=== PATIENT | male | born 1970 | race Caucasian/White ===

== ENCOUNTER 2020-03-05 11:22 | Inpatient (IN) | payer MEDICARE, OTHER, SELFPAY ==
--- NOTE | 2020-03-05 11:25 | ED.PSYCH ---
HPI - Psych General Chief Complaint: Psychiatric Symptoms Stated Complaint: SECTION 12 SI W/PLAN,TROUBLE BREATHING ? COVID Time Seen by Provider: 03/05/20 11:25 Source: patient and EMS Mode of arrival: EMS Limitations: no limitations History of Present Illness HPI Narrative: 49 yo male on section 12 for SI - here with c/o whole body pain, constipation x 1 year, dyspnea - his mom is sick he thinks she has COVID MD complaint: suicidal ideation and feels depressed Onset (ago): week(s) Duration: constant History of same: Yes Relieving factors: none Exacerbating factors: none Context: significant life stressor Associated psychiatric symptoms: depression and suicidal ideation Associated symptoms: other (dyspnea, body aches, feels weak, constipated) Treatments prior to arrival: placed on mental health hold If self harm: admits thoughts of self harm Related Data Home Medications Medication Instructions Recorded Confirmed albuterol sulfate [Ventolin HFA] 2 puff INHALATION Q4H PRN 03/05/20 03/05/20 atorvastatin 80 mg PO BEDTIME 03/05/20 03/05/20 carvedilol 3.125 mg PO BID 03/05/20 03/05/20 clopidogrel 75 mg PO DAILY 03/05/20 03/05/20 insulin aspart U-100 [Novolog SUBCUT 03/05/20 U-100 Insulin aspart] insulin detemir U-100 [Levemir 25 unit SUBCUT BID 03/05/20 03/05/20 U-100 Insulin] metformin 1,000 mg PO BID 03/05/20 03/05/20 naltrexone microspheres [Vivitrol] 4 ml IM Q4W 03/05/20 03/05/20 sertraline 50 mg PO DAILY 03/05/20 03/05/20 valsartan 80 mg PO DAILY 03/05/20 03/05/20 Allergies Allergy/AdvReac Type Severity Reaction Status Date / Time levofloxacin [From Levaquin] AdvReac Rash Verified 03/05/20 11:45 morphine AdvReac Vomiting Verified 03/05/20 11:45 Penicillins AdvReac Rash Verified 03/05/20 11:45 Review of Systems Review of Systems: Constitutional : No Fever, pos Chills ENT/Mouth : No sore throat, No Rhinorrhea, No Swallowing Difficulty Eyes: No Eye Pain, No Swelling, No Redness Cardiovascular : No Chest Pain, positive SOB, No Orthopnea, positive Edema Respiratory : No Cough, No Sputum, No Wheezing, positive dyspnea Gastrointestinal : pos Nausea, No Vomiting, No Diarrhea, pos abdominal Pain, No Hematochezia, No Melena Genitourinary : No Dysuria, No Urinary Frequency, No Hematuria Musculoskeletal : No joint pain, No Myalgias Skin : No Skin Lesions, No rash Neuro : pos Weakness, No Numbness, No Dizziness, No Headache Psych : No Anxiety/Panic, pos Depression, pos SI Heme/Lymph: No Bruising, No Lymphadenopathy Endocrine : No Polyuria, No Polydipsia All other systems reviewed and are negative [facility] Past Medical History Medical History Depression Diabetes Social History Social History Alcohol intake: never Smoking Status: Never smoker Use of substances other than those prescribed or required for medical reasons: Yes Substance Use Type: Crack/Cocaine Advance Directives: No Advance Directives Information Provided: No Physical Exam Vital Signs: Vital Signs: Last Vital Signs Temp 98.3 F 03/05/20 11:39 Pulse 85 03/05/20 11:39 Resp 16 03/05/20 11:39 BP 113/63 03/05/20 11:39 Pulse Ox 96 03/05/20 11:39 Body Mass Index 32.0 Appearance: Alert. Oriented X3. No acute distress. Eyes: Pupils equal, round and reactive to light. ENT: Pharynx normal. Neck: Normal inspection. Neck supple. CVS: Normal heart rate and rhythm. Pulses normal. Respiratory: No respiratory distress. Breath sounds normal. Abdomen: Soft and nontender. Skin: Skin warm and dry. Normal skin color. Normal skin turgor. Extremities: No lower extremity edema. No calf ttp Neuro: Oriented X 3. No motor deficit. No sensory deficit. Course Course Course Narrative: signed out pending repeat troponin, ddimer under upper limits of normal , no hypoxia, no tachycardia, unknown cause for elevated troponin MDM - Psych MDM Narrative Medical decision making narrative: 49 yo male with multiple medical problems here with c/o not feeling x 2 weeks both mentally and physically here on section 12 for SI reports c/o whole body pain, feels short of breath, constipated x 1 year, at this time will obtain basic labs, EKG, CXR covid test, CT scan for mass - if medical workup negative anticipate referral to [facility] for psychiatric component Lab Data Result diagrams: 03/05/20 12:21 03/05/20 12:22 Labs: Lab Results 03/05/20 03/05/20 03/05/20 Range/Units 11:53 12:21 12:22 WBC 12.5 H (4.8-10.8) X10*3/uL RBC 4.52 L (4.60-5.80) X10*6/uL Hgb 13.2 L (14.0-18.0) g/dl Hct 39.0 L (42-52) % MCV 86.3 (80-98) fL MCH 29.2 (27.0-33.0) pg MCHC 33.8 (31.0-36.0) g/dl RDW 12.9 (11.0-16.0) % Plt Count 329 (160-400) X10*3/uL MPV 10.7 (9.4-12.4) fL Immature Gran % (Auto) 0.4 (0.0-0.4) % Neut % (Auto) 74.9 H (45-73) % Lymph % (Auto) 17.3 L (20-40) % [place] % (Auto) 6.3 (2-11) % Eos % (Auto) 0.9 (0-4) % Baso % (Auto) 0.2 (0-2) % Lymph # (Auto) 2.2 (1.2-4.9) X10*3/uL [place] # (Auto) 0.8 (0.1-1.2) X10*3/uL Eos # (Auto) 0.1 (0.0-0.4) X10*3/uL Baso # (Auto) 0.0 (0.0-0.2) X10*3/uL Abs Immat Gran (auto) 0.05 H (0.00-0.03) X10*3/uL Absolute Neuts (auto) 9.4 H (2.0-8.3) X10*3/uL Absolute Nucleated RBC 0.000 (0.0-0.012) X10*3/uL Nucleated RBC % (auto) 0.0 (0.0-0.2) /100WBC D-Dimer 274 NG/ML Hold Blue Top SEE NOTE Sodium (135-145) mmol/L Potassium (3.3-5.1) mmol/l Chloride (96-108) mmol/L Carbon Dioxide (22-29) mmol/L Anion Gap (12-20) BUN (9-16) mg/dL Creatinine (0.5-1.4) mg/dL Estim Creat Clear Calc Estimated GFR POC Glucose 389 H* (60-115) mg/dL Random Glucose (60-115) mg/dL Calcium (8.4-10.2) mg/dL Magnesium (1.6-2.6) mg/dL Total Bilirubin (0.0-1.0) mg/dL Direct Bilirubin (0.0-0.5) mg/dL AST (5-37) U/L ALT (0-40) U/L Alkaline Phosphatase (39-117) U/L Total Creatine Kinase (38-174) U/L Troponin I High Sens (<3.5-35.0) ng/L B-Natriuretic Peptide (<100) pg/mL Total Protein (6.5-8.0) g/dL Albumin (3.5-5.0) g/dL Lipase (8-78) U/L Coronavirus (PCR) (Negative) Influenza Type A (PCR) (Negative) Influenza Type B (PCR) (Negative) RSV RNA Qual (PCR) (Negative) 03/05/20 03/05/20 03/05/20 Range/Units 12:22 12:22 12:22 WBC (4.8-10.8) X10*3/uL RBC (4.60-5.80) X10*6/uL Hgb (14.0-18.0) g/dl Hct (42-52) % MCV (80-98) fL MCH (27.0-33.0) pg MCHC (31.0-36.0) g/dl RDW (11.0-16.0) % Plt Count (160-400) X10*3/uL MPV (9.4-12.4) fL Immature Gran % (Auto) (0.0-0.4) % Neut % (Auto) (45-73) % Lymph % (Auto) (20-40) % [place] % (Auto) (2-11) % Eos % (Auto) (0-4) % Baso % (Auto) (0-2) % Lymph # (Auto) (1.2-4.9) X10*3/uL [place] # (Auto) (0.1-1.2) X10*3/uL Eos # (Auto) (0.0-0.4) X10*3/uL Baso # (Auto) (0.0-0.2) X10*3/uL Abs Immat Gran (auto) (0.00-0.03) X10*3/uL Absolute Neuts (auto) (2.0-8.3) X10*3/uL Absolute Nucleated RBC (0.0-0.012) X10*3/uL Nucleated RBC % (auto) (0.0-0.2) /100WBC D-Dimer NG/ML Hold Blue Top Sodium 135 (135-145) mmol/L Potassium 4.8 (3.3-5.1) mmol/l Chloride 98 (96-108) mmol/L Carbon Dioxide 26 (22-29) mmol/L Anion Gap 16 (12-20) BUN 24 H (9-16) mg/dL Creatinine 1.05 (0.5-1.4) mg/dL Estim Creat Clear Calc 120.6 Estimated GFR > 60 POC Glucose (60-115) mg/dL Random Glucose 392 H* (60-115) mg/dL Calcium 9.3 (8.4-10.2) mg/dL Magnesium 1.9 (1.6-2.6) mg/dL Total Bilirubin 0.5 (0.0-1.0) mg/dL Direct Bilirubin 0.2 (0.0-0.5) mg/dL AST 12 (5-37) U/L ALT 17 (0-40) U/L Alkaline Phosphatase 132 H (39-117) U/L Total Creatine Kinase 83 (38-174) U/L Troponin I High Sens 207.9 H (<3.5-35.0) ng/L B-Natriuretic Peptide 481 H (<100) pg/mL Total Protein 6.8 (6.5-8.0) g/dL Albumin 3.7 (3.5-5.0) g/dL Lipase 36 (8-78) U/L Coronavirus (PCR) NEGATIVE (Negative) Influenza Type A (PCR) NEGATIVE (Negative) Influenza Type B (PCR) NEGATIVE (Negative) RSV RNA Qual (PCR) NEGATIVE (Negative) ECG Data Attestation: I personally reviewed and interpreted this ECG as follows: ECG interpretation date: 03/05/20 ECG interpretation time: 12:11 Interpretation: Rate: 86 Rhythm: NSR [place]: normal Normal P waves. Normal YOBANY. Normal QRS complex. ST T wave : no RADHA, nonspecific 1 and aVL qTC: normal prior studies: no acute ischemia The study has been interpreted contemporaneously by me. . Discharge Plan Discharge Clinical Impression: Acute depression, Myalgia Prescriptions: No Action metformin 500 mg tablet 1,000 mg PO BID RF: 0 atorvastatin 80 mg tablet 80 mg PO BEDTIME RF: 0 valsartan 80 mg tablet 80 mg PO DAILY RF: 0 clopidogrel 75 mg tablet 75 mg PO DAILY RF: 0 carvedilol 3.125 mg tablet 3.125 mg PO BID RF: 0 insulin aspart U-100 [Novolog U-100 Insulin aspart] 100 unit/mL solution subcut RF: 0 albuterol sulfate [Ventolin HFA] 90 mcg/actuation HFA aerosol inhaler 2 puff inhalation Q4H PRN (Reason: Shortness Of Breath) RF: 0 sertraline 50 mg tablet 50 mg PO DAILY RF: 0 Levemir U-100 Insulin 100 unit/mL solution 25 unit subcut BID RF: 0 Vivitrol 380 mg suspension,extended rel recon 4 ml IM Q4W RF: 0
[2020-03-05 11:28] VITALS: BP 113/63; PULSE 85; RESP 16; TEMP 36.8; O2SAT 96; BMI 32.0
[2020-03-05 11:39] VITALS: BP 113/63; PULSE 85; RESP 16; TEMP 36.8; O2SAT 96
--- NOTE | 2020-03-05 11:47 | CT_ITS ---
EXAMINATION: CT CHEST, ABDOMEN AND PELVIS WITHOUT IV CONTRAST CLINICAL INFORMATION: DYSPNEA. ABDOMINAL PAIN. COMPARISON: None TECHNIQUE: Axial images through the chest, abdomen and pelvis without oral or IV contrast. Sagittal and coronal reconstructions on the technologist workstation were performed. FINDINGS: Chest: Exam is limited due to artifact from respiratory motion. There is atelectasis or small infiltrate seen in the left lower lobe and there is a 3 mm right upper lobe nodule axial image 140 series 8. There are 2 small 3 and 2 mm peripheral or subpleural right upper lobe nodules adjacent to the minor fissure axial image 228 series 8. This probably represent small lymph nodes. The lungs are otherwise clear. The visualized thyroid gland is unremarkable. There is coronary artery calcification. The mediastinum is otherwise unremarkable. There is no pleural effusion or pneumothorax. No chest wall mass or enlarged axillary lymph nodes are seen. There are degenerative changes of the spine. Bony structures are unremarkable. Abdomen and pelvis: The liver is normal in size, shape and attenuation. There is high density seen dependently in the gallbladder suggestive of small gallstones. Gallbladder is otherwise normal. There is no biliary duct dilatation. The spleen is unremarkable. Pancreas is unremarkable. The adrenal glands and kidneys are unremarkable. The bladder is unremarkable. Prostate gland does not appear enlarged. Small and large bowel is unremarkable. There is a small umbilical hernia containing fat. There is evidence of mild atherosclerotic disease. No ascites or adenopathy is seen. There are degenerative changes of the lumbar spine and scoliosis. There is a Schmorl's node versus mild compression fracture of the right superior endplate of the L3 vertebral body. There are degenerative changes at the hip joints. CT/CT abdomen pelvis wo con IMPRESSION: Chest: Limited exam due to artifact from respiratory motion. Question atelectasis or small infiltrate in the left lower lobe. Small right upper lobe pulmonary nodules probably representing subpleural intrapulmonary lymph nodes. Coronary artery calcification. Abdomen and pelvis: Probable small gallstones.
[2020-03-05 12:05] LABS: Glucose, Whole Blood 389 mg/dL (60-115)
[2020-03-05 12:54] LABS: MANUAL DIFF FLAG NO
[2020-03-05 13:02] LABS: Basophils Percent Auto 0.2 % (0-2); Eosinophils Absolute Auto 0.1 X10*3/uL (0.0-0.4); Eosinophils Percent Auto 0.9 % (0-4); Hemoglobin 13.2 g/dl (14.0-18.0); Imm Gran Abs Auto 0.05 X10*3/uL (0.00-0.03); Imm Gran Pct Auto 0.4 % (0.0-0.4); Lymphocytes Absolute Auto 2.2 X10*3/uL (1.2-4.9); Lymphocytes Percent Auto 17.3 % (20-40); Mean Corpuscular HGB Conc 33.8 g/dl (31.0-36.0); Mean Corpuscular Hemoglobin 29.2 pg (27.0-33.0); Mean Corpuscular Volume 86.3 fL (80-98); Mean Platelet Volume 10.7 fL (9.4-12.4); Monocytes Absolute Auto 0.8 X10*3/uL (0.1-1.2); Monocytes Percent Auto 6.3 % (2-11); Neutrophils Absolute Auto 9.4 X10*3/uL (2.0-8.3); Neutrophils Percent Auto 74.9 % (45-73); Platelet Count 329 X10*3/uL (160-400); Red Blood Count 4.52 X10*6/uL (4.60-5.80); Red Cell Distribution Width 12.9 % (11.0-16.0); White Blood Count 12.5 X10*3/uL (4.8-10.8)
[2020-03-05 13:37] LABS: Influenza A PCR NEGATIVE (Negative); Influenza B PCR NEGATIVE (Negative); Resp Syncy Virus RNA Qual PCR NEGATIVE (Negative); SARS COV2 PCR INHOUSE NEGATIVE (Negative)
[2020-03-05 13:42] LABS: Alanine Aminotransferase 17 U/L (0-40); Albumin Level 3.7 g/dL (3.5-5.0); Alkaline Phosphatase 132 U/L (39-117); Anion Gap 16 (12-20); Aspartate Amino Transferase 12 U/L (5-37); Bilirubin Direct 0.2 mg/dL (0.0-0.5); Bilirubin Total 0.5 mg/dL (0.0-1.0); Blood Urea Nitrogen 24 mg/dL (9-16); Calcium 9.3 mg/dL (8.4-10.2); Carbon Dioxide 26 mmol/L (22-29); Chloride 98 mmol/L (96-108); Creatinine Clr Calc Pharmacy 120.6; Estimated Glomerular Filt Rate > 60; Glucose Random 392 mg/dL (60-115); Lipase 36 U/L (8-78); Magnesium 1.9 mg/dL (1.6-2.6); Potassium 4.8 mmol/l (3.3-5.1); Sodium 135 mmol/L (135-145); Total Protein 6.8 g/dL (6.5-8.0)
[2020-03-05 13:44] LABS: B Type Natriuretic Peptide 481 pg/mL (<100); Troponin-I High Sensitivity 207.9 ng/L (<3.5-35.0)
[2020-03-05 13:57] LABS: D Dimer 274 NG/ML
[2020-03-05] MEDS: Aspirin 81 MG TAB.CHEW 162 MG PO (13:57)
[2020-03-05] MEDS: Insulin Regular, Human 100 UNIT/ML 3 ML VIAL IVPUSH (13:57)
--- NOTE | 2020-03-05 16:26 | ECG_ITS ---
Test Reason : REPEAT Blood Pressure : / mmHG Vent. Rate : 079 BPM Atrial Rate : 079 BPM P-R Int : 158 ms QRS Dur : 116 ms QT Int : 388 ms P-R-T Axes : 037 -20 099 degrees QTc Int : 444 ms Normal sinus rhythm Low voltage QRS Inferior infarct , age undetermined Abnormal ECG When compared with ECG of 05-MAR-2020 11:40, No significant change was found Referred By: Baljeet Jolly Electronically Signed By:KENNEDY RESENDEZ
--- NOTE | 2020-03-05 16:27 | ECG_ITS ---
Test Reason : CHEST PAIN Blood Pressure : / mmHG Vent. Rate : 086 BPM Atrial Rate : 086 BPM P-R Int : 156 ms QRS Dur : 114 ms QT Int : 368 ms P-R-T Axes : 044 -17 094 degrees QTc Int : 440 ms Normal sinus rhythm Low voltage QRS Nonspecific ST and T wave abnormality Abnormal ECG No previous ECGs available Referred By: Baljeet Jolly Electronically Signed By:KENNEDY RESENDEZ
--- NOTE | 2020-03-05 16:29 | PC.NURSE ---
Patient states to MD and this nurse that he no longer feels si. sitter was removed.
--- NOTE | 2020-03-05 16:45 | CA_ITS ---
Transthoracic Echocardiogram Patient (Last, First, Middle): Kyle Shepard, Gender: Male Date of : 1970 Age: 49 Procedure Date: 03/05/2020 Procedure Type: Transthoracic Echocardiogram Location: ER Height: 195.58 cm Weight: 122.47 kg BSA: 2.54 m2 Heart Rate: bpm BP: 124 / 76 mmHg Bicycle Service Technician: Referring MD: Baljeet Jolly MD Symptoms: elevated trop I for LV fn Study Quality: Technically Difficult due to obesity ECG Rhythm: Sinus Conclusions: - The left ventricular systolic function is moderate to severely decreased. The visually estimated ejection fraction is between 30-35%. - There is mild mitral valve regurgitation. Findings Procedure Information Contrast agent, definity, is being given per protocol without apparent complications. Left Ventricle Normal left ventricular cavity size. There is mildly increased left ventricular wall thickness. The left ventricular systolic function is moderate to severely decreased. The visually estimated ejection fraction is between 30-35%. The calculated ejection fraction is 32% by biplane method. Diastolic function is normal for age. Globally hypokinetic. Right Ventricle Mildly increased right ventricular cavity size. There is normal right ventricular systolic function. Atria The left atrium is mildly dilated. The right atrium is normal in size. Aortic Valve There is a normal trileaflet aortic valve. There is no aortic valve stenosis. There is trace (trivial) aortic valve regurgitation. Mitral Valve The mitral valve appears normal. There is mild mitral valve regurgitation. There is no mitral valve stenosis. Pulmonic Valve The pulmonic valve was not well visualized. Tricuspid Valve Normal tricuspid valve structure. There is trace tricuspid valve regurgitation. The pulmonary artery systolic pressure is normal. Great Vessels The aortic annulus, sinuses of valsalva, and asc aorta are normal in size. Venous The inferior vena cava was not well visualized. Pericardium/Pleural There is no evidence of pericardial effusion. Prior Study Comparison No prior study available for comparison. Measurements 2D Linear Measurements IVSd: 1.23 0.6-0.9/0.6-1.0 cm LVIDd: 5.54 3.9-5.3/4.2-5.9 cm LVIDd Index: 2.18 2.4-3.2/2.2-3.1 cm/m2 LVIDs: 4.41 2.0-3.6 cm LVPWd: 1.22 0.7-1.1 cm Ao Root: 3.20 2.1-3.5 cm LA Diam: 4.80 2.7-3.8/3.0-4.0 cm LAIDs Index: 1.89 1.5-2.3 cm/m2 LV Mass: 353.65 67-162/88-224 g LV Mass Index: 139.23 43-95/49-115 g/m2 LVOT Diam: 2.50 3.0+(-)1.3 cm 2D Systolic Function EF 4C: 32.00 >55% EF 2C: 27.20 >55% EF BiP: 31.70 >55% Mitral Valve MV Pk E: 0.81 MV PK A: 0.85 MV Decel Time: 176.00 E/A: 1.00 E'Lateral: 11.90 E'Medial: 6.87 E/E' Med: 11.80 E/E' Lat: 6.80 PHT: 52.00 MVA PHT: 4.23 Decel [place]: 4.60 Aortic Valve AoV Pk Peter: 1.30 AoV Mn Peter: 0.87 AoV VTI: 0.27 AoV Pk Grad: 7.00 Aov Mn Grad: 3.00 MARI Cont.VTI: 2.89 LVOT LVOT Pk Peter: 0.82 LVOT Mn Peter: 0.50 LVOT VTI: 0.16 LVOT Pk Grad: 3.00 LVOT Mn Grad: 1.00 LVOT Diam: 2.50 LVOT Area: 4.91 Diastolic Function MV Pk E: 0.81 MV Pk A: 0.85 E/A: 1.00 E'Medial: 6.87 E/E' Med: 11.80 E' Laterial: 11.90 E/E' Lat: 6.80 Tricuspid Valve TR Pk Peter: 2.08 TR Pk Grad: 17.00 RA Press: 3.00 RVSP: 20.00 Great Vessels Aorta Ao Root-2D: 3.20 2.0-3.7 cm Pulmonary Valve PV Pk Peter: 0.92 Peak PV Grad: 3.00 Updated in Other Vendor System with Status of Final Timothy Zapata MD electronically signed on 03/06/2020 12:05:40 PM with status of Final
[2020-03-05 16:46] LABS: Troponin-I High Sensitivity 212.8 ng/L (<3.5-35.0)
[2020-03-05] MEDS: Insulin Lispro 100 UNIT/ML 3 ML VIAL 10 UNIT SUBCUT (17:34)
[2020-03-05] MEDS: ondansetron HCL 4 MG/2 ML VIAL IVPUSH (17:35)
[2020-03-05] MEDS: Nitroglycerin 2 % Oint 1 GM Packet 0.5 INCH TRANSDERMA (17:35)
[2020-03-05] MEDS: 0.9 % Sodium Chloride 1,000 ML 999 ML IVCONT (17:35)
[2020-03-05 18:17] LABS: Glucose Urine UA >=1000 MG/DL (NEG); Leukocyte Esterase Urine NEG (NEG); Nitrite Urine NEG (NEG); PH 5.5 (5.0-8.0); Specific Gravity - Urine 1.015 (1.005-1.025); Urine Blood TRACE (NEG); Urine Ketones NEG (NEG); Urine Protein 2+ MG/DL (NEG-TRACE)
[2020-03-05 18:24] LABS: Appearance Urine CLEAR; Color Urine YELLOW
[2020-03-05 18:26] VITALS: BP 119/72; PULSE 92; RESP 18; O2SAT 96
[2020-03-05 18:38] LABS: Amphetamine Screen Urine Not Detected (Not Detect); Barbiturates, Urine Not Detected (Not Detect); Benzodiazepines Screen Urine Not Detected (Not Detect); Cannabinoid Screen Urine Not Detected (Not Detect); Cocaine Screen Urine POSITIVE (Not Detect); Opiate Screen Urine Not Detected (Not Detect); Phencyclidine Screen Urine Not Detected (Not Detect)
--- NOTE | 2020-03-05 18:38 | PM.EVENT ---
Event Note Date of Service: 03/06/20 Event Note: This patient is seen and examined with APC. Patient came with some question of chest tightness-positional, reproducible, question of pleuritic component also He also has some cough Denies any fever or chills He also says that as he feel constipated and also have reflux like symptoms. Active in cocaine user Has history of cardiomyopathy. Lab imaging, EKG reviewed.: Has mild leukocytosis, hyperglycemia/uncontrolled diabetes, troponin in range of 200 but deltoid less than 50 % Currently denies any chest pain or shortness of breath COVID negative CT chest-question of small pneumonia versus atelectasis Physical exam : Cvs: rrr, [id number] , no murmur res: fair air entry , has few rhonchii abd: no rebound or guarding ,nt, bs present. ext pulses present , no cyanosis neuro: axo3 , nonfocal. assessment and plan coordinated in APCs note, Agree with the plan in addition: 1. Probable pneumonia: We will treat with antibiotics Add procalcitonin level Since the symptom is maybe a week ago so we will add the are yes panel also just to see if viral uri. 2. Chest pain: Seems atypical Troponin positive but question may related to cocaine use History of cardiomyopathy Aspirin, nitro, in the ED cardio eval Will continue home medications for high blood pressure carvedilol , valsartan Continue aspirin and Plavix history history of cardiomyopathy as above. 3. Diabetes/hyperglycemia: Received 10 unit of subcutaneous lispro Please monitor fingersticks with coverage and continue home insulin regimen which Detemir Probably noncompliance to meds. 4. SI: Sitter Patient will need BH and clearance before discharge. He was counseled in detail to avoid cocaine-added drug screen avoid. Constipation sanchez we will add laxatives.
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
[2020-03-05 18:56] LABS: Bacteria Urine TRACE /LPF; Squamous Epithelial Cell Urine 1+ /LPF; UACC CULT YES
[2020-03-05 19:19] LABS: Procalcitonin 0.04 ng/mL
[2020-03-05 19:38] VITALS: BP 114/69; PULSE 81; RESP 17; TEMP 36.8; O2SAT 99
--- NOTE | 2020-03-05 19:44 | PC.NURSE ---
PT DIFF LAB DRAW CAUSING DELAY , PCT AT BEDSIDE NOW
[2020-03-05 19:49] LABS: Glucose, Whole Blood 354 mg/dL (60-115)
[2020-03-05 19:51] LABS: Prothrombin Time 12.4 SEC (10.8-13.0)
[2020-03-05 19:54] LABS: Partial Thromboplastin Time 32.2 SEC (24.1-38.0)
[2020-03-05] MEDS: cefTRIAXone sodium 1 GM in 0.9 % Sodium Chloride 50 ML IV (19:54)
[2020-03-05 20:03] LABS: Lactic Acid 1.5 mmol/L (0.5-2.0)
[2020-03-05] MEDS: Azithromycin 500 MG in 0.9 % Sodium Chloride 250 ML 125 MG IV (20:46)
--- NOTE | 2020-03-05 21:40 | MHC.CARE ---
CARE Team speaks with Jared at [facility] crisis services. [facility] assessed pt in the community with disposition for section 12 bedsearch. CARE Team communicates to [facility] that pt is being medically admitted. Med floor providers should reach out to [facility] crisis for re-eval once pt is medically cleared, should this be indicated at that time.
[2020-03-05 21:53] VITALS: BP 103/66; PULSE 96; RESP 16; TEMP 36.5; O2SAT 95
[2020-03-05 22:21] LABS: Glucose, Whole Blood 363 mg/dL (60-115)
[2020-03-05] MEDS: LORazepam 2 MG/ML VIAL 1 MG IVPUSH (22:28)
[2020-03-05 22:29] VITALS: BP 111/69; PULSE 81
[2020-03-05] MEDS: carvediloL 3.125 MG TABLET PO (22:29)
[2020-03-05] MEDS: Atorvastatin Calcium 80 MG TABLET PO (22:29)
[2020-03-05] MEDS: Insulin Lispro 100 UNIT/ML 3 ML VIAL SUBCUT (22:33)
[2020-03-05] MEDS: Insulin Glargine,Hum.rec.anlog 100 UNIT/ML 10 ML VIAL 35 UNIT SUBCUT (22:33)
[2020-03-05] MEDS: Enoxaparin Sodium 40 MG/0.4 ML SYRINGE SUBCUT (22:36)
[2020-03-06] VITALS (7 sets, daily range): BP systolic 98–135; BP diastolic 48–73; PULSE 75–86; RESP 15–19; TEMP 36.3–36.8; O2SAT 93–96; BMI 32.0
[2020-03-06 01:15] LABS: Glucose, Whole Blood 285 mg/dL (60-115)
[2020-03-06] MEDS: hydrOXYzine HCL 25 MG TABLET PO (01:34)
[2020-03-06] MEDS: 0.9 % Sodium Chloride Flush 3 ML SYRINGE IVFLUSH ×3 (01:34→15:32)
--- NOTE | 2020-03-06 02:14 | MHC.PIE ---
p: patient with report of chest tightness, better than on admission. ? repeat troponins? ? repeat EKG? i: assess patient, discuss with MD e: patient reports his chest tightness is now 5/10, worse on deep inspiration, worse with cough better on palpation, nonradiating. Patient described as feeling like heartburn, maybe? and better since that cream, endorsing that the nitropaste had helped. Reports hiccoughs. Troponins were drawn 2x earlier, last set at approximately 16:00, and not scheduled for repeat. Last EKG was done at 1647 03/05. Discussed with MD and no need to recheck troponins or recheck EKG at this time per MD.
[2020-03-06] MEDS: LORazepam 2 MG/ML VIAL 1 MG IVPUSH ×3 (05:02→21:38)
--- NOTE | 2020-03-06 05:13 | PC.NURSE ---
pt has meds in pt specific bin of Pod B
--- NOTE | 2020-03-06 05:31 | PC.NURSE ---
pt requested medication for anxiety. @ 330. ordered hydroxyzine. Pt took med and an hour late, said it didn't do shit for me . Requested a strong medication. Md ordered one time dose of Ativan 1 mg. Pt was able to fall asleep after med was given
[2020-03-06 06:15] LABS: MANUAL DIFF FLAG NO
[2020-03-06 06:28] LABS: Basophils Percent Auto 0.4 % (0-2); Eosinophils Absolute Auto 0.2 X10*3/uL (0.0-0.4); Eosinophils Percent Auto 2.2 % (0-4); Hematocrit 34.2 % (42-52); Hemoglobin 11.3 g/dl (14.0-18.0); Imm Gran Abs Auto 0.02 X10*3/uL (0.00-0.03); Imm Gran Pct Auto 0.2 % (0.0-0.4); Lymphocytes Percent Auto 32.3 % (20-40); Mean Corpuscular Hemoglobin 28.9 pg (27.0-33.0); Mean Corpuscular Volume 87.5 fL (80-98); Mean Platelet Volume 10.9 fL (9.4-12.4); Monocytes Absolute Auto 0.7 X10*3/uL (0.1-1.2); Monocytes Percent Auto 7.4 % (2-11); Neutrophils Absolute Auto 5.3 X10*3/uL (2.0-8.3); Neutrophils Percent Auto 57.5 % (45-73); Platelet Count 285 X10*3/uL (160-400); Red Blood Count 3.91 X10*6/uL (4.60-5.80); White Blood Count 9.1 X10*3/uL (4.8-10.8)
[2020-03-06 07:10] LABS: Anion Gap 14 (12-20); Blood Urea Nitrogen 27 mg/dL (9-16); Calcium 8.3 mg/dL (8.4-10.2); Carbon Dioxide 22 mmol/L (22-29); Chloride 102 mmol/L (96-108); Creatinine Clr Calc Pharmacy 124.1; Estimated Glomerular Filt Rate > 60; Glucose Random 269 mg/dL (60-115); Potassium 4.3 mmol/l (3.3-5.1); Sodium 134 mmol/L (135-145)
[2020-03-06 07:22] LABS: Glucose, Whole Blood 281 mg/dL (60-115)
[2020-03-06] MEDS: carvediloL 3.125 MG TABLET PO ×2 (08:39→20:53)
[2020-03-06] MEDS: Valsartan 80 MG TABLET PO (08:39)
[2020-03-06] MEDS: Sertraline HCL 50 MG TABLET PO (08:39)
[2020-03-06] MEDS: Clopidogrel Bisulfate 75 MG TABLET PO (08:39)
[2020-03-06] MEDS: Insulin Lispro 100 UNIT/ML 3 ML VIAL SUBCUT ×4 (08:41→20:55)
[2020-03-06] MEDS: polyethylene glycoL 3350 17 GM POWD.PACK PO (08:57)
[2020-03-06 09:16] LABS: Glucose, Whole Blood 349 mg/dL (60-115)
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
[2020-03-06 11:16] LABS: Adenovirus PCR Not Detected (Not Detect.); Bordetella parapertussis PCR Not Detected (Not Detect.); Bordetella pertussis PCR Not Detected (Not Detect.); Chlamydia pneumoniae PCR Not Detected (Not Detect.); Coronavirus 229E PCR Not Detected (Not Detect.); Coronavirus HKU1 PCR Not Detected (Not Detect.); Coronavirus NL63 PCR Not Detected (Not Detect.); Coronavirus OC43 PCR Not Detected (Not Detect.); Human metapneumovirus PCR Not Detected (Not Detect.); Influenza A PCR Not Detected (Not Detect.); Influenza B PCR Not Detected (Not Detect.); Mycoplasma pneumoniae PCR Not Detected (Not Detect.); Parainfluenza 1 PCR Not Detected (Not Detect.); Parainfluenza 2 PCR Not Detected (Not Detect.); Parainfluenza 3 PCR Not Detected (Not Detect.); Parainfluenza 4 PCR Not Detected (Not Detect.); RSV PCR Not Detected (Not Detect.); SARS-CoV-2 PCR Not Detected (Not Detect.)
[2020-03-06 11:16] LABS: Glucose, Whole Blood 293 mg/dL (60-115)
--- NOTE | 2020-03-06 11:35 | PC.NURSE ---
Patient extrememly agitated that he cannot receive IV ativan for anxiety. He is demanding to go home if you all wont give me IV meds. I dont want pills by mouth. They take to long to work. Dr silverman aware and pt is not allowed to sign out AMA d/t to SI status at present. Atarax ordered PO but pt is refusing. MD will be up to see patient when able this afternoon to discuss. Sitter continues to be with patient.
[2020-03-06] MEDS: guaiFEN/Codeine SF 200/20/10ML 10 ML LIQUID 5 ML PO ×2 (11:58→15:30)
[2020-03-06 12:16] LABS: Rhino/Enterovirus PCR Detected (Not Detect.)
--- NOTE | 2020-03-06 14:31 | HO.PM.IMPN ---
Subjective Subjective Date of Service: 03/06/20 Physical Exam Vital Signs: Vital Signs: Last Vital Signs Temp 97.8 F 03/06/20 11:20 Pulse 75 03/06/20 11:20 Resp 17 03/06/20 11:20 BP 106/48 L 03/06/20 11:20 Pulse Ox 94 03/06/20 11:20 Body Mass Index 32.0 Objective Data Current Medications Generic Name Dose Route Start Last Admin Trade Name Freq PRN Reason Stop Dose Admin Acetaminophen 650 mg 03/05/20 19:55 Acetaminophen 325 Mg Tablet PO Q6H PRN Pain, Mild (Pain Scale 1-3) Albuterol Sulfate 2 puff 03/05/20 19:55 Albuterol Sulfate 90 Mcg 8 Gm Inhaler INHALE Q4H PRN Shortness Of Breath Atorvastatin Calcium 80 mg 03/05/20 21:00 03/05/20 22:29 Atorvastatin Calcium 80 Mg Tablet PO 80 mg BEDTIME VISHNU Administration Carvedilol 3.125 mg 03/05/20 21:00 03/06/20 08:39 Carvedilol 3.125 Mg Tablet PO 3.125 mg BID VISHNU Administration Protocol Clopidogrel Bisulfate 75 mg 03/06/20 09:00 03/06/20 08:39 Clopidogrel Bisulfate 75 Mg Tablet PO 75 mg DAILY VISHNU Administration Docusate Sodium 100 mg 03/05/20 19:55 Docusate Sodium 100 Mg Capsule PO DAILY PRN Constipation Enoxaparin Sodium 40 mg 03/05/20 22:00 03/05/20 22:36 Enoxaparin Sodium 40 Mg/0.4 Ml Syringe SUBCUT 40 mg Q24H VISHNU Administration Guaifenesin/Codeine Phosphate 5 ml 03/06/20 10:00 03/06/20 11:58 Guaifen/Codeine Sf 200/20/10ml 10 Ml Liquid PO 5 ml Q4H VISHNU Administration Hydroxyzine HCl 25 mg 03/06/20 00:43 03/06/20 01:34 Hydroxyzine Hcl 25 Mg Tablet PO 25 mg Q6H PRN Administration anxiety/restlessness Ceftriaxone Sodium 1 gm/ 50 mls @ 100 mls/hr 03/05/20 18:45 03/05/20 20:35 Sodium Chloride IV Infused Q24H VISHNU Infusion Azithromycin 500 mg/ Sodium 250 mls @ 125 mls/hr 03/05/20 18:45 03/06/20 01:28 Chloride IV Infused Q24H VISHNU Infusion Insulin Glargine 35 unit 03/05/20 21:00 03/05/20 22:33 Insulin Glargine,Hum.Rec.Anlog 100 Unit/Ml 10 Ml Vial SUBCUT 35 unit BEDTIME VISHNU Administration Insulin Human Lispro 0 unit 03/05/20 21:00 03/06/20 12:47 Insulin Lispro 100 Unit/Ml 3 Ml Vial SUBCUT 6 unit QIDACHS VISHNU Administration Protocol Lorazepam 0.5 mg 03/06/20 11:45 Lorazepam 0.5 Mg Tablet PO Q8H PRN Anxiety Ondansetron HCl 4 mg 03/05/20 19:55 Ondansetron Hcl 4 Mg/2 Ml Vial IVPUSH Q8H PRN Nausea and Vomiting Pharmacy Consult 1 each 03/05/20 13:46 Consult Rx Perform Med Rec MISCELLANE ONCE PRN Consult order Polyethylene Glycol 17 gm 03/06/20 09:00 03/06/20 08:57 Polyethylene Glycol 3350 17 Gm Powd.Pack PO 17 gm DAILY VISHNU Administration Sertraline HCl 50 mg 03/06/20 09:00 03/06/20 08:39 Sertraline Hcl 50 Mg Tablet PO 50 mg DAILY VISHNU Administration Sodium Chloride 3 ml 03/06/20 00:00 03/06/20 08:43 0.9 % Sodium Chloride Flush 3 Ml Syringe IVFLUSH 3 ml QSHIFT VISHNU Administration Valsartan 80 mg 03/06/20 09:00 03/06/20 08:39 Valsartan 80 Mg Tablet PO 80 mg DAILY VISHNU Administration Protocol Labs CBC & Chem 7: 03/06/20 05:29 03/06/20 05:29 Microbiology Microbiology Results: Microbiology 03/05/20 18:00 Urine clean catch - Clean Catch Midstream Urine Culture - Preliminary No growth to date.
--- NOTE | 2020-03-06 14:32 | HO.PM.IMPN ---
Subjective Subjective Date of Service: 03/06/20 Interval History: dm hyperglycemia , chest pain Review of Systems chest pain seems to be improving has cough seems anxious Physical Exam Vital Signs: Vital Signs: Last Vital Signs Temp 97.8 F 03/06/20 11:20 Pulse 75 03/06/20 11:20 Resp 17 03/06/20 11:20 BP 106/48 L 03/06/20 11:20 Pulse Ox 94 03/06/20 11:20 Body Mass Index 32.0 Physical exam: Constitutional: Seems anxious, HEENT: Eyes anicteric, no discharge. Neck supple Cvs: rrr, [id number] , no murmur res: clear to auscultation ,no rhonchii or wheezing abd: no rebound or guarding ,nt, bs present. ext pulses present , no cyanosis neuro: axo3 , nonfocal. Objective Data Current Medications Generic Name Dose Route Start Last Admin Trade Name Freq PRN Reason Stop Dose Admin Acetaminophen 650 mg 03/05/20 19:55 Acetaminophen 325 Mg Tablet PO Q6H PRN Pain, Mild (Pain Scale 1-3) Albuterol Sulfate 2 puff 03/05/20 19:55 Albuterol Sulfate 90 Mcg 8 Gm Inhaler INHALE Q4H PRN Shortness Of Breath Atorvastatin Calcium 80 mg 03/05/20 21:00 03/05/20 22:29 Atorvastatin Calcium 80 Mg Tablet PO 80 mg BEDTIME VISHNU Administration Carvedilol 3.125 mg 03/05/20 21:00 03/06/20 08:39 Carvedilol 3.125 Mg Tablet PO 3.125 mg BID VISHNU Administration Protocol Clopidogrel Bisulfate 75 mg 03/06/20 09:00 03/06/20 08:39 Clopidogrel Bisulfate 75 Mg Tablet PO 75 mg DAILY VISHNU Administration Docusate Sodium 100 mg 03/05/20 19:55 Docusate Sodium 100 Mg Capsule PO DAILY PRN Constipation Enoxaparin Sodium 40 mg 03/05/20 22:00 03/05/20 22:36 Enoxaparin Sodium 40 Mg/0.4 Ml Syringe SUBCUT 40 mg Q24H VISHNU Administration Guaifenesin/Codeine Phosphate 5 ml 03/06/20 10:00 03/06/20 11:58 Guaifen/Codeine Sf 200/20/10ml 10 Ml Liquid PO 5 ml Q4H VISHNU Administration Hydroxyzine HCl 25 mg 03/06/20 00:43 03/06/20 01:34 Hydroxyzine Hcl 25 Mg Tablet PO 25 mg Q6H PRN Administration anxiety/restlessness Ceftriaxone Sodium 1 gm/ 50 mls @ 100 mls/hr 03/05/20 18:45 03/05/20 20:35 Sodium Chloride IV Infused Q24H VISHNU Infusion Azithromycin 500 mg/ Sodium 250 mls @ 125 mls/hr 03/05/20 18:45 03/06/20 01:28 Chloride IV Infused Q24H VISHNU Infusion Insulin Glargine 35 unit 03/05/20 21:00 03/05/20 22:33 Insulin Glargine,Hum.Rec.Anlog 100 Unit/Ml 10 Ml Vial SUBCUT 35 unit BEDTIME VISHNU Administration Insulin Human Lispro 0 unit 03/05/20 21:00 03/06/20 12:47 Insulin Lispro 100 Unit/Ml 3 Ml Vial SUBCUT 6 unit QIDACHS VISHNU Administration Protocol Lorazepam 0.5 mg 03/06/20 11:45 Lorazepam 0.5 Mg Tablet PO Q8H PRN Anxiety Ondansetron HCl 4 mg 03/05/20 19:55 Ondansetron Hcl 4 Mg/2 Ml Vial IVPUSH Q8H PRN Nausea and Vomiting Pharmacy Consult 1 each 03/05/20 13:46 Consult Rx Perform Med Rec MISCELLANE ONCE PRN Consult order Polyethylene Glycol 17 gm 03/06/20 09:00 03/06/20 08:57 Polyethylene Glycol 3350 17 Gm Powd.Pack PO 17 gm DAILY VISHNU Administration Sertraline HCl 50 mg 03/06/20 09:00 03/06/20 08:39 Sertraline Hcl 50 Mg Tablet PO 50 mg DAILY VISHNU Administration Sodium Chloride 3 ml 03/06/20 00:00 03/06/20 08:43 0.9 % Sodium Chloride Flush 3 Ml Syringe IVFLUSH 3 ml QSHIFT ON LICENSE OF [facility] Administration Valsartan 80 mg 03/06/20 09:00 03/06/20 08:39 Valsartan 80 Mg Tablet PO 80 mg DAILY IVSHNU Administration Protocol Labs CBC & Chem 7: 03/06/20 05:29 03/06/20 05:29 Microbiology Microbiology Results: Microbiology 03/05/20 18:00 Urine clean catch - Clean Catch Midstream Urine Culture - Preliminary No growth to date. Assessment and Plan (1) Elevated troponin: Status: Acute (2) Pneumonia: Status: Acute Assessment and Plan: 1. Probable pneumonia: We will treat with antibiotics blood cultures pending entero/rhino virus-uri positive continue antibiotics 2. Chest pain: Seems atypical Troponin positive but question may related to cocaine use History of cardiomyopathy Aspirin, nitro, in the ED cardio eval Will continue home medications for high blood pressure carvedilol , valsartan, aspirin and Plavix . 3. Diabetes/hyperglycemia: still uncontrolled fs 260-280 adjust lantus 40 units , adjusted sliding scale coverage. 4. SI/ mood : continue sertraline Sitter still anxious-add po ativan prn Patient will need BH and clearance before discharge. 5. cocaine abuse : utox positive psych eval
--- NOTE | 2020-03-06 15:33 | MHC.CM.PN ---
IMM 03/06/20 Male 49 DX SI elevated troponin. Pt lives with his mother. She is throwing me out per Pt report. He is independent with equipment. L BRICE, He has a prothesis @ home. He also has a WC. DP home vs [facility]. [facility] [place] will arrange for transportation. CM will follow.
[2020-03-06 16:27] LABS: Glucose, Whole Blood 350 mg/dL (60-115)
[2020-03-06] MEDS: cefTRIAXone sodium 1 GM in 0.9 % Sodium Chloride 50 ML IV (17:38)
[2020-03-06] MEDS: Azithromycin 500 MG in 0.9 % Sodium Chloride 250 ML 125 MG IV (18:34)
[2020-03-06 20:31] LABS: Glucose, Whole Blood 333 mg/dL (60-115)
[2020-03-06] MEDS: Atorvastatin Calcium 80 MG TABLET PO (20:53)
[2020-03-06] MEDS: Insulin Glargine,Hum.rec.anlog 100 UNIT/ML 10 ML VIAL 40 UNIT SUBCUT (20:54)
[2020-03-06] MEDS: Enoxaparin Sodium 40 MG/0.4 ML SYRINGE SUBCUT (20:55)
[2020-03-06] MEDS: Acetaminophen 325 MG TABLET 650 MG PO (21:38)
[2020-03-07 04:00] VITALS: PULSE 68
[2020-03-07] MEDS: LORazepam 0.5 MG TABLET PO ×2 (04:10→13:04)
[2020-03-07] MEDS: hydrOXYzine HCL 25 MG TABLET PO (04:11)
[2020-03-07 07:09] VITALS: BP 116/67; PULSE 75; RESP 19; TEMP 36.4; O2SAT 97
[2020-03-07 07:12] LABS: Glucose, Whole Blood 264 mg/dL (60-115)
[2020-03-07 07:17] LABS: Anion Gap 14 (12-20); Blood Urea Nitrogen 29 mg/dL (9-16); Calcium 8.1 mg/dL (8.4-10.2); Carbon Dioxide 23 mmol/L (22-29); Chloride 103 mmol/L (96-108); Creatinine Clr Calc Pharmacy 124.1; Estimated Glomerular Filt Rate > 60; Glucose Random 273 mg/dL (60-115); Potassium 4.5 mmol/l (3.3-5.1); Sodium 135 mmol/L (135-145)
[2020-03-07] MEDS: guaiFEN/Codeine SF 200/20/10ML 10 ML LIQUID 5 ML PO ×2 (08:22→13:04)
[2020-03-07] MEDS: Insulin Lispro 100 UNIT/ML 3 ML VIAL SUBCUT ×3 (08:22→16:46)
[2020-03-07] MEDS: Clopidogrel Bisulfate 75 MG TABLET PO (08:23)
[2020-03-07] MEDS: Sertraline HCL 50 MG TABLET PO (08:23)
[2020-03-07] MEDS: Valsartan 80 MG TABLET PO (08:23)
[2020-03-07] MEDS: carvediloL 3.125 MG TABLET PO (08:23)
[2020-03-07] MEDS: 0.9 % Sodium Chloride Flush 3 ML SYRINGE IVFLUSH (08:24)
--- NOTE | 2020-03-07 10:26 | MHC.RECOVRN ---
Addendum entered by Trudi Blandon 03/07/20 11:16: Pt stated I would stab myself in the heart because it doesn't work anyway. Original Note: Revovery Support Note: On 03/05/20 pt presented to [facility] [place] with SI and was found to have pneumonia and elevated cardiac enzymes. Pt admitted to [facility] [place]. T/w met with pt in 459-1 to discuss substance use, which patient was agreeable to. Pt initially began discussing cocaine use, $60 daily IN and smoked. Pt also reported using pain pills. Pt states I don't need no more fucking medication and reports hx of Suboxone, Vivitrol, shrinks, AA/NA involvement. Pt declines substance use treatment. Pt states My mom did drugs when I was a kid. She was very selfish. Pt reports that cocaine use began in late 20s and opiate use began 10-12 years ago, after my accident. Pt eluded to accident involving steel toe boots. 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 Pt quickly became angry and agitated while discussing past surgeries regarding accident and animosity towards provider who completed the surgeries, Dr. Segovia. Pt continued to state I'd love to bash his head in with a fucking baseball bat. When t/w asked about current support system, pt stated I'm homeless. My family don't want nothing to do with me. I don't have a family. They only care about themselves, they don't understand me. My sister is always on her high horse, I can't fucking stand her. I want to wring her neck. At this point patient is extremely agitated and demonstrating to t/w how he would wring her neck. Pt continues to state I'm hoping I in the hospital here. If not I'm going to fucking commit suicide. If I see my mom I'm going to get a pot and capps and bash her head in. I'm being honest with you because I can't stand her. Pt continued I want to explode. I don't even want to talk anymore. T/w sat with patient for a few more moments while patient began to calm down and cry. T/w provided patient with t/w card if patient would like to discuss recovery further. T/w discussed patient's statements and presentation with RN, Aleta. Dr. Lares was also made aware and N will be seeing patient for evaluation.
[2020-03-07 10:57] VITALS: BP 105/69; PULSE 73; RESP 20; TEMP 36.4; O2SAT 94
[2020-03-07 11:02] LABS: Glucose, Whole Blood 260 mg/dL (60-115)
--- NOTE | 2020-03-07 11:05 | MHC.CM.PN ---
Per ROUNDS discussion, Patient experiencing both SI and HI and needs to be seen by [facility] and possible Section 12.Patient is documented to have s/s of Agitation, r/t his denied request for IV Ativan for his Anxiety. Patient has a Sitter and a history of Cocaine Use. CM will follow for dc planning.
--- NOTE | 2020-03-07 12:32 | PM.EVENT ---
Event Note Date of Service: 03/07/20 Event Note: Addiction Consult Patient seen by Recovery Support RN, please see her note for further documentation. At this time patient will require crisis eval
--- NOTE | 2020-03-07 12:37 | P.PNCA_ITS ---
Subjective Subjective Date of Service: 03/07/20 Interval history: He complains of pain everywhere. Review of Systems Cardiovascular: Reports as per HPI, Reports chest pain, Denies syncope, Denies rapid heart rate, Denies pedal edema, Denies edema, Denies claudication, Denies Loss of Consciousness, Denies palpitations, Denies dyspnea and Denies dyspnea on exertion Respiratory: Denies dyspnea and Denies dyspnea on exertion Denies syncope Endocrine: Denies palpitations Physical Exam Vital Signs: Last Vital Signs Temp 97.5 F 03/07/20 10:57 Pulse 73 03/07/20 10:57 Resp 20 03/07/20 10:57 BP 105/69 03/07/20 10:57 Pulse Ox 94 03/07/20 10:57 Body Mass Index 32.0 Const General: cooperative, comfortable and no acute distress Orientation/consciousness: patient oriented x3 HENMT Other: Unremarkable Neck Neck: Yes normal visual inspection Chest Chest palpation & inspection: normal inspection of the chest Resp Auscultation: clear to auscultation bilaterally, no crackles and no wheezes Cardio Jugular venous distension: no JVD Palpation: normal PMI Heart sounds: S1 normal heart sound present, S2 normal heart sound present, no gallops, no murmurs and no rubs GI Palpation (GI): Soft to palpation Back/Spine/Pelvis Other: unremarkable Skin General skin exam: no rashes or lesions noted Neuro General: patient oriented x3 Extrem Other: Left BKA. Psych Mental Status: mental status grossly normal Results Labs and Meds Result diagrams: 03/06/20 05:29 03/07/20 05:40 Lab results: Laboratory Results - last 24 hr 03/06/20 03/06/20 03/07/20 16:24 20:28 05:40 Sodium 135 Potassium 4.5 Chloride 103 Carbon Dioxide 23 Anion Gap 14 BUN 29 H Creatinine 1.02 Estim Creat Clear Calc 124.1 Estimated GFR > 60 POC Glucose 350 H* 333 H Random Glucose 273 H Calcium 8.1 L 03/07/20 03/07/20 07:07 10:55 Sodium Potassium Chloride Carbon Dioxide Anion Gap BUN Creatinine Estim Creat Clear Calc Estimated GFR POC Glucose 264 H 260 H Random Glucose Calcium Progress Note: A&P Assessment and plan (1) Elevated troponin: Status: Acute (2) Atherosclerotic cardiovascular disease: Status: Acute (3) Cardiomyopathy: Problem details: LVEF 30-35% 2019 Status: Inactive (4) Cocaine abuse: Status: Inactive Assessment and Plan: Cardiac studies reviewed. Cardiac catheterization was noted from 2019. 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 Nonobstructive disease elsewhere. Left main was normal. Echocar diogram from 2019 from [facility] shows LVEF 30-35%. Moderate global hypokinesis. 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 His current troponin elevation at 207 and 212. Repeat echocardiogram with LVEF 30-35% and similar to prior. Could be related to stephenie sharda use. This could also be chronic myocardial injury. Does not appear to be acute coronary syndrome. Would optimize his medical therapy and refrain from cocaine use. No further work up at this time. Fall Risk Details Current Medications: Current Medications Generic Name Dose Route Start Last Admin Trade Name Freq PRN Reason Stop Dose Admin Acetaminophen 650 mg 03/05/20 19:55 03/06/20 21:38 Acetaminophen 325 Mg Tablet PO 650 mg Q6H PRN Administration Pain, Mild (Pain Scale 1-3) Albuterol Sulfate 2 puff 03/05/20 19:55 Albuterol Sulfate 90 Mcg 8 Gm Inhaler INHALE Q4H PRN Shortness Of Breath Atorvastatin Calcium 80 mg 03/05/20 21:00 03/06/20 20:53 Atorvastatin Calcium 80 Mg Tablet PO 80 mg BEDTIME VISHNU Administration Carvedilol 3.125 mg 03/05/20 21:00 03/07/20 08:23 Carvedilol 3.125 Mg Tablet PO 3.125 mg BID VISHNU Administration Protocol Clopidogrel Bisulfate 75 mg 03/06/20 09:00 03/07/20 08:23 Clopidogrel Bisulfate 75 Mg Tablet PO 75 mg DAILY VISHNU Administration Docusate Sodium 100 mg 03/05/20 19:55 Docusate Sodium 100 Mg Capsule PO DAILY PRN Constipation Enoxaparin Sodium 40 mg 03/05/20 22:00 03/06/20 20:55 Enoxaparin Sodium 40 Mg/0.4 Ml Syringe SUBCUT 40 mg Q24H VISHNU Administration Guaifenesin/Codeine Phosphate 5 ml 03/06/20 10:00 03/07/20 08:22 Guaifen/Codeine Sf 200/20/10ml 10 Ml Liquid PO 5 ml Q4H VISHNU Administration Hydroxyzine HCl 25 mg 03/06/20 00:43 03/07/20 04:11 Hydroxyzine Hcl 25 Mg Tablet PO 25 mg Q6H PRN Administration anxiety/restlessness Ceftriaxone Sodium 1 gm/ 50 mls @ 100 mls/hr 03/05/20 18:45 03/06/20 18:16 Sodium Chloride IV Infused Q24H VISHNU Infusion Azithromycin 500 mg/ Sodium 250 mls @ 125 mls/hr 03/05/20 18:45 03/06/20 20:37 Chloride IV Infused Q24H VISHNU Infusion Insulin Glargine 40 unit 03/06/20 21:00 03/06/20 20:54 Insulin Glargine,Hum.Rec.Anlog 100 Unit/Ml 10 Ml Vial SUBCUT 40 unit BEDTIME VISHNU Administration Insulin Human Lispro 0 unit 03/05/20 21:00 03/07/20 11:43 Insulin Lispro 100 Unit/Ml 3 Ml Vial SUBCUT 6 unit QIDACHS VISHNU Administration Protocol Lorazepam 0.5 mg 03/06/20 11:45 03/07/20 04:10 Lorazepam 0.5 Mg Tablet PO 0.5 mg Q8H PRN Administration Anxiety Ondansetron HCl 4 mg 03/05/20 19:55 Ondansetron Hcl 4 Mg/2 Ml Vial IVPUSH Q8H PRN Nausea and Vomiting Pharmacy Consult 1 each 03/05/20 13:46 Consult Rx Perform Med Rec MISCELLANE ONCE PRN Consult order Polyethylene Glycol 17 gm 03/06/20 09:00 03/07/20 08:23 Polyethylene Glycol 3350 17 Gm Powd.Pack PO Not Given DAILY VISHNU Sertraline HCl 50 mg 03/06/20 09:00 03/07/20 08:23 Sertraline Hcl 50 Mg Tablet PO 50 mg DAILY VISHNU Administration Sodium Chloride 3 ml 03/06/20 00:00 03/07/20 08:24 0.9 % Sodium Chloride Flush 3 Ml Syringe IVFLUSH 3 ml QSHIFT VISHNU Administration Valsartan 80 mg 03/06/20 09:00 03/07/20 08:23 Valsartan 80 Mg Tablet PO 80 mg DAILY VISHNU Administration Protocol Time Spent With Patient Time: Total time spent is greater than 50% in coordination of care (as documented) at patient's floor/unit and/or counseling patient: Time with patient: less than 15 minutes
--- NOTE | 2020-03-07 12:52 | MHC.CARE ---
Pt to be admitted to [facility]. CARE Team mental status update assessment to follow.
--- NOTE | 2020-03-07 13:27 | P.PNIM_ITS ---
Subjective Subjective Date of Service: 03/07/20 Review of Systems No chest pain, no sob, homicidal idetion Physical Exam Vital Signs: Vital Signs: Last Vital Signs Temp 97.5 F 03/07/20 10:57 Pulse 73 03/07/20 10:57 Resp 20 03/07/20 10:57 BP 105/69 03/07/20 10:57 Pulse Ox 94 03/07/20 10:57 Body Mass Index 32.0 Const: General: No cooperative Orientation/consciousness: patient oriented x3 Resp: Effort & Inspection: normal respiratory effort Auscultation: clear to auscultation bilaterally Cardio: Rhythm: regular rhythm Heart sounds: S1 normal heart sound present and S2 normal heart sound present GI: Inspection: Yes normal to inspection Skin: General skin exam: no rashes or lesions noted Neuro: General: patient oriented x3 Psych: Insight: Poor insight present (Psych) Judgement: Poor judgement present (Psych) and Other judgement findings present (Psych) Objective Data Current Medications Generic Name Dose Route Start Last Admin Trade Name Freq PRN Reason Stop Dose Admin Acetaminophen 650 mg 03/05/20 19:55 03/06/20 21:38 Acetaminophen 325 Mg Tablet PO 650 mg Q6H PRN Administration Pain, Mild (Pain Scale 1-3) Albuterol Sulfate 2 puff 03/05/20 19:55 Albuterol Sulfate 90 Mcg 8 Gm Inhaler INHALE Q4H PRN Shortness Of Breath Atorvastatin Calcium 80 mg 03/05/20 21:00 03/06/20 20:53 Atorvastatin Calcium 80 Mg Tablet PO 80 mg BEDTIME VISHNU Administration Carvedilol 3.125 mg 03/05/20 21:00 03/07/20 08:23 Carvedilol 3.125 Mg Tablet PO 3.125 mg BID VISHNU Administration Protocol Clopidogrel Bisulfate 75 mg 03/06/20 09:00 03/07/20 08:23 Clopidogrel Bisulfate 75 Mg Tablet PO 75 mg DAILY VISHNU Administration Docusate Sodium 100 mg 03/05/20 19:55 Docusate Sodium 100 Mg Capsule PO DAILY PRN Constipation Enoxaparin Sodium 40 mg 03/05/20 22:00 03/06/20 20:55 Enoxaparin Sodium 40 Mg/0.4 Ml Syringe SUBCUT 40 mg Q24H VISHNU Administration Guaifenesin/Codeine Phosphate 5 ml 03/06/20 10:00 03/07/20 13:04 Guaifen/Codeine Sf 200/20/10ml 10 Ml Liquid PO 5 ml Q4H VISHNU Administration Hydroxyzine HCl 25 mg 03/06/20 00:43 03/07/20 04:11 Hydroxyzine Hcl 25 Mg Tablet PO 25 mg Q6H PRN Administration anxiety/restlessness Ceftriaxone Sodium 1 gm/ 50 mls @ 100 mls/hr 03/05/20 18:45 03/06/20 18:16 Sodium Chloride IV Infused Q24H VISHNU Infusion Azithromycin 500 mg/ Sodium 250 mls @ 125 mls/hr 03/05/20 18:45 03/06/20 20:37 Chloride IV Infused Q24H VISHNU Infusion Insulin Glargine 40 unit 03/06/20 21:00 03/06/20 20:54 Insulin Glargine,Hum.Rec.Anlog 100 Unit/Ml 10 Ml Vial SUBCUT 40 unit BEDTIME VISHNU Administration Insulin Human Lispro 0 unit 03/05/20 21:00 03/07/20 11:43 Insulin Lispro 100 Unit/Ml 3 Ml Vial SUBCUT 6 unit QIDACHS VISHNU Administration Protocol Lorazepam 0.5 mg 03/06/20 11:45 03/07/20 13:04 Lorazepam 0.5 Mg Tablet PO 0.5 mg Q8H PRN Administration Anxiety Ondansetron HCl 4 mg 03/05/20 19:55 Ondansetron Hcl 4 Mg/2 Ml Vial IVPUSH Q8H PRN Nausea and Vomiting Pharmacy Consult 1 each 03/05/20 13:46 Consult Rx Perform Med Rec MISCELLANE ONCE PRN Consult order Polyethylene Glycol 17 gm 03/06/20 09:00 03/07/20 08:23 Polyethylene Glycol 3350 17 Gm Powd.Pack PO Not Given DAILY VISHNU Sertraline HCl 50 mg 03/06/20 09:00 03/07/20 08:23 Sertraline Hcl 50 Mg Tablet PO 50 mg DAILY VISHNU Administration Sodium Chloride 3 ml 03/06/20 00:00 03/07/20 08:24 0.9 % Sodium Chloride Flush 3 Ml Syringe IVFLUSH 3 ml QSHIFT VISHNU Administration Valsartan 80 mg 03/06/20 09:00 03/07/20 08:23 Valsartan 80 Mg Tablet PO 80 mg DAILY VISHNU Administration Protocol Labs CBC & Chem 7: 03/06/20 05:29 03/07/20 05:40 Microbiology Microbiology Results: Microbiology 03/05/20 18:00 Urine clean catch - Clean Catch Midstream Urine Culture - Final 03/05/20 19:37 Blood - Venous Blood Culture - Preliminary No growth after 24 hours. 03/05/20 19:37 Blood - Venous Blood Culture - Preliminary No growth after 24 hours. Assessment and Plan (1) Elevated troponin: Status: Acute (2) Pneumonia: Status: Acute Assessment and Plan: 1. Probable pneumonia. Started on antibiotics but turned out that he has viral pneumonia with Enterovius on respiratory panel. Covid negative. He has no fever. Initial WBC was nicolas at 12 but now normal at 9. No further antibiotics needed. 2. Chest pain with mild increase in tropnon I. Cardiology saw him with the following assessment: Cardiac studies reviewed. Cardiac catheterization was noted from 2019. 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 Nonobstructive disease elsewhere. Left main was normal. Echocardiogram from 2019 from [facility] shows LVEF 30-35%. Moderate global h ypokinesis. 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 His current troponin elevation at 207 and 212. Repeat echocardiogram with LVEF 30-35% and similar to prior. Could be related to cocaine use. This could also be chronic myocardial injury. Does not appear to be acute coronary syndrome. Would optimize his medical therapy and refrain from cocaine use. No further work up at this time. 3. Diabetes/hyperglycemia: Lantus 40 at bedtime and Sliding Scle 4. SI/ mood:continue sertraline. Inpatient Psych for further tretment 5. cocaine abuse : Advise to stop using.
--- NOTE | 2020-03-07 14:22 | MHC.CM.PN ---
Patient will be dc to [facility].
--- NOTE | 2020-03-07 14:27 | PM.DS ---
DS: Providers Provider Date of Service: 03/07/20 Date of admission: 03/05/20 18:39 Primary care physician: Yony Butts MD Consults: 03/05/20 18:39 Consult for Sitter Routine Reason for consultation: SI Has provider been notified: No Consult to Cardiology Routine Consulting Provider: Timothy Zapata Reason for consultation: h/o CAD/EF 35%; elevated trop Has provider been notified: No 03/06/20 11:52 Consult to Psychiatry Routine Consulting Provider: Margaux Garcia Reason for consultation: cocaine abuse Has provider been notified: No 03/07/20 10:32 Consult to Crisis Stat Reason for consultation: Suicidal and homicidal DS: Diagnosis Discharge Diagnosis (1) Elevated troponin: Status: Acute (2) Pneumonia: Status: Acute (3) Atherosclerotic cardiovascular disease: Status: Acute (4) Acute depression: Status: Acute (5) CAD (coronary artery disease): Status: Inactive DS: Medications Discharge Medications Home Medications: Home Medications Medication Instructions Recorded Confirmed Levemir U-100 Insulin 25 unit SUBCUT BID 03/05/20 03/05/20 Vivitrol 4 ml IM Q4W 03/05/20 03/05/20 albuterol sulfate [Ventolin HFA] 2 puff INHALATION Q4H PRN 03/05/20 03/05/20 atorvastatin 80 mg PO BEDTIME 03/05/20 03/05/20 carvedilol 3.125 mg PO BID 03/05/20 03/05/20 clopidogrel 75 mg PO DAILY 03/05/20 03/05/20 insulin aspart U-100 [Novolog SUBCUT 03/05/20 U-100 Insulin aspart] metformin 1,000 mg PO BID 03/05/20 03/05/20 sertraline 50 mg PO DAILY 03/05/20 03/05/20 valsartan 80 mg PO DAILY 03/05/20 03/05/20 DS: Summary Hospital Course Hospital Course: 1. Probable pneumonia. Started on antibiotics but turned out that he has viral pneumonia with Enterovius on respiratory panel. Covid negative. He has no fever. Initial WBC was nicolas at 12 but now normal at 9. No further antibiotics needed. 2. Chest pain with mild increase in tropnon I. Cardiology saw him with the following assessment: Cardiac studies reviewed. Cardiac catheterization was noted from 2019. 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 Nonobstructive disease elsewhere. Left main was normal. Echocardiogram from 2019 from [facility] shows LVEF 30-35%. Moderate global hypokinesis. 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 His current troponin elevation at 207 and 212. Repeat echocardiogram with LVEF 30-35% and similar to prior. Could be related to cocaine use. This could also be chronic myocardial injury. Does not appear to be acute coronary syndrome. Would optimize his medical therapy and refrain from cocaine use. No further work up at this time. 3. Diabetes/hyperglycemia: Lantus 40 at bedtime and Sliding Scle 4. SI/ mood:continue sertraline. Inpatient Psych for further tretment 5. cocaine abuse : Advise to stop using. Time Spent with Patient Time attestation: Total time spent providing and/or coordinating discharge services: Discharge coordination time: Greater than 30 minutes Physical Exam Vital Signs: Vital Signs: Last Vital Signs Temp 97.5 F 03/07/20 10:57 Pulse 73 03/07/20 10:57 Resp 20 03/07/20 10:57 BP 105/69 03/07/20 10:57 Pulse Ox 94 03/07/20 10:57 Body Mass Index 32.0 Const: General: No cooperative Orientation/consciousness: patient oriented x3 Resp: Effort & Inspection: normal respiratory effort Auscultation: clear to auscultation bilaterally Cardio: Rhythm: regular rhythm Heart sounds: S1 normal heart sound present and S2 normal heart sound present GI: Inspection: Yes normal to inspection Skin: General skin exam: no rashes or lesions noted Neuro: General: patient oriented x3 Psych: Insight: Poor insight present (Psych) Judgement: Poor judgement present (Psych) and Other judgement findings present (Psych) DS: Data Data Completed and Pending Labs on day of discharge: Laboratory Tests 03/05/20 03/05/20 03/05/20 11:53 12:21 12:22 WBC 12.5 H RBC 4.52 L Hgb 13.2 L Hct 39.0 L MCV 86.3 MCH 29.2 MCHC 33.8 RDW 12.9 Plt Count 329 MPV 10.7 Immature Gran % (Auto) 0.4 Neut % (Auto) 74.9 H Lymph % (Auto) 17.3 L [place] % (Auto) 6.3 Eos % (Auto) 0.9 Baso % (Auto) 0.2 Lymph # (Auto) 2.2 [place] # (Auto) 0.8 Eos # (Auto) 0.1 Baso # (Auto) 0.0 Abs Immat Gran (auto) 0.05 H Absolute Neuts (auto) 9.4 H Absolute Nucleated RBC 0.000 Nucleated RBC % (auto) 0.0 PT Cancelled INR Cancelled APTT Cancelled D-Dimer 274 Hold Blue Top SEE NOTE Sodium Potassium Chloride Carbon Dioxide Anion Gap BUN Creatinine Estim Creat Clear Calc Estimated GFR POC Glucose 389 H* Random Glucose Lactic Acid Calcium Magnesium Total Bilirubin Direct Bilirubin AST ALT Alkaline Phosphatase Total Creatine Kinase Troponin I High Sens B-Natriuretic Peptide Total Protein Albumin Lipase Procalcitonin Urine Color Urine Appearance Urine pH Ur Specific [place] Urine Protein Urine Glucose (UA) Urine Ketones Urine Blood Urine Nitrite Ur Leukocyte Esterase Urine RBC Urine WBC Ur Squamous Epith Cells Urine Bacteria Urine Yeast Urine Opiates Screen Ur Barbiturates Screen Ur Phencyclidine Scrn Ur Amphetamines Screen U Benzodiazepines Scrn Urine Cocaine Screen U Marijuana (THC) Screen Respiratory Panel [place] Adenovirus (Rapid PCR) B.pert (TEM-PCR) B.parapertussis DNA PCR C. pneumoniae DNA (PCR) Coronavirus (PCR) Coronavirus OC43 (PCR) Coronavirus HKU1 (PCR) Coronavirus 229E (PCR) Coronavirus NL63 (PCR) Human Metapneumovir PCR Influenza A (RT-PCR) Influenza Type A (PCR) Influenza B (RT-PCR) Influenza Type B (PCR) M. pneumoniae (PCR) Parainfluenza 1 (PCR) Parainfluenza 2 (PCR) Parainfluenza 3 (PCR) Parainfluenza 4 (PCR) RSV (PCR) RSV RNA Qual (PCR) Entero/Rhino (PCR) SARS-CoV-2 RNA (RT-PCR) 03/05/20 03/05/20 03/05/20 12:22 12:22 12:22 WBC RBC Hgb Hct MCV MCH MCHC RDW Plt Count MPV Immature Gran % (Auto) Neut % (Auto) Lymph % (Auto) [place] % (Auto) Eos % (Auto) Baso % (Auto) Lymph # (Auto) [place] # (Auto) Eos # (Auto) Baso # (Auto) Abs Immat Gran (auto) Absolute Neuts (auto) Absolute Nucleated RBC Nucleated RBC % (auto) PT INR APTT D-Dimer Hold Blue Top Sodium 135 Potassium 4.8 Chloride 98 Carbon Dioxide 26 Anion Gap 16 BUN 24 H Creatinine 1.05 Estim Creat Clear Calc 120.6 Estimated GFR > 60 POC Glucose Random Glucose 392 H* Lactic Acid Calcium 9.3 Magnesium 1.9 Total Bilirubin 0.5 Direct Bilirubin 0.2 AST 12 ALT 17 Alkaline Phosphatase 132 H Total Creatine Kinase 83 Troponin I High Sens 207.9 H B-Natriuretic Peptide 481 H Total Protein 6.8 Albumin 3.7 Lipase 36 Procalcitonin Urine Color Urine Appearance Urine pH Ur Specific [place] Urine Protein Urine Glucose (UA) Urine Ketones Urine Blood Urine Nitrite Ur Leukocyte Esterase Urine RBC Urine WBC Ur Squamous Epith Cells Urine Bacteria Urine Yeast Urine Opiates Screen Ur Barbiturates Screen Ur Phencyclidine Scrn Ur Amphetamines Screen U Benzodiazepines Scrn Urine Cocaine Screen U Marijuana (THC) Screen Respiratory Panel [place] Adenovirus (Rapid PCR) B.pert (TEM-PCR) B.parapertussis DNA PCR C. pneumoniae DNA (PCR) Coronavirus (PCR) NEGATIVE Coronavirus OC43 (PCR) Coronavirus HKU1 (PCR) Coronavirus 229E (PCR) Coronavirus NL63 (PCR) Human Metapneumovir PCR Influenza A (RT-PCR) Influenza Type A (PCR) NEGATIVE Influenza B (RT-PCR) Influenza Type B (PCR) NEGATIVE M. pneumoniae (PCR) Parainfluenza 1 (PCR) Parainfluenza 2 (PCR) Parainfluenza 3 (PCR) Parainfluenza 4 (PCR) RSV (PCR) RSV RNA Qual (PCR) NEGATIVE Entero/Rhino (PCR) SARS-CoV-2 RNA (RT-PCR) 03/05/20 03/05/20 03/05/20 12:22 15:56 17:13 WBC RBC Hgb Hct MCV MCH MCHC RDW Plt Count MPV Immature Gran % (Auto) Neut % (Auto) Lymph % (Auto) [place] % (Auto) Eos % (Auto) Baso % (Auto) Lymph # (Auto) [place] # (Auto) Eos # (Auto) Baso # (Auto) Abs Immat Gran (auto) Absolute Neuts (auto) Absolute Nucleated RBC Nucleated RBC % (auto) PT INR APTT D-Dimer Hold Blue Top Sodium Potassium Chloride Carbon Dioxide Anion Gap BUN Creatinine Estim Creat Clear Calc Estimated GFR POC Glucose 349 H Random Glucose Lactic Acid Calcium Magnesium Total Bilirubin Direct Bilirubin AST ALT Alkaline Phosphatase Total Creatine Kinase Troponin I High Sens 212.8 H B-Natriuretic Peptide Total Protein Albumin Lipase Procalcitonin 0.04 Urine Color Urine Appearance Urine pH Ur Specific [place] Urine Protein Urine Glucose (UA) Urine Ketones Urine Blood Urine Nitrite Ur Leukocyte Esterase Urine RBC Urine WBC Ur Squamous Epith Cells Urine Bacteria Urine Yeast Urine Opiates Screen Ur Barbiturates Screen Ur Phencyclidine Scrn Ur Amphetamines Screen U Benzodiazepines Scrn Urine Cocaine Screen U Marijuana (THC) Screen Respiratory Panel [place] Adenovirus (Rapid PCR) B.pert (TEM-PCR) B.parapertussis DNA PCR C. pneumoniae DNA (PCR) Coronavirus (PCR) Coronavirus OC43 (PCR) Coronavirus HKU1 (PCR) Coronavirus 229E (PCR) Coronavirus NL63 (PCR) Human Metapneumovir PCR Influenza A (RT-PCR) Influenza Type A (PCR) Influenza B (RT-PCR) Influenza Type B (PCR) M. pneumoniae (PCR) Parainfluenza 1 (PCR) Parainfluenza 2 (PCR) Parainfluenza 3 (PCR) Parainfluenza 4 (PCR) RSV (PCR) RSV RNA Qual (PCR) Entero/Rhino (PCR) SARS-CoV-2 RNA (RT-PCR) 03/05/20 03/05/20 03/05/20 18:07 18:07 19:36 WBC RBC Hgb Hct MCV MCH MCHC RDW Plt Count MPV Immature Gran % (Auto) Neut % (Auto) Lymph % (Auto) [place] % (Auto) Eos % (Auto) Baso % (Auto) Lymph # (Auto) [place] # (Auto) Eos # (Auto) Baso # (Auto) Abs Immat Gran (auto) Absolute Neuts (auto) Absolute Nucleated RBC Nucleated RBC % (auto) PT INR APTT D-Dimer Hold Blue Top Sodium Potassium Chloride Carbon Dioxide Anion Gap BUN Creatinine Estim Creat Clear Calc Estimated GFR POC Glucose Random Glucose Lactic Acid 1.5 Calcium Magnesium Total Bilirubin Direct Bilirubin AST ALT Alkaline Phosphatase Total Creatine Kinase Troponin I High Sens B-Natriuretic Peptide Total Protein Albumin Lipase Procalcitonin Urine Color YELLOW Urine Appearance CLEAR Urine pH 5.5 Ur Specific [place] 1.015 Urine Protein 2+ H Urine Glucose (UA) >=1000 H Urine Ketones NEG Urine Blood TRACE Urine Nitrite NEG Ur Leukocyte Esterase NEG Urine RBC 1-4 Urine WBC 5-9 H Ur Squamous Epith Cells 1+ Urine Bacteria TRACE Urine Yeast 2+ Urine Opiates Screen Not Detected Ur Barbiturates Screen Not Detected Ur Phencyclidine Scrn Not Detected Ur Amphetamines Screen Not Detected U Benzodiazepines Scrn Not Detected Urine Cocaine Screen POSITIVE H U Marijuana (THC) Screen Not Detected Respiratory Panel [place] Adenovirus (Rapid PCR) B.pert (TEM-PCR) B.parapertussis DNA PCR C. pneumoniae DNA (PCR) Coronavirus (PCR) Coronavirus OC43 (PCR) Coronavirus HKU1 (PCR) Coronavirus 229E (PCR) Coronavirus NL63 (PCR) Human Metapneumovir PCR Influenza A (RT-PCR) Influenza Type A (PCR) Influenza B (RT-PCR) Influenza Type B (PCR) M. pneumoniae (PCR) Parainfluenza 1 (PCR) Parainfluenza 2 (PCR) Parainfluenza 3 (PCR) Parainfluenza 4 (PCR) RSV (PCR) RSV RNA Qual (PCR) Entero/Rhino (PCR) SARS-CoV-2 RNA (RT-PCR) 03/05/20 03/05/20 03/05/20 19:37 19:44 21:49 WBC RBC Hgb Hct MCV MCH MCHC RDW Plt Count MPV Immature Gran % (Auto) Neut % (Auto) Lymph % (Auto) [place] % (Auto) Eos % (Auto) Baso % (Auto) Lymph # (Auto) [place] # (Auto) Eos # (Auto) Baso # (Auto) Abs Immat Gran (auto) Absolute Neuts (auto) Absolute Nucleated RBC Nucleated RBC % (auto) PT 12.4 INR 1.0 APTT 32.2 D-Dimer Hold Blue Top Sodium Potassium Chloride Carbon Dioxide Anion Gap BUN Creatinine Estim Creat Clear Calc Estimated GFR POC Glucose 354 H* 363 H* Random Glucose Lactic Acid Calcium Magnesium Total Bilirubin Direct Bilirubin AST ALT Alkaline Phosphatase Total Creatine Kinase Troponin I High Sens B-Natriuretic Peptide Total Protein Albumin Lipase Procalcitonin Urine Color Urine Appearance Urine pH Ur Specific [place] Urine Protein Urine Glucose (UA) Urine Ketones Urine Blood Urine Nitrite Ur Leukocyte Esterase Urine RBC Urine WBC Ur Squamous Epith Cells Urine Bacteria Urine Yeast Urine Opiates Screen Ur Barbiturates Screen Ur Phencyclidine Scrn Ur Amphetamines Screen U Benzodiazepines Scrn Urine Cocaine Screen U Marijuana (THC) Screen Respiratory Panel [place] Adenovirus (Rapid PCR) B.pert (TEM-PCR) B.parapertussis DNA PCR C. pneumoniae DNA (PCR) Coronavirus (PCR) Coronavirus OC43 (PCR) Coronavirus HKU1 (PCR) Coronavirus 229E (PCR) Coronavirus NL63 (PCR) Human Metapneumovir PCR Influenza A (RT-PCR) Influenza Type A (PCR) Influenza B (RT-PCR) Influenza Type B (PCR) M. pneumoniae (PCR) Parainfluenza 1 (PCR) Parainfluenza 2 (PCR) Parainfluenza 3 (PCR) Parainfluenza 4 (PCR) RSV (PCR) RSV RNA Qual (PCR) Entero/Rhino (PCR) SARS-CoV-2 RNA (RT-PCR) 03/06/20 03/06/20 03/06/20 01:12 05:29 05:29 WBC 9.1 RBC 3.91 L Hgb 11.3 L Hct 34.2 L MCV 87.5 MCH 28.9 MCHC 33.0 RDW 13.0 Plt Count 285 MPV 10.9 Immature Gran % (Auto) 0.2 Neut % (Auto) 57.5 Lymph % (Auto) 32.3 [place] % (Auto) 7.4 Eos % (Auto) 2.2 Baso % (Auto) 0.4 Lymph # (Auto) 3.0 [place] # (Auto) 0.7 Eos # (Auto) 0.2 Baso # (Auto) 0.0 Abs Immat Gran (auto) 0.02 Absolute Neuts (auto) 5.3 Absolute Nucleated RBC 0.000 Nucleated RBC % (auto) 0.0 PT INR APTT D-Dimer Hold Blue Top Sodium 134 L Potassium 4.3 Chloride 102 Carbon Dioxide 22 Anion Gap 14 BUN 27 H Creatinine 1.02 Estim Creat Clear Calc 124.1 Estimated GFR > 60 POC Glucose 285 H Random Glucose 269 H Lactic Acid Calcium 8.3 L D Magnesium Total Bilirubin Direct Bilirubin AST ALT Alkaline Phosphatase Total Creatine Kinase Troponin I High Sens B-Natriuretic Peptide Total Protein Albumin Lipase Procalcitonin Urine Color Urine Appearance Urine pH Ur Specific [place] Urine Protein Urine Glucose (UA) Urine Ketones Urine Blood Urine Nitrite Ur Leukocyte Esterase Urine RBC Urine WBC Ur Squamous Epith Cells Urine Bacteria Urine Yeast Urine Opiates Screen Ur Barbiturates Screen Ur Phencyclidine Scrn Ur Amphetamines Screen U Benzodiazepines Scrn Urine Cocaine Screen U Marijuana (THC) Screen Respiratory Panel [place] Adenovirus (Rapid PCR) B.pert (TEM-PCR) B.parapertussis DNA PCR C. pneumoniae DNA (PCR) Coronavirus (PCR) Coronavirus OC43 (PCR) Coronavirus HKU1 (PCR) Coronavirus 229E (PCR) Coronavirus NL63 (PCR) Human Metapneumovir PCR Influenza A (RT-PCR) Influenza Type A (PCR) Influenza B (RT-PCR) Influenza Type B (PCR) M. pneumoniae (PCR) Parainfluenza 1 (PCR) Parainfluenza 2 (PCR) Parainfluenza 3 (PCR) Parainfluenza 4 (PCR) RSV (PCR) RSV RNA Qual (PCR) Entero/Rhino (PCR) SARS-CoV-2 RNA (RT-PCR) 03/06/20 03/06/20 03/06/20 07:18 11:04 11:12 WBC RBC Hgb Hct MCV MCH MCHC RDW Plt Count MPV Immature Gran % (Auto) Neut % (Auto) Lymph % (Auto) [place] % (Auto) Eos % (Auto) Baso % (Auto) Lymph # (Auto) [place] # (Auto) Eos # (Auto) Baso # (Auto) Abs Immat Gran (auto) Absolute Neuts (auto) Absolute Nucleated RBC Nucleated RBC % (auto) PT INR APTT D-Dimer Hold Blue Top Sodium Potassium Chloride Carbon Dioxide Anion Gap BUN Creatinine Estim Creat Clear Calc Estimated GFR POC Glucose 281 H 293 H Random Glucose Lactic Acid Calcium Magnesium Total Bilirubin Direct Bilirubin AST ALT Alkaline Phosphatase Total Creatine Kinase Troponin I High Sens B-Natriuretic Peptide Total Protein Albumin Lipase Procalcitonin Urine Color Urine Appearance Urine pH Ur Specific [place] Urine Protein Urine Glucose (UA) Urine Ketones Urine Blood Urine Nitrite Ur Leukocyte Esterase Urine RBC Urine WBC Ur Squamous Epith Cells Urine Bacteria Urine Yeast Urine Opiates Screen Ur Barbiturates Screen Ur Phencyclidine Scrn Ur Amphetamines Screen U Benzodiazepines Scrn Urine Cocaine Screen U Marijuana (THC) Screen Respiratory Panel [place] See Note Adenovirus (Rapid PCR) Not Detected B.pert (TEM-PCR) Not Detected B.parapertussis DNA PCR Not Detected C. pneumoniae DNA (PCR) Not Detected Coronavirus (PCR) Coronavirus OC43 (PCR) Not Detected Coronavirus HKU1 (PCR) Not Detected Coronavirus 229E (PCR) Not Detected Coronavirus NL63 (PCR) Not Detected Human Metapneumovir PCR Not Detected Influenza A (RT-PCR) Not Detected Influenza Type A (PCR) Influenza B (RT-PCR) Not Detected Influenza Type B (PCR) M. pneumoniae (PCR) Not Detected Parainfluenza 1 (PCR) Not Detected Parainfluenza 2 (PCR) Not Detected Parainfluenza 3 (PCR) Not Detected Parainfluenza 4 (PCR) Not Detected RSV (PCR) Not Detected RSV RNA Qual (PCR) Entero/Rhino (PCR) Detected A SARS-CoV-2 RNA (RT-PCR) Not Detected 03/06/20 03/06/20 03/07/20 16:24 20:28 05:40 WBC RBC Hgb Hct MCV MCH MCHC RDW Plt Count MPV Immature Gran % (Auto) Neut % (Auto) Lymph % (Auto) [place] % (Auto) Eos % (Auto) Baso % (Auto) Lymph # (Auto) [place] # (Auto) Eos # (Auto) Baso # (Auto) Abs Immat Gran (auto) Absolute Neuts (auto) Absolute Nucleated RBC Nucleated RBC % (auto) PT INR APTT D-Dimer Hold Blue Top Sodium 135 Potassium 4.5 Chloride 103 Carbon Dioxide 23 Anion Gap 14 BUN 29 H Creatinine 1.02 Estim Creat Clear Calc 124.1 Estimated GFR > 60 POC Glucose 350 H* 333 H Random Glucose 273 H Lactic Acid Calcium 8.1 L Magnesium Total Bilirubin Direct Bilirubin AST ALT Alkaline Phosphatase Total Creatine Kinase Troponin I High Sens B-Natriuretic Peptide Total Protein Albumin Lipase Procalcitonin Urine Color Urine Appearance Urine pH Ur Specific [place] Urine Protein Urine Glucose (UA) Urine Ketones Urine Blood Urine Nitrite Ur Leukocyte Esterase Urine RBC Urine WBC Ur Squamous Epith Cells Urine Bacteria Urine Yeast Urine Opiates Screen Ur Barbiturates Screen Ur Phencyclidine Scrn Ur Amphetamines Screen U Benzodiazepines Scrn Urine Cocaine Screen U Marijuana (THC) Screen Respiratory Panel [place] Adenovirus (Rapid PCR) B.pert (TEM-PCR) B.parapertussis DNA PCR C. pneumoniae DNA (PCR) Coronavirus (PCR) Coronavirus OC43 (PCR) Coronavirus HKU1 (PCR) Coronavirus 229E (PCR) Coronavirus NL63 (PCR) Human Metapneumovir PCR Influenza A (RT-PCR) Influenza Type A (PCR) Influenza B (RT-PCR) Influenza Type B (PCR) M. pneumoniae (PCR) Parainfluenza 1 (PCR) Parainfluenza 2 (PCR) Parainfluenza 3 (PCR) Parainfluenza 4 (PCR) RSV (PCR) RSV RNA Qual (PCR) Entero/Rhino (PCR) SARS-CoV-2 RNA (RT-PCR) 03/07/20 03/07/20 07:07 10:55 WBC RBC Hgb Hct MCV MCH MCHC RDW Plt Count MPV Immature Gran % (Auto) Neut % (Auto) Lymph % (Auto) [place] % (Auto) Eos % (Auto) Baso % (Auto) Lymph # (Auto) [place] # (Auto) Eos # (Auto) Baso # (Auto) Abs Immat Gran (auto) Absolute Neuts (auto) Absolute Nucleated RBC Nucleated RBC % (auto) PT INR APTT D-Dimer Hold Blue Top Sodium Potassium Chloride Carbon Dioxide Anion Gap BUN Creatinine Estim Creat Clear Calc Estimated GFR POC Glucose 264 H 260 H Random Glucose Lactic Acid Calcium Magnesium Total Bilirubin Direct Bilirubin AST ALT Alkaline Phosphatase Total Creatine Kinase Troponin I High Sens B-Natriuretic Peptide Total Protein Albumin Lipase Procalcitonin Urine Color Urine Appearance Urine pH Ur Specific [place] Urine Protein Urine Glucose (UA) Urine Ketones Urine Blood Urine Nitrite Ur Leukocyte Esterase Urine RBC Urine WBC Ur Squamous Epith Cells Urine Bacteria Urine Yeast Urine Opiates Screen Ur Barbiturates Screen Ur Phencyclidine Scrn Ur Amphetamines Screen U Benzodiazepines Scrn Urine Cocaine Screen U Marijuana (THC) Screen Respiratory Panel [place] Adenovirus (Rapid PCR) B.pert (TEM-PCR) B.parapertussis DNA PCR C. pneumoniae DNA (PCR) Coronavirus (PCR) Coronavirus OC43 (PCR) Coronavirus HKU1 (PCR) Coronavirus 229E (PCR) Coronavirus NL63 (PCR) Human Metapneumovir PCR Influenza A (RT-PCR) Influenza Type A (PCR) Influenza B (RT-PCR) Influenza Type B (PCR) M. pneumoniae (PCR) Parainfluenza 1 (PCR) Parainfluenza 2 (PCR) Parainfluenza 3 (PCR) Parainfluenza 4 (PCR) RSV (PCR) RSV RNA Qual (PCR) Entero/Rhino (PCR) SARS-CoV-2 RNA (RT-PCR) Preliminary micro results at discharge 03/05/20 19:37 Blood Culture - Preliminary Blood - Venous No growth after 24 hours. 03/05/20 19:37 Blood Culture - Preliminary Blood - Venous No growth after 24 hours. Discharge Plan Discharge Anticipated Discharge Date/Time: 03/07/20 14:03 Patient Disposition: Xfer Psychiatric Hosp Referrals: [facility] [Other] Name,MD Yony [Primary Care Provider] - Discharge Medications: Continued metformin 500 mg tablet 1,000 mg PO BID RF: 0 atorvastatin 80 mg tablet 80 mg PO BEDTIME RF: 0 valsartan 80 mg tablet 80 mg PO DAILY RF: 0 clopidogrel 75 mg tablet 75 mg PO DAILY RF: 0 carvedilol 3.125 mg tablet 3.125 mg PO BID RF: 0 insulin aspart U-100 [Novolog U-100 Insulin aspart] 100 unit/mL solution subcut RF: 0 albuterol sulfate [Ventolin HFA] 90 mcg/actuation HFA aerosol inhaler 2 puff inhalation Q4H PRN (Reason: Shortness Of Breath) RF: 0 sertraline 50 mg tablet 50 mg PO DAILY RF: 0 Levemir U-100 Insulin 100 unit/mL solution 25 unit subcut BID RF: 0 Vivitrol 380 mg suspension,extended rel recon 4 ml IM Q4W RF: 0 Discharge Orders: Discharge Order (Routine); Ordered 03/07/20 Ordered By: Adrián Lares Diet: advance to usual diet and diabetic diet Activity on Discharge: As tolerated Stand Alone Forms: Patient Portal Discharge page Care Plan Goals: Treatment for depression Health Concerns: Depression with with thought to harm others Plan of Treatment: To inpatient Psychiatric treatment facility
[2020-03-07 15:26] VITALS: BP 117/59; PULSE 86; RESP 18; TEMP 36.6; O2SAT 95
[2020-03-07 17:24] LABS: Glucose, Whole Blood 353 mg/dL (60-115)
== END 2020-03-07 16:59 | DRG 194 ==
LOC: HO.ED 17:31 → HO.EDOVER 19:04 → HO.IMC 23:55
PROVIDERS: Emergency Medicine; Physician Assistant Medical; Admitting Provider Internal Medicine; Emergency Provider Internal Medicine; PCP Internal Medicine Geriatric Medicine; Visit Provider Internal Medicine
DX: J12.89 Other viral pneumonia (principal); R45.851 Suicidal ideations; I25.10 Atherosclerotic heart disease of native coronary artery without angina pectoris; F32.9 Major depressive disorder, single episode, unspecified; Z86.73 Personal history of transient ischemic attack (TIA), and cerebral infarction without residual deficits; Z89.512 Acquired absence of left leg below knee; E11.40 Type 2 diabetes mellitus with diabetic neuropathy, unspecified; E11.65 Type 2 diabetes mellitus with hyperglycemia; B97.10 Unspecified enterovirus as the cause of diseases classified elsewhere; B97.30 Unspecified retrovirus as the cause of diseases classified elsewhere; R79.89 Other specified abnormal findings of blood chemistry; F17.210 Nicotine dependence, cigarettes, uncomplicated; Z71.6 Tobacco abuse counseling; F14.10 Cocaine abuse, uncomplicated; Z91.14 Patient's other noncompliance with medication regimen; Z20.822 Contact with and (suspected) exposure to COVID-19; Z88.0 Allergy status to penicillin; Z88.5 Allergy status to narcotic agent; Z79.4 Long term (current) use of insulin; Z79.02 Long term (current) use of antithrombotics/antiplatelets; Z79.899 Other long term (current) drug therapy
CPT/HCPCS: 0241U; 36415; 71250; 74176; 80048; 80076; 80307; 81001; 82550; 82947; 83605; 83690; 83735; 83880; 84145; 84484; 85025; 85379; 85610; 85730; 87040; 87086; 87633; 93005; 93306; 96361; 96374; 96375; 99285; J0456; J0696; J1650; J2060; J2405; Q9957

== ENCOUNTER 2020-03-07 17:02 | Inpatient (IN) | payer MEDICARE, OTHER, SELFPAY ==
[2020-03-07 18:00] VITALS: BP 130/68; PULSE 86; TEMP 37
[2020-03-07 19:55] VITALS: BMI 34.5
[2020-03-07 20:13] LABS: Glucose, Whole Blood 330 mg/dL (60-115)
[2020-03-07] MEDS: Atorvastatin Calcium 80 MG TABLET PO ×2 (20:24→20:30)
[2020-03-07] MEDS: Insulin Glargine,Hum.rec.anlog 100 UNIT/ML 10 ML VIAL 40 UNIT SUBCUT (20:25)
[2020-03-07] MEDS: Insulin Lispro 100 UNIT/ML 3 ML VIAL SUBCUT (20:25)
[2020-03-07 21:07] VITALS: BP 130/68; PULSE 86
[2020-03-07] MEDS: carvediloL 3.125 MG TABLET PO (21:07)
[2020-03-07] MEDS: LORazepam 0.5 MG TABLET PO (22:30)
--- NOTE | 2020-03-07 23:15 | PC.ADMIT ---
Kyle is a 49 year old male who presents to from [facility] ED at approx 1630 on a cv status. Pt is covid -. Utox + for cocaine. Pt was assessed by Aida Blanton in his home and found to meet inpatient level of care. Pt was irritable an agitated during admit. Pt denied SI/AH/VH and denied having any pain during admit. Pt has an assisting device to help him with his gait. Pt has a prosthesis that he needs to move about more independently. 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 Pt is on a diabetic diet and has ongoing family conflict with family. Pt is diagnosed with depressive disorder.Pt has three small wounds on his legs that he reported from blood thinner medications . Pt will have a wound child and family counselor follow up with him to assess his wound. Pt had a VNA previously, but not currently. Pt mentioned that he does not have a therapist. Dr Desmond Davies called for orders and notified of admission. Pt is on 15 mins check. Pt had clear thoughts. Stable mood. Start treatment plan and monitor for safety.
[2020-03-08] MEDS: hydrOXYzine HCL 25 MG TABLET PO (03:00)
[2020-03-08] MEDS: Acetaminophen 325 MG TABLET 650 MG PO (03:21)
[2020-03-08 05:59] LABS: Glucose, Whole Blood 240 mg/dL (60-115)
[2020-03-08 06:00] VITALS: BP 98/73; PULSE 68; RESP 18; TEMP 36; O2SAT 96
[2020-03-08] MEDS: carvediloL 3.125 MG TABLET PO ×2 (08:43→21:10)
[2020-03-08] MEDS: Sertraline HCL 50 MG TABLET PO (08:43)
[2020-03-08] MEDS: metFORMIN HCl 1,000 MG TABLET 1000 MG PO (08:43)
[2020-03-08] MEDS: Clopidogrel Bisulfate 75 MG TABLET PO (08:43)
[2020-03-08] MEDS: Valsartan 80 MG TABLET PO (08:43)
[2020-03-08] MEDS: polyethylene glycoL 3350 17 GM POWD.PACK PO (08:43)
[2020-03-08] MEDS: Insulin Lispro 100 UNIT/ML 3 ML VIAL SUBCUT ×4 (08:44→21:09)
[2020-03-08 11:52] LABS: Glucose, Whole Blood 338 mg/dL (60-115)
[2020-03-08] MEDS: LORazepam 0.5 MG TABLET PO (13:17)
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
[2020-03-08 17:05] LABS: Glucose, Whole Blood 281 mg/dL (60-115)
[2020-03-08 18:00] VITALS: BP 130/83; PULSE 83; TEMP 36.9
[2020-03-08 21:03] LABS: Glucose, Whole Blood 370 mg/dL (60-115)
[2020-03-08] MEDS: Insulin Glargine,Hum.rec.anlog 100 UNIT/ML 10 ML VIAL 40 UNIT SUBCUT (21:09)
[2020-03-08 21:10] VITALS: BP 130/83; PULSE 83
[2020-03-08] MEDS: guaiFENesin LA 600 MG TAB.ER.12H PO (21:10)
[2020-03-08] MEDS: Mirtazapine 7.5 MG TABLET PO (21:10)
[2020-03-09 06:38] LABS: Glucose, Whole Blood 239 mg/dL (60-115)
[2020-03-09] MEDS: guaiFENesin 100 MG/5 ML LIQUID PO (06:38)
[2020-03-09 06:40] VITALS: BP 138/83; PULSE 79; RESP 18; TEMP 36.3; O2SAT 99
[2020-03-09] MEDS: metFORMIN HCl 1,000 MG TABLET 1000 MG PO ×2 (08:46→20:49)
[2020-03-09] MEDS: Insulin Lispro 100 UNIT/ML 3 ML VIAL SUBCUT ×4 (08:46→20:48)
[2020-03-09] MEDS: Clopidogrel Bisulfate 75 MG TABLET PO (08:46)
[2020-03-09] MEDS: guaiFENesin LA 600 MG TAB.ER.12H PO ×2 (08:46→20:48)
[2020-03-09] MEDS: Valsartan 80 MG TABLET PO (08:46)
[2020-03-09] MEDS: Sertraline HCL 25 MG TABLET 75 MG PO (08:46)
[2020-03-09] MEDS: carvediloL 3.125 MG TABLET PO ×2 (08:46→20:48)
[2020-03-09 11:57] LABS: Glucose, Whole Blood 171 mg/dL (60-115)
[2020-03-09] MEDS: hydrOXYzine HCL 25 MG TABLET PO (13:03)
[2020-03-09] MEDS: LORazepam 0.5 MG TABLET PO (13:03)
--- NOTE | 2020-03-09 13:48 | P.PNPSI_ITS ---
Subjective Subjective Date of Service: 03/09/20 Reason For Visit: depression Subjective Notes: Conditional Voluntary Interim History: Pt irritable this morning. He reports he spoke with his mother yesterday, he is not welcome back to her house. Pt states he did not take medications this morning because I don't care anymore, I can now. However, he requested assistance to shave and take a bath. He denied any plan or intent to hurt himself. however, he rejects support from staff at times. Medication Compliance: Intermittent Side effects from medications: No Attending Groups: Intermittent Mental Status Exam Mental Status Exam Narrative: Appearance: appears much older than stated age, in wheelchair, poor hygiene, in NAD Behavior: cooperative Psychomotor: no agitation or retardation noted Speech: clear, normal rate/rhythm/volume, spontaneous Mood: depressed Affect: congruent, blunted, irritable at times AH/VH: none Delusions: none Insight/judgment: poor x 2. Memory/cog: alert, oriented x 3. grossly intact to conversational testing. Diagnostics Vital Signs (24Hr): Vital Signs - 24 hr 03/08/20 18:00 03/08/20 21:10 03/09/20 06:40 Temperature 98.4 F 97.4 F Pulse Rate 83 83 79 Respiratory Rate 18 Blood Pressure 130/83 130/83 138/83 Pulse Oximetry 99 Body Mass Index 34.5 Labs Labs: Laboratory Results - last 48 hr 03/07/20 03/08/20 03/08/20 20:08 05:45 11:48 POC Glucose 330 H 240 H 338 H 03/08/20 03/08/20 03/09/20 17:00 20:59 06:26 POC Glucose 281 H 370 H* 239 H 03/09/20 11:53 POC Glucose 171 H Medications Medications Current Medications Generic Name Dose Route Start Last Admin Trade Name Freq PRN Reason Stop Dose Admin Acetaminophen 650 mg 03/07/20 19:22 03/08/20 03:21 Acetaminophen 325 Mg Tablet PO 650 mg Q6H PRN Administration Headache/Pain Mild Scale (1-3) Al Hydroxide/Mg Hydroxide 30 ml 03/07/20 19:22 Magnesium Hydrox/Alum Hydrox 30 Ml Oral.Susp PO Q6H PRN Heartburn/Nausea Albuterol Sulfate 2 puff 03/07/20 19:22 Albuterol Sulfate 90 Mcg 8 Gm Inhaler INHALE Q4H PRN Shortness Of Breath Atorvastatin Calcium 80 mg 03/07/20 21:00 03/07/20 20:30 Atorvastatin Calcium 80 Mg Tablet PO 80 mg BEDTIME [facility] Administration Benzocaine 1 lozenge 03/08/20 19:12 Throat Lozenge, Medicated Lozenge MUCOUS MEM Q2H PRN Sore Throat Carvedilol 3.125 mg 03/07/20 21:00 03/09/20 08:46 Carvedilol 3.125 Mg Tablet PO 3.125 mg BID [facility] Administration Protocol Clopidogrel Bisulfate 75 mg 03/08/20 09:00 03/09/20 08:46 Clopidogrel Bisulfate 75 Mg Tablet PO 75 mg DAILY [facility] Administration Docusate Sodium 100 mg 03/07/20 19:22 Docusate Sodium 100 Mg Capsule PO DAILY PRN Constipation Guaifenesin 5 ml 03/08/20 19:12 03/09/20 06:38 Guaifenesin 100 Mg/5 Ml Liquid PO 5 ml Q4H PRN Administration Cough Guaifenesin 600 mg 03/08/20 21:00 03/09/20 08:46 Guaifenesin La 600 Mg Tab.Er.12h PO 600 mg BID [facility] Administration Hydroxyzine HCl 25 mg 03/08/20 15:21 03/09/20 13:03 Hydroxyzine Hcl 25 Mg Tablet PO 25 mg Q6H PRN Administration anxiety/sleep Insulin Glargine 40 unit 03/07/20 21:00 03/08/20 21:09 Insulin Glargine,Hum.Rec.Anlog 100 Unit/Ml 10 Ml Vial SUBCUT 40 unit BEDTIME [facility] Administration Insulin Human Lispro 0 unit 03/07/20 21:00 03/09/20 12:57 Insulin Lispro 100 Unit/Ml 3 Ml Vial SUBCUT 2 unit QIDACHS [facility] Administration Protocol Lorazepam 0.5 mg 03/07/20 19:22 03/09/20 13:03 Lorazepam 0.5 Mg Tablet PO 0.5 mg Q8H PRN Administration Anxiety Magnesium Hydroxide 30 ml 03/07/20 19:22 Milk Of Magnesia 30 Ml Oral.Susp PO DAILY PRN Constipation Metformin HCl 1,000 mg 03/07/20 21:00 03/09/20 08:46 Metformin Hcl 1,000 Mg Tablet PO 1,000 mg BID [facility] Administration Mirtazapine 7.5 mg 03/08/20 21:00 03/08/20 21:10 Mirtazapine 7.5 Mg Tablet PO 7.5 mg BEDTIME [facility] Administration Pharmacy Consult 1 each 03/07/20 19:22 Consult Rx Perform Med Rec MISCELLANE ONCE PRN Consult order Polyethylene Glycol 17 gm 03/08/20 09:00 03/09/20 08:59 Polyethylene Glycol 3350 17 Gm Powd.Pack PO Not Given DAILY [facility] Sertraline HCl 75 mg 03/09/20 09:00 03/09/20 08:46 Sertraline Hcl 25 Mg Tablet PO 75 mg DAILY [facility] Administration Valsartan 80 mg 03/08/20 09:00 03/09/20 08:46 Valsartan 80 Mg Tablet PO 80 mg DAILY [facility] Administration Protocol Allergies Allergies Allergy/AdvReac Type Severity Reaction Status Date / Time levofloxacin [From Levaquin] AdvReac Rash Verified 03/05/20 11:45 morphine AdvReac Vomiting Verified 03/05/20 11:45 Penicillins AdvReac Rash Verified 03/05/20 11:45 Assessment & Plan Assessment & Plan (1) MDD (major depressive disorder), recurrent episode, severe: Status: Acute Code(s): F33.2 - Major depressive disorder, recurrent severe without psychotic features Assessment and Plan: 1. continue sertraline to 75 mg po daily 2. remeron 7,5mg po qhs for sleep. (2) Cocaine abuse: Status: Acute Code(s): F14.10 - Cocaine abuse, uncomplicated Assessment and Plan: 1. consider referral for substance use treatment program. Greater than 50% of the session was spent on counseling and/or coordination of c are
[2020-03-09 17:34] LABS: Glucose, Whole Blood 262 mg/dL (60-115)
[2020-03-09 18:00] VITALS: BP 107/58; PULSE 73; TEMP 36.8
[2020-03-09 20:39] LABS: Glucose, Whole Blood 400 mg/dL (60-115)
[2020-03-09 20:48] VITALS: BP 107/58; PULSE 73
[2020-03-09] MEDS: Insulin Glargine,Hum.rec.anlog 100 UNIT/ML 10 ML VIAL 40 UNIT SUBCUT (20:48)
[2020-03-09] MEDS: Atorvastatin Calcium 80 MG TABLET PO (20:49)
[2020-03-09] MEDS: Mirtazapine 7.5 MG TABLET PO (20:49)
[2020-03-09] MEDS: Insulin Lispro 100 UNIT/ML 3 ML VIAL 10 UNIT SUBCUT (21:14)
[2020-03-10 06:10] VITALS: BP 130/76; PULSE 76; RESP 18; TEMP 36.3; O2SAT 97
[2020-03-10 06:18] LABS: Glucose, Whole Blood 232 mg/dL (60-115)
[2020-03-10] MEDS: Throat Lozenge, Medicated LOZENGE 1 LOZENGE MUCOUS MEM ×3 (06:46→21:27)
[2020-03-10] MEDS: LORazepam 0.5 MG TABLET PO ×2 (06:46→21:27)
[2020-03-10] MEDS: Insulin Lispro 100 UNIT/ML 3 ML VIAL SUBCUT ×4 (08:54→21:13)
[2020-03-10 08:55] VITALS: BP 130/76; PULSE 76
[2020-03-10] MEDS: Valsartan 80 MG TABLET PO (08:55)
[2020-03-10] MEDS: metFORMIN HCl 1,000 MG TABLET 1000 MG PO ×2 (08:56→21:14)
[2020-03-10] MEDS: Clopidogrel Bisulfate 75 MG TABLET PO (08:56)
[2020-03-10 08:57] VITALS: BP 130/76; PULSE 681
[2020-03-10] MEDS: carvediloL 3.125 MG TABLET PO ×2 (08:57→21:14)
[2020-03-10] MEDS: Sertraline HCL 25 MG TABLET 75 MG PO (08:57)
[2020-03-10] MEDS: guaiFENesin LA 600 MG TAB.ER.12H PO ×2 (08:57→21:13)
[2020-03-10 11:44] LABS: Glucose, Whole Blood 222 mg/dL (60-115)
--- NOTE | 2020-03-10 13:58 | P.PNPSI_ITS ---
Subjective Subjective Date of Service: 03/10/20 Reason For Visit: depression Interim History: Pt describes mood as lousy. Pt states he feels stiff all over his body. He also reports he is upset about not having a place to go. He denies SI/HI. He is ambivalent about referrals for substance use tx programs but states he would consider them. He continues to present as irritable at times. Mental Status Exam Mental Status Exam Narrative: Appearance: appears much older than stated age, in wheelchair, poor hygiene, in NAD Behavior: cooperative Psychomotor: no agitation or retardation noted Speech: clear, normal rate/rhythm/volume, spontaneous Mood: depressed Affect: congruent, blunted, irritable at times AH/VH: none Delusions: none Insight/judgment: poor x 2. Memory/cog: alert, oriented x 3. grossly intact to conversational testing. Diagnostics Vital Signs (24Hr): Vital Signs - 24 hr 03/09/20 18:00 03/09/20 20:48 03/10/20 06:10 Temperature 98.3 F 97.4 F Pulse Rate 73 73 76 Respiratory Rate 18 Blood Pressure 107/58 L 107/58 L 130/76 Pulse Oximetry 97 03/10/20 08:55 03/10/20 08:57 Temperature Pulse Rate 76 681 H Respiratory Rate Blood Pressure 130/76 130/76 Pulse Oximetry Body Mass Index 34.5 Labs Labs: Laboratory Results - last 48 hr 03/08/20 03/08/20 03/09/20 17:00 20:59 06:26 POC Glucose 281 H 370 H* 239 H 03/09/20 03/09/20 03/09/20 11:53 17:01 20:34 POC Glucose 171 H 262 H 400 H* 03/10/20 03/10/20 06:09 11:39 POC Glucose 232 H 222 H Medications Medications Current Medications Generic Name Dose Route Start Last Admin Trade Name Freq PRN Reason Stop Dose Admin Acetaminophen 650 mg 03/07/20 19:22 03/08/20 03:21 Acetaminophen 325 Mg Tablet PO 650 mg Q6H PRN Administration Headache/Pain Mild Scale (1-3) Al Hydroxide/Mg Hydroxide 30 ml 03/07/20 19:22 Magnesium Hydrox/Alum Hydrox 30 Ml Oral.Susp PO Q6H PRN Heartburn/Nausea Albuterol Sulfate 2 puff 03/07/20 19:22 Albuterol Sulfate 90 Mcg 8 Gm Inhaler INHALE Q4H PRN Shortness Of Breath Atorvastatin Calcium 80 mg 03/07/20 21:00 03/09/20 20:49 Atorvastatin Calcium 80 Mg Tablet PO 80 mg BEDTIME [facility] Administration Benzocaine 1 lozenge 03/08/20 19:12 03/10/20 06:46 Throat Lozenge, Medicated Lozenge MUCOUS MEM 1 lozenge Q2H PRN Administration Sore Throat Carvedilol 3.125 mg 03/07/20 21:00 03/10/20 08:57 Carvedilol 3.125 Mg Tablet PO 3.125 mg BID [facility] Administration Protocol Clopidogrel Bisulfate 75 mg 03/08/20 09:00 03/10/20 08:56 Clopidogrel Bisulfate 75 Mg Tablet PO 75 mg DAILY [facility] Administration Docusate Sodium 100 mg 03/07/20 19:22 Docusate Sodium 100 Mg Capsule PO DAILY PRN Constipation Guaifenesin 5 ml 03/08/20 19:12 03/09/20 06:38 Guaifenesin 100 Mg/5 Ml Liquid PO 5 ml Q4H PRN Administration Cough Guaifenesin 600 mg 03/08/20 21:00 03/10/20 08:57 Guaifenesin La 600 Mg Tab.Er.12h PO 600 mg BID [facility] Administration Hydroxyzine HCl 25 mg 03/08/20 15:21 03/09/20 13:03 Hydroxyzine Hcl 25 Mg Tablet PO 25 mg Q6H PRN Administration anxiety/sleep Insulin Glargine 40 unit 03/07/20 21:00 03/09/20 20:48 Insulin Glargine,Hum.Rec.Anlog 100 Unit/Ml 10 Ml Vial SUBCUT 40 unit BEDTIME [facility] Administration Insulin Human Lispro 0 unit 03/07/20 21:00 03/10/20 12:33 Insulin Lispro 100 Unit/Ml 3 Ml Vial SUBCUT 4 unit QIDACHS [facility] Administration Protocol Lorazepam 0.5 mg 03/07/20 19:22 03/10/20 06:46 Lorazepam 0.5 Mg Tablet PO 0.5 mg Q8H PRN Administration Anxiety Magnesium Hydroxide 30 ml 03/07/20 19:22 Milk Of Magnesia 30 Ml Oral.Susp PO DAILY PRN Constipation Metformin HCl 1,000 mg 03/07/20 21:00 03/10/20 08:56 Metformin Hcl 1,000 Mg Tablet PO 1,000 mg BID [facility] Administration Mirtazapine 7.5 mg 03/08/20 21:00 03/09/20 20:49 Mirtazapine 7.5 Mg Tablet PO 7.5 mg BEDTIME [facility] Administration Pharmacy Consult 1 each 03/07/20 19:22 Consult Rx Perform Med Rec MISCELLANE ONCE PRN Consult order Polyethylene Glycol 17 gm 03/08/20 09:00 03/10/20 08:58 Polyethylene Glycol 3350 17 Gm Powd.Pack PO Not Given DAILY [facility] Sertraline HCl 75 mg 03/09/20 09:00 03/10/20 08:57 Sertraline Hcl 25 Mg Tablet PO 75 mg DAILY [facility] Administration Valsartan 80 mg 03/08/20 09:00 03/10/20 08:55 Valsartan 80 Mg Tablet PO 80 mg DAILY [facility] Administration Protocol Allergies Allergies Allergy/AdvReac Type Severity Reaction Status Date / Time levofloxacin [From Levaquin] AdvReac Rash Verified 03/05/20 11:45 morphine AdvReac Vomiting Verified 03/05/20 11:45 Penicillins AdvReac Rash Verified 03/05/20 11:45 Assessment & Plan Assessment & Plan (1) MDD (major depressive disorder), recurrent episode, severe: Status: Acute Code(s): F33.2 - Major depressive disorder, recurrent severe without psychotic features Assessment and Plan: 1. continue sertraline to 75 mg po daily 2. remeron 7,5mg po qhs for sleep. (2) Cocaine abuse: Status: Acute Code(s): F14.10 - Cocaine abuse, uncomplicated Assessment and Plan: 1. consider referral for substance use treatment program. Greater than 50% of the session was spent on counseling and/or coordination of care
[2020-03-10] MEDS: Magnesium Hydrox/Alum Hydrox 30 ML ORAL.SUSP PO (14:12)
[2020-03-10 17:01] LABS: Glucose, Whole Blood 338 mg/dL (60-115)
[2020-03-10 18:00] VITALS: BP 98/51; PULSE 74; TEMP 36.6
[2020-03-10] MEDS: Insulin Glargine,Hum.rec.anlog 100 UNIT/ML 10 ML VIAL 40 UNIT SUBCUT (21:13)
[2020-03-10 21:14] VITALS: BP 125/63; PULSE 83
[2020-03-10] MEDS: Atorvastatin Calcium 80 MG TABLET PO (21:14)
[2020-03-10] MEDS: Mirtazapine 7.5 MG TABLET PO (21:18)
[2020-03-10 22:20] LABS: Glucose, Whole Blood 294 mg/dL (60-115)
[2020-03-11] MEDS: Magnesium Hydrox/Alum Hydrox 30 ML ORAL.SUSP PO (00:50)
[2020-03-11] MEDS: hydrOXYzine HCL 25 MG TABLET PO (00:50)
[2020-03-11 06:19] LABS: Glucose, Whole Blood 302 mg/dL (60-115)
[2020-03-11 06:30] VITALS: BP 118/66; PULSE 68; RESP 16; TEMP 36.6; O2SAT 98
[2020-03-11 08:30] VITALS: BP 118/66; PULSE 68
[2020-03-11] MEDS: carvediloL 3.125 MG TABLET PO ×2 (08:30→21:14)
[2020-03-11] MEDS: Clopidogrel Bisulfate 75 MG TABLET PO (08:31)
[2020-03-11] MEDS: Sertraline HCL 25 MG TABLET 75 MG PO (08:31)
[2020-03-11] MEDS: metFORMIN HCl 1,000 MG TABLET 1000 MG PO ×2 (08:31→21:13)
[2020-03-11 08:32] VITALS: BP 118/66; PULSE 68
[2020-03-11] MEDS: guaiFENesin LA 600 MG TAB.ER.12H PO ×2 (08:32→21:14)
[2020-03-11] MEDS: Valsartan 80 MG TABLET PO (08:32)
[2020-03-11] MEDS: polyethylene glycoL 3350 17 GM POWD.PACK PO (08:34)
[2020-03-11] MEDS: Insulin Lispro 100 UNIT/ML 3 ML VIAL SUBCUT ×4 (08:51→21:11)
[2020-03-11] MEDS: guaiFENesin 100 MG/5 ML LIQUID PO (09:13)
[2020-03-11] MEDS: LORazepam 0.5 MG TABLET PO ×2 (09:13→17:01)
[2020-03-11 12:21] LABS: Glucose, Whole Blood 179 mg/dL (60-115)
--- NOTE | 2020-03-11 16:32 | P.PNPSI_ITS ---
Subjective Subjective Date of Service: 03/12/20 Reason For Visit: depression Interim History: Pt continues to describe his mood as lousy. Pt complains about not getting enough food. He was switched to regular diet. He continues to present as irritable at times. He reports intermittent suicidal ideation but denies any plan or intent. He reports better sleep last night. He is minimally interactive with peers. He did agree to be referred [facility]. Medication Compliance: Yes Side effects from medications: No Mental Status Exam Mental Status Exam Narrative: Appearance: appears much older than stated age, in wheelchair, poor hygiene, in NAD Behavior: cooperative Psychomotor: no agitation or retardation noted Speech: clear, normal rate/rhythm/volume, spontaneous Mood: depressed Affect: congruent, blunted, irritable at times AH/VH: none Delusions: none Insight/judgment: poor x 2. Memory/cog: alert, oriented x 3. grossly intact to conversational testing. Diagnostics Vital Signs (24Hr): Vital Signs - 24 hr 03/10/20 18:00 03/10/20 21:14 03/11/20 06:30 Temperature 98 F 97.9 F Pulse Rate 74 83 68 Respiratory Rate 16 Blood Pressure 98/51 L 125/63 118/66 Pulse Oximetry 98 03/11/20 08:30 03/11/20 08:32 Temperature Pulse Rate 68 68 Respiratory Rate Blood Pressure 118/66 118/66 Pulse Oximetry Body Mass Index 34.5 Labs Labs: Laboratory Results - last 48 hr 03/09/20 03/09/20 03/10/20 17:01 20:34 06:09 POC Glucose 262 H 400 H* 232 H 03/10/20 03/10/20 03/10/20 11:39 16:56 21:01 POC Glucose 222 H 338 H 294 H 03/11/20 03/11/20 06:15 12:15 POC Glucose 302 H 179 H Medications Medications Current Medications Generic Name Dose Route Start Last Admin Trade Name Freq PRN Reason Stop Dose Admin Acetaminophen 650 mg 03/07/20 19:22 03/08/20 03:21 Acetaminophen 325 Mg Tablet PO 650 mg Q6H PRN Administration Headache/Pain Mild Scale (1-3) Al Hydroxide/Mg Hydroxide 30 ml 03/07/20 19:22 03/11/20 00:50 Magnesium Hydrox/Alum Hydrox 30 Ml Oral.Susp PO 30 ml Q6H PRN Administration Heartburn/Nausea Albuterol Sulfate 2 puff 03/07/20 19:22 Albuterol Sulfate 90 Mcg 8 Gm Inhaler INHALE Q4H PRN Shortness Of Breath Atorvastatin Calcium 80 mg 03/07/20 21:00 03/10/20 21:14 Atorvastatin Calcium 80 Mg Tablet PO 80 mg BEDTIME [facility] Administration Benzocaine 1 lozenge 03/08/20 19:12 03/10/20 21:27 Throat Lozenge, Medicated Lozenge MUCOUS MEM 1 lozenge Q2H PRN Administration Sore Throat Carvedilol 3.125 mg 03/07/20 21:00 03/11/20 08:30 Carvedilol 3.125 Mg Tablet PO 3.125 mg BID [facility] Administration Protocol Clopidogrel Bisulfate 75 mg 03/08/20 09:00 03/11/20 08:31 Clopidogrel Bisulfate 75 Mg Tablet PO 75 mg DAILY [facility] Administration Docusate Sodium 100 mg 03/07/20 19:22 Docusate Sodium 100 Mg Capsule PO DAILY PRN Constipation Guaifenesin 5 ml 03/08/20 19:12 03/11/20 09:13 Guaifenesin 100 Mg/5 Ml Liquid PO 5 ml Q4H PRN Administration Cough Guaifenesin 600 mg 03/08/20 21:00 03/11/20 08:32 Guaifenesin La 600 Mg Tab.Er.12h PO 600 mg BID [facility] Administration Hydroxyzine HCl 25 mg 03/08/20 15:21 03/11/20 00:50 Hydroxyzine Hcl 25 Mg Tablet PO 25 mg Q6H PRN Administration anxiety/sleep Insulin Glargine 40 unit 03/07/20 21:00 03/10/20 21:13 Insulin Glargine,Hum.Rec.Anlog 100 Unit/Ml 10 Ml Vial SUBCUT 40 unit BEDTIME [facility] Administration Insulin Human Lispro 0 unit 03/07/20 21:00 03/11/20 12:49 Insulin Lispro 100 Unit/Ml 3 Ml Vial SUBCUT 2 unit QIDACHS [facility] Administration Protocol Lorazepam 0.5 mg 03/07/20 19:22 03/11/20 09:13 Lorazepam 0.5 Mg Tablet PO 0.5 mg Q8H PRN Administration Anxiety Magnesium Hydroxide 30 ml 03/07/20 19:22 Milk Of Magnesia 30 Ml Oral.Susp PO DAILY PRN Constipation Metformin HCl 1,000 mg 03/07/20 21:00 03/11/20 08:31 Metformin Hcl 1,000 Mg Tablet PO 1,000 mg BID [facility] Administration Mirtazapine 7.5 mg 03/08/20 21:00 03/10/20 21:18 Mirtazapine 7.5 Mg Tablet PO 7.5 mg BEDTIME [facility] Administration Pharmacy Consult 1 each 03/07/20 19:22 Consult Rx Perform Med Rec MISCELLANE ONCE PRN Consult order Polyethylene Glycol 17 gm 03/08/20 09:00 03/11/20 08:34 Polyethylene Glycol 3350 17 Gm Powd.Pack PO 17 gm DAILY [facility] Administration Sertraline HCl 75 mg 03/09/20 09:00 03/11/20 08:31 Sertraline Hcl 25 Mg Tablet PO 75 mg DAILY [facility] Administration Valsartan 80 mg 03/08/20 09:00 03/11/20 08:32 Valsartan 80 Mg Tablet PO 80 mg DAILY [facility] Administration Protocol Allergies Allergies Allergy/AdvReac Type Severity Reaction Status Date / Time levofloxacin [From Levaquin] AdvReac Rash Verified 03/05/20 11:45 morphine AdvReac Vomiting Verified 03/05/20 11:45 Penicillins AdvReac Rash Verified 03/05/20 11:45 Assessment & Plan Assessment & Plan (1) MDD (major depressive disorder), recurrent episode, severe: Status: Acute Code(s): F33.2 - Major depressive disorder, recurrent severe without psychotic features Assessment and Plan: 1. continue sertraline to 75 mg po daily 2. remeron 7,5mg po qhs for sleep. (2) Cocaine abuse: Status: Acute Code(s): F14.10 - Cocaine abuse, uncomplicated Assessment and Plan: 1. consider referral for substance use treatment program. Greater than 50% of the session was spent on counseling and/or coordination of care
[2020-03-11 16:54] LABS: Glucose, Whole Blood 239 mg/dL (60-115)
[2020-03-11 18:00] VITALS: BP 134/62; PULSE 86; TEMP 36.8
[2020-03-11] MEDS: Insulin Glargine,Hum.rec.anlog 100 UNIT/ML 10 ML VIAL 40 UNIT SUBCUT (21:10)
[2020-03-11] MEDS: Atorvastatin Calcium 80 MG TABLET PO (21:13)
[2020-03-11] MEDS: Mirtazapine 7.5 MG TABLET PO (21:13)
[2020-03-11] MEDS: LORazepam 1 MG TABLET PO (21:13)
[2020-03-11 21:14] VITALS: BP 134/62; PULSE 86
[2020-03-11 21:30] LABS: Glucose, Whole Blood 348 mg/dL (60-115)
[2020-03-12] MEDS: Albuterol Sulfate 90 MCG 8 GM INHALER 2 PUFF INHALE (00:38)
[2020-03-12 00:40] VITALS: BP 132/72; PULSE 75; RESP 18; TEMP -12.7; TEMP 9; O2SAT 98
[2020-03-12] MEDS: hydrOXYzine HCL 25 MG TABLET PO ×2 (00:40→19:32)
[2020-03-12] MEDS: LORazepam 0.5 MG TABLET PO ×2 (00:41→13:22)
[2020-03-12 06:21] LABS: Glucose, Whole Blood 168 mg/dL (60-115)
[2020-03-12 06:35] VITALS: BP 100/56; PULSE 69; RESP 16; TEMP 36.3; O2SAT 97
[2020-03-12] MEDS: Insulin Lispro 100 UNIT/ML 3 ML VIAL SUBCUT ×4 (09:40→20:30)
[2020-03-12] MEDS: Sertraline HCL 25 MG TABLET 75 MG PO (09:42)
[2020-03-12] MEDS: Clopidogrel Bisulfate 75 MG TABLET PO (09:43)
[2020-03-12] MEDS: guaiFENesin LA 600 MG TAB.ER.12H PO ×2 (09:43→20:31)
[2020-03-12] MEDS: metFORMIN HCl 1,000 MG TABLET 1000 MG PO ×2 (09:43→20:31)
[2020-03-12 09:46] VITALS: BP 132/66; PULSE 77
[2020-03-12] MEDS: carvediloL 3.125 MG TABLET PO (09:46)
[2020-03-12 09:47] VITALS: BP 132/66; PULSE 77
[2020-03-12] MEDS: Valsartan 80 MG TABLET PO (09:47)
[2020-03-12 12:10] LABS: Glucose, Whole Blood 234 mg/dL (60-115)
--- NOTE | 2020-03-12 16:03 | P.PNPSI_ITS ---
Subjective Subjective Date of Service: 03/12/20 Reason For Visit: depression Interim History: Pt continues to describe his mood as lousy. Pt complains about not getting enough food. He was switched to regular diet. He continues to present as irritable at times. He reports intermittent suicidal ideation but denies any plan or intent. He reports better sleep last night. He is minimally interactive with peers. He did agree to be referred [facility]. Mental Status Exam Mental Status Exam Narrative: Appearance: appears much older than stated age, in wheelchair, poor hygiene, in NAD Behavior: cooperative Psychomotor: no agitation or retardation noted Speech: clear, normal rate/rhythm/volume, spontaneous Mood: depressed Affect: congruent, blunted, irritable at times AH/VH: none Delusions: none Insight/judgment: poor x 2. Memory/cog: alert, oriented x 3. grossly intact to conversational testing. Diagnostics Vital Signs (24Hr): Vital Signs - 24 hr 03/13/20 18:00 03/13/20 20:47 03/14/20 05:55 Temperature 98.0 F 98.2 F Pulse Rate 92 92 82 Respiratory Rate 18 Blood Pressure 124/65 124/65 105/59 L Pulse Oximetry 97 03/14/20 08:45 Temperature Pulse Rate 82 Respiratory Rate Blood Pressure 105/59 L Pulse Oximetry Body Mass Index 34.5 Labs Results: 03/14/20 13:29 03/14/20 13:29 Labs: Laboratory Results - last 48 hr 03/12/20 03/12/20 03/13/20 17:25 20:22 05:46 WBC RBC Hgb Hct MCV MCH MCHC RDW Plt Count MPV Immature Gran % (Auto) Neut % (Auto) Lymph % (Auto) [place] % (Auto) Eos % (Auto) Baso % (Auto) Lymph # (Auto) [place] # (Auto) Eos # (Auto) Baso # (Auto) Abs Immat Gran (auto) Absolute Neuts (auto) Absolute Nucleated RBC Nucleated RBC % (auto) Sodium Potassium Chloride Carbon Dioxide Anion Gap BUN Creatinine Estim Creat Clear Calc Estimated GFR POC Glucose 249 H 192 H 168 H Random Glucose Calcium Total Bilirubin Direct Bilirubin GGT AST ALT Alkaline Phosphatase Total Protein Albumin Amylase Lipase 03/13/20 03/13/20 03/13/20 11:34 16:52 20:12 WBC RBC Hgb Hct MCV MCH MCHC RDW Plt Count MPV Immature Gran % (Auto) Neut % (Auto) Lymph % (Auto) [place] % (Auto) Eos % (Auto) Baso % (Auto) Lymph # (Auto) [place] # (Auto) Eos # (Auto) Baso # (Auto) Abs Immat Gran (auto) Absolute Neuts (auto) Absolute Nucleated RBC Nucleated RBC % (auto) Sodium Potassium Chloride Carbon Dioxide Anion Gap BUN Creatinine Estim Creat Clear Calc Estimated GFR POC Glucose 182 H 217 H 317 H Random Glucose Calcium Total Bilirubin Direct Bilirubin GGT AST ALT Alkaline Phosphatase Total Protein Albumin Amylase Lipase 03/14/20 03/14/20 03/14/20 06:43 07:49 12:01 WBC RBC Hgb Hct MCV MCH MCHC RDW Plt Count MPV Immature Gran % (Auto) Neut % (Auto) Lymph % (Auto) [place] % (Auto) Eos % (Auto) Baso % (Auto) Lymph # (Auto) [place] # (Auto) Eos # (Auto) Baso # (Auto) Abs Immat Gran (auto) Absolute Neuts (auto) Absolute Nucleated RBC Nucleated RBC % (auto) Sodium Potassium Chloride Carbon Dioxide Anion Gap BUN Creatinine 0.94 Estim Creat Clear Calc 104.7 Estimated GFR > 60 POC Glucose 176 H 166 H Random Glucose Calcium Total Bilirubin Direct Bilirubin GGT AST ALT Alkaline Phosphatase Total Protein Albumin Amylase Lipase 03/14/20 03/14/20 03/14/20 13:29 13:29 13:29 WBC 9.3 RBC 4.35 L Hgb 12.3 L Hct 38.7 L MCV 89.0 MCH 28.3 MCHC 31.8 RDW 13.2 Plt Count 369 D MPV 9.9 Immature Gran % (Auto) 0.2 Neut % (Auto) 67.1 Lymph % (Auto) 24.2 [place] % (Auto) 6.2 Eos % (Auto) 1.8 Baso % (Auto) 0.5 Lymph # (Auto) 2.3 [place] # (Auto) 0.6 Eos # (Auto) 0.2 Baso # (Auto) 0.1 Abs Immat Gran (auto) 0.02 Absolute Neuts (auto) 6.2 Absolute Nucleated RBC 0.000 Nucleated RBC % (auto) 0.0 Sodium 139 Potassium 4.8 Chloride 104 Carbon Dioxide 25 Anion Gap 15 BUN 32 H Creatinine 0.97 Estim Creat Clear Calc 101.5 Estimated GFR > 60 POC Glucose Random Glucose 161 H D Calcium 9.4 D Total Bilirubin 0.5 Direct Bilirubin GGT AST 18 D ALT 28 Alkaline Phosphatase 103 D Total Protein 6.7 Albumin 3.7 Amylase 70 Lipase 03/14/20 03/14/20 13:29 13:29 WBC RBC Hgb Hct MCV MCH MCHC RDW Plt Count MPV Immature Gran % (Auto) Neut % (Auto) Lymph % (Auto) [place] % (Auto) Eos % (Auto) Baso % (Auto) Lymph # (Auto) [place] # (Auto) Eos # (Auto) Baso # (Auto) Abs Immat Gran (auto) Absolute Neuts (auto) Absolute Nucleated RBC Nucleated RBC % (auto) Sodium Potassium Chloride Carbon Dioxide Anion Gap BUN Creatinine Estim Creat Clear Calc Estimated GFR POC Glucose Random Glucose Calcium Total Bilirubin 0.5 Direct Bilirubin 0.2 GGT 42 AST 17 ALT 29 Alkaline Phosphatase 103 Total Protein 6.8 Albumin 3.7 Amylase Lipase 122 H Medications Medications Current Medications Generic Name Dose Route Start Last Admin Trade Name Freq PRN Reason Stop Dose Admin Acetaminophen 650 mg 03/07/20 19:22 03/14/20 14:03 Acetaminophen 325 Mg Tablet PO 650 mg Q6H PRN Administration Headache/Pain Mild Scale (1-3) Al Hydroxide/Mg Hydroxide 30 ml 03/07/20 19:22 03/11/20 00:50 Magnesium Hydrox/Alum Hydrox 30 Ml Oral.Susp PO 30 ml Q6H PRN Administration Heartburn/Nausea Albuterol Sulfate 2 puff 03/07/20 19:22 03/12/20 00:38 Albuterol Sulfate 90 Mcg 8 Gm Inhaler INHALE 2 puff Q4H PRN Administration Shortness Of Breath Atorvastatin Calcium 80 mg 03/07/20 21:00 03/13/20 20:49 Atorvastatin Calcium 80 Mg Tablet PO 80 mg BEDTIME VISHNU Administration Benzocaine 1 lozenge 03/08/20 19:12 03/10/20 21:27 Throat Lozenge, Medicated Lozenge MUCOUS MEM 1 lozenge Q2H PRN Administration Sore Throat Calcium Carbonate 750 mg 03/14/20 11:42 03/14/20 11:59 Calcium Carbonate 750 Mg Tab.Chew PO 750 mg Q4H PRN Administration Dyspepsia Carvedilol 3.125 mg 03/07/20 21:00 03/14/20 08:45 Carvedilol 3.125 Mg Tablet PO 3.125 mg BID VISHNU Administration Protocol Clopidogrel Bisulfate 75 mg 03/08/20 09:00 03/14/20 08:45 Clopidogrel Bisulfate 75 Mg Tablet PO 75 mg DAILY VISHNU Administration Docusate Sodium 100 mg 03/07/20 19:22 Docusate Sodium 100 Mg Capsule PO DAILY PRN Constipation Guaifenesin 5 ml 03/08/20 19:12 03/11/20 09:13 Guaifenesin 100 Mg/5 Ml Liquid PO 5 ml Q4H PRN Administration Cough Guaifenesin 600 mg 03/08/20 21:00 03/14/20 08:45 Guaifenesin La 600 Mg Tab.Er.12h PO 600 mg BID VISNHU Administration Hydroxyzine HCl 25 mg 03/08/20 15:21 03/14/20 09:40 Hydroxyzine Hcl 25 Mg Tablet PO 25 mg Q6H PRN Administration anxiety/sleep Insulin Glargine 40 unit 03/07/20 21:00 03/13/20 20:48 Insulin Glargine,Hum.Rec.Anlog 100 Unit/Ml 10 Ml Vial SUBCUT 40 unit BEDTIME VISHNU Administration Insulin Human Lispro 0 unit 03/07/20 21:00 03/14/20 14:09 Insulin Lispro 100 Unit/Ml 3 Ml Vial SUBCUT 2 unit QIDACHS [facility] Administration Protocol Lorazepam 0.5 mg 03/14/20 15:24 Lorazepam 0.5 Mg Tablet PO Q4H PRN Anxiety Magnesium Hydroxide 30 ml 03/07/20 19:22 Milk Of Magnesia 30 Ml Oral.Susp PO DAILY PRN Constipation Metformin HCl 1,000 mg 03/07/20 21:00 03/14/20 08:45 Metformin Hcl 1,000 Mg Tablet PO 1,000 mg BID VISHNU Administration Mirtazapine 7.5 mg 03/08/20 21:00 03/13/20 20:47 Mirtazapine 7.5 Mg Tablet PO 7.5 mg BEDTIME [facility] Administration Pharmacy Consult 1 each 03/07/20 19:22 Consult Rx Perform Med Rec MISCELLANE ONCE PRN Consult order Polyethylene Glycol 17 gm 03/08/20 09:00 03/14/20 09:24 Polyethylene Glycol 3350 17 Gm Powd.Pack PO Not Given DAILY VISHNU Sertraline HCl 75 mg 03/09/20 09:00 03/14/20 08:45 Sertraline Hcl 25 Mg Tablet PO 75 mg DAILY VISHNU Administration Valsartan 80 mg 03/08/20 09:00 03/14/20 08:45 Valsartan 80 Mg Tablet PO 80 mg DAILY VISHNU Administration Protocol Allergies Allergies Allergy/AdvReac Type Severity Reaction Status Date / Time levofloxacin [From Levaquin] AdvReac Rash Verified 03/05/20 11:45 morphine AdvReac Vomiting Verified 03/05/20 11:45 Penicillins AdvReac Rash Verified 03/05/20 11:45 Assessment & Plan Assessment & Plan (1) MDD (major depressive disorder), recurrent episode, severe: Status: Acute Code(s): F33.2 - Major depressive disorder, recurrent severe without psychotic features Assessment and Plan: 1. continue sertraline to 75 mg po daily 2. remeron 7,5mg po qhs for sleep. (2) Cocaine abuse: Status: Acute Code(s): F14.10 - Cocaine abuse, uncomplicated Assessment and Plan: 1. consider referral for substance use treatment program. Greater than 50% of the session was spent on counseling and/or coordination of care Reason for contiued inpatient stay Substantial Risk for: harm to self
[2020-03-12 17:30] LABS: Glucose, Whole Blood 249 mg/dL (60-115)
[2020-03-12 18:00] VITALS: BP 97/50; PULSE 77; TEMP 36.2
[2020-03-12] MEDS: Insulin Glargine,Hum.rec.anlog 100 UNIT/ML 10 ML VIAL 40 UNIT SUBCUT (20:28)
[2020-03-12] MEDS: Mirtazapine 7.5 MG TABLET PO (20:31)
[2020-03-12] MEDS: Atorvastatin Calcium 80 MG TABLET PO (20:31)
[2020-03-12 20:32] VITALS: BP 108/55; PULSE 83
[2020-03-12 21:02] LABS: Glucose, Whole Blood 192 mg/dL (60-115)
[2020-03-13 05:45] VITALS: BP 133/67; PULSE 73; RESP 18; TEMP 36.4; O2SAT 97
[2020-03-13 05:50] LABS: Glucose, Whole Blood 168 mg/dL (60-115)
[2020-03-13] MEDS: hydrOXYzine HCL 25 MG TABLET PO ×2 (05:54→17:18)
[2020-03-13 08:46] VITALS: BP 133/67; PULSE 73
[2020-03-13] MEDS: polyethylene glycoL 3350 17 GM POWD.PACK PO (08:46)
[2020-03-13] MEDS: Valsartan 80 MG TABLET PO (08:46)
[2020-03-13] MEDS: metFORMIN HCl 1,000 MG TABLET 1000 MG PO ×2 (08:46→20:47)
[2020-03-13] MEDS: Clopidogrel Bisulfate 75 MG TABLET PO (08:46)
[2020-03-13] MEDS: Sertraline HCL 25 MG TABLET 75 MG PO (08:46)
[2020-03-13] MEDS: carvediloL 3.125 MG TABLET PO ×2 (08:46→20:47)
[2020-03-13] MEDS: guaiFENesin LA 600 MG TAB.ER.12H PO ×2 (08:46→20:49)
[2020-03-13] MEDS: Insulin Lispro 100 UNIT/ML 3 ML VIAL SUBCUT ×4 (08:46→20:48)
[2020-03-13 11:37] LABS: Glucose, Whole Blood 182 mg/dL (60-115)
--- NOTE | 2020-03-13 16:05 | HO.PSYCHPN ---
Subjective Subjective Date of Service: 03/14/20 Reason For Visit: depression Subjective Notes: Conditional Voluntary Interim History: Pt continues to describe his mood as lousy. Pt complains about not getting enough food. He was switched to regular diet. He continues to present as irritable at times. He reports intermittent suicidal ideation but denies any plan or intent. He reports better sleep last night. He is minimally interactive with peers. He did agree to be referred [facility]. Mental Status Exam Mental Status Exam Narrative: Appearance: appears much older than stated age, in wheelchair, poor hygiene, in NAD Behavior: cooperative Psychomotor: no agitation or retardation noted Speech: clear, normal rate/rhythm/volume, spontaneous Mood: depressed Affect: congruent, blunted, irritable at times AH/VH: none Delusions: none Insight/judgment: poor x 2. Memory/cog: alert, oriented x 3. grossly intact to conversational testing. Diagnostics Vital Signs (24Hr): Vital Signs - 24 hr 03/13/20 18:00 03/13/20 20:47 03/14/20 05:55 Temperature 98.0 F 98.2 F Pulse Rate 92 92 82 Respiratory Rate 18 Blood Pressure 124/65 124/65 105/59 L Pulse Oximetry 97 03/14/20 08:45 Temperature Pulse Rate 82 Respiratory Rate Blood Pressure 105/59 L Pulse Oximetry Body Mass Index 34.5 Labs Results: 03/14/20 13:29 03/14/20 13:29 Labs: Laboratory Results - last 48 hr 03/12/20 03/12/20 03/13/20 17:25 20:22 05:46 WBC RBC Hgb Hct MCV MCH MCHC RDW Plt Count MPV Immature Gran % (Auto) Neut % (Auto) Lymph % (Auto) [place] % (Auto) Eos % (Auto) Baso % (Auto) Lymph # (Auto) [place] # (Auto) Eos # (Auto) Baso # (Auto) Abs Immat Gran (auto) Absolute Neuts (auto) Absolute Nucleated RBC Nucleated RBC % (auto) Sodium Potassium Chloride Carbon Dioxide Anion Gap BUN Creatinine Estim Creat Clear Calc Estimated GFR POC Glucose 249 H 192 H 168 H Random Glucose Calcium Total Bilirubin Direct Bilirubin GGT AST ALT Alkaline Phosphatase Total Protein Albumin Amylase Lipase 03/13/20 03/13/20 03/13/20 11:34 16:52 20:12 WBC RBC Hgb Hct MCV MCH MCHC RDW Plt Count MPV Immature Gran % (Auto) Neut % (Auto) Lymph % (Auto) [place] % (Auto) Eos % (Auto) Baso % (Auto) Lymph # (Auto) [place] # (Auto) Eos # (Auto) Baso # (Auto) Abs Immat Gran (auto) Absolute Neuts (auto) Absolute Nucleated RBC Nucleated RBC % (auto) Sodium Potassium Chloride Carbon Dioxide Anion Gap BUN Creatinine Estim Creat Clear Calc Estimated GFR POC Glucose 182 H 217 H 317 H Random Glucose Calcium Total Bilirubin Direct Bilirubin GGT AST ALT Alkaline Phosphatase Total Protein Albumin Amylase Lipase 03/14/20 03/14/20 03/14/20 06:43 07:49 12:01 WBC RBC Hgb Hct MCV MCH MCHC RDW Plt Count MPV Immature Gran % (Auto) Neut % (Auto) Lymph % (Auto) [place] % (Auto) Eos % (Auto) Baso % (Auto) Lymph # (Auto) [place] # (Auto) Eos # (Auto) Baso # (Auto) Abs Immat Gran (auto) Absolute Neuts (auto) Absolute Nucleated RBC Nucleated RBC % (auto) Sodium Potassium Chloride Carbon Dioxide Anion Gap BUN Creatinine 0.94 Estim Creat Clear Calc 104.7 Estimated GFR > 60 POC Glucose 176 H 166 H Random Glucose Calcium Total Bilirubin Direct Bilirubin GGT AST ALT Alkaline Phosphatase Total Protein Albumin Amylase Lipase 03/14/20 03/14/20 03/14/20 13:29 13:29 13:29 WBC 9.3 RBC 4.35 L Hgb 12.3 L Hct 38.7 L MCV 89.0 MCH 28.3 MCHC 31.8 RDW 13.2 Plt Count 369 D MPV 9.9 Immature Gran % (Auto) 0.2 Neut % (Auto) 67.1 Lymph % (Auto) 24.2 [place] % (Auto) 6.2 Eos % (Auto) 1.8 Baso % (Auto) 0.5 Lymph # (Auto) 2.3 [place] # (Auto) 0.6 Eos # (Auto) 0.2 Baso # (Auto) 0.1 Abs Immat Gran (auto) 0.02 Absolute Neuts (auto) 6.2 Absolute Nucleated RBC 0.000 Nucleated RBC % (auto) 0.0 Sodium 139 Potassium 4.8 Chloride 104 Carbon Dioxide 25 Anion Gap 15 BUN 32 H Creatinine 0.97 Estim Creat Clear Calc 101.5 Estimated GFR > 60 POC Glucose Random Glucose 161 H D Calcium 9.4 D Total Bilirubin 0.5 Direct Bilirubin GGT AST 18 D ALT 28 Alkaline Phosphatase 103 D Total Protein 6.7 Albumin 3.7 Amylase 70 Lipase 03/14/20 03/14/20 13:29 13:29 WBC RBC Hgb Hct MCV MCH MCHC RDW Plt Count MPV Immature Gran % (Auto) Neut % (Auto) Lymph % (Auto) [place] % (Auto) Eos % (Auto) Baso % (Auto) Lymph # (Auto) [place] # (Auto) Eos # (Auto) Baso # (Auto) Abs Immat Gran (auto) Absolute Neuts (auto) Absolute Nucleated RBC Nucleated RBC % (auto) Sodium Potassium Chloride Carbon Dioxide Anion Gap BUN Creatinine Estim Creat Clear Calc Estimated GFR POC Glucose Random Glucose Calcium Total Bilirubin 0.5 Direct Bilirubin 0.2 GGT 42 AST 17 ALT 29 Alkaline Phosphatase 103 Total Protein 6.8 Albumin 3.7 Amylase Lipase 122 H Medications Medications Current Medications Generic Name Dose Route Start Last Admin Trade Name Freq PRN Reason Stop Dose Admin Acetaminophen 650 mg 03/07/20 19:22 03/14/20 14:03 Acetaminophen 325 Mg Tablet PO 650 mg Q6H PRN Administration Headache/Pain Mild Scale (1-3) Al Hydroxide/Mg Hydroxide 30 ml 03/07/20 19:22 03/11/20 00:50 Magnesium Hydrox/Alum Hydrox 30 Ml Oral.Susp PO 30 ml Q6H PRN Administration Heartburn/Nausea Albuterol Sulfate 2 puff 03/07/20 19:22 03/12/20 00:38 Albuterol Sulfate 90 Mcg 8 Gm Inhaler INHALE 2 puff Q4H PRN Administration Shortness Of Breath Atorvastatin Calcium 80 mg 03/07/20 21:00 03/13/20 20:49 Atorvastatin Calcium 80 Mg Tablet PO 80 mg BEDTIME VISHNU Administration Benzocaine 1 lozenge 03/08/20 19:12 03/10/20 21:27 Throat Lozenge, Medicated Lozenge MUCOUS MEM 1 lozenge Q2H PRN Administration Sore Throat Calcium Carbonate 750 mg 03/14/20 11:42 03/14/20 11:59 Calcium Carbonate 750 Mg Tab.Chew PO 750 mg Q4H PRN Administration Dyspepsia Carvedilol 3.125 mg 03/07/20 21:00 03/14/20 08:45 Carvedilol 3.125 Mg Tablet PO 3.125 mg BID VISHNU Administration Protocol Clopidogrel Bisulfate 75 mg 03/08/20 09:00 03/14/20 08:45 Clopidogrel Bisulfate 75 Mg Tablet PO 75 mg DAILY VISHNU Administration Docusate Sodium 100 mg 03/07/20 19:22 Docusate Sodium 100 Mg Capsule PO DAILY PRN Constipation Guaifenesin 5 ml 03/08/20 19:12 03/11/20 09:13 Guaifenesin 100 Mg/5 Ml Liquid PO 5 ml Q4H PRN Administration Cough Guaifenesin 600 mg 03/08/20 21:00 03/14/20 08:45 Guaifenesin La 600 Mg Tab.Er.12h PO 600 mg BID VISHNU Administration Hydroxyzine HCl 25 mg 03/08/20 15:21 03/14/20 09:40 Hydroxyzine Hcl 25 Mg Tablet PO 25 mg Q6H PRN Administration anxiety/sleep Insulin Glargine 40 unit 03/07/20 21:00 03/13/20 20:48 Insulin Glargine,Hum.Rec.Anlog 100 Unit/Ml 10 Ml Vial SUBCUT 40 unit BEDTIME VISHNU Administration Insulin Human Lispro 0 unit 03/07/20 21:00 03/14/20 14:09 Insulin Lispro 100 Unit/Ml 3 Ml Vial SUBCUT 2 unit QIDACHS [facility] Administration Protocol Lorazepam 0.5 mg 03/14/20 15:24 Lorazepam 0.5 Mg Tablet PO Q4H PRN Anxiety Magnesium Hydroxide 30 ml 03/07/20 19:22 Milk Of Magnesia 30 Ml Oral.Susp PO DAILY PRN Constipation Metformin HCl 1,000 mg 03/07/20 21:00 03/14/20 08:45 Metformin Hcl 1,000 Mg Tablet PO 1,000 mg BID VISHNU Administration Mirtazapine 7.5 mg 03/08/20 21:00 03/13/20 20:47 Mirtazapine 7.5 Mg Tablet PO 7.5 mg BEDTIME [facility] Administration Pharmacy Consult 1 each 03/07/20 19:22 Consult Rx Perform Med Rec MISCELLANE ONCE PRN Consult order Polyethylene Glycol 17 gm 03/08/20 09:00 03/14/20 09:24 Polyethylene Glycol 3350 17 Gm Powd.Pack PO Not Given DAILY [facility] Sertraline HCl 75 mg 03/09/20 09:00 03/14/20 08:45 Sertraline Hcl 25 Mg Tablet PO 75 mg DAILY VISHNU Administration Valsartan 80 mg 03/08/20 09:00 03/14/20 08:45 Valsartan 80 Mg Tablet PO 80 mg DAILY VISHNU Administration Protocol Allergies Allergies Allergy/AdvReac Type Severity Reaction Status Date / Time levofloxacin [From Levaquin] AdvReac Rash Verified 03/05/20 11:45 morphine AdvReac Vomiting Verified 03/05/20 11:45 Penicillins AdvReac Rash Verified 03/05/20 11:45 Assessment & Plan Assessment & Plan (1) MDD (major depressive disorder), recurrent episode, severe: Status: Acute Code(s): F33.2 - Major depressive disorder, recurrent severe without psychotic features Assessment and Plan: 1. continue sertraline to 75 mg po daily 2. remeron 7,5mg po qhs for sleep. (2) Cocaine abuse: Status: Acute Code(s): F14.10 - Cocaine abuse, uncomplicated Assessment and Plan: 1. consider referral for substance use treatment program. Greater than 50% of the session was spent on counseling and/or coordination of care Reason for contiued inpatient stay Substantial Risk for: harm to self
[2020-03-13 16:57] LABS: Glucose, Whole Blood 217 mg/dL (60-115)
[2020-03-13 18:00] VITALS: BP 124/65; PULSE 92; TEMP 36.7
[2020-03-13 20:17] LABS: Glucose, Whole Blood 317 mg/dL (60-115)
[2020-03-13 20:47] VITALS: BP 124/65; PULSE 92
[2020-03-13] MEDS: Mirtazapine 7.5 MG TABLET PO (20:47)
[2020-03-13] MEDS: Insulin Glargine,Hum.rec.anlog 100 UNIT/ML 10 ML VIAL 40 UNIT SUBCUT (20:48)
[2020-03-13] MEDS: Atorvastatin Calcium 80 MG TABLET PO (20:49)
[2020-03-14] MEDS: hydrOXYzine HCL 25 MG TABLET PO ×3 (02:20→18:17)
[2020-03-14 05:55] VITALS: BP 105/59; PULSE 82; RESP 18; TEMP 36.8; O2SAT 97
[2020-03-14 06:47] LABS: Glucose, Whole Blood 176 mg/dL (60-115)
[2020-03-14 08:30] LABS: Creatinine Clr Calc Pharmacy 104.7; Estimated Glomerular Filt Rate > 60
[2020-03-14] MEDS: Insulin Lispro 100 UNIT/ML 3 ML VIAL SUBCUT ×4 (08:44→20:55)
[2020-03-14 08:45] VITALS: BP 105/59; PULSE 82
[2020-03-14] MEDS: guaiFENesin LA 600 MG TAB.ER.12H PO ×2 (08:45→20:56)
[2020-03-14] MEDS: carvediloL 3.125 MG TABLET PO ×2 (08:45→20:56)
[2020-03-14] MEDS: Valsartan 80 MG TABLET PO (08:45)
[2020-03-14] MEDS: Clopidogrel Bisulfate 75 MG TABLET PO (08:45)
[2020-03-14] MEDS: Sertraline HCL 25 MG TABLET 75 MG PO (08:45)
[2020-03-14] MEDS: metFORMIN HCl 1,000 MG TABLET 1000 MG PO ×2 (08:45→20:56)
[2020-03-14] MEDS: Calcium Carbonate 750 MG TAB.CHEW PO (11:59)
[2020-03-14 12:06] LABS: Glucose, Whole Blood 166 mg/dL (60-115)
[2020-03-14 13:38] LABS: MANUAL DIFF FLAG NO
[2020-03-14 13:41] LABS: Basophils Absolute Auto 0.1 X10*3/uL (0.0-0.2); Basophils Percent Auto 0.5 % (0-2); Eosinophils Absolute Auto 0.2 X10*3/uL (0.0-0.4); Eosinophils Percent Auto 1.8 % (0-4); Hematocrit 38.7 % (42-52); Hemoglobin 12.3 g/dl (14.0-18.0); Imm Gran Abs Auto 0.02 X10*3/uL (0.00-0.03); Imm Gran Pct Auto 0.2 % (0.0-0.4); Lymphocytes Absolute Auto 2.3 X10*3/uL (1.2-4.9); Lymphocytes Percent Auto 24.2 % (20-40); Mean Corpuscular HGB Conc 31.8 g/dl (31.0-36.0); Mean Corpuscular Hemoglobin 28.3 pg (27.0-33.0); Mean Platelet Volume 9.9 fL (9.4-12.4); Monocytes Absolute Auto 0.6 X10*3/uL (0.1-1.2); Monocytes Percent Auto 6.2 % (2-11); Neutrophils Absolute Auto 6.2 X10*3/uL (2.0-8.3); Neutrophils Percent Auto 67.1 % (45-73); Platelet Count 369 X10*3/uL (160-400); Red Blood Count 4.35 X10*6/uL (4.60-5.80); Red Cell Distribution Width 13.2 % (11.0-16.0); White Blood Count 9.3 X10*3/uL (4.8-10.8)
[2020-03-14 13:58] LABS: Amylase 70 U/L (28-100)
[2020-03-14] MEDS: Acetaminophen 325 MG TABLET 650 MG PO (14:03)
[2020-03-14 14:07] LABS: Alanine Aminotransferase 28 U/L (0-40); Albumin Level 3.7 g/dL (3.5-5.0); Alkaline Phosphatase 103 U/L (39-117); Anion Gap 15 (12-20); Aspartate Amino Transferase 18 U/L (5-37); Bilirubin Total 0.5 mg/dL (0.0-1.0); Blood Urea Nitrogen 32 mg/dL (9-16); Calcium 9.4 mg/dL (8.4-10.2); Carbon Dioxide 25 mmol/L (22-29); Chloride 104 mmol/L (96-108); Creatinine Clr Calc Pharmacy 101.5; Estimated Glomerular Filt Rate > 60; Glucose Random 161 mg/dL (60-115); Potassium 4.8 mmol/L (3.3-5.1); Sodium 139 mmol/L (135-145); Total Protein 6.7 g/dL (6.5-8.0)
[2020-03-14 14:08] LABS: Alanine Aminotransferase 29 U/L (0-40); Albumin Level 3.7 g/dL (3.5-5.0); Alkaline Phosphatase 103 U/L (39-117); Aspartate Amino Transferase 17 U/L (5-37); Bilirubin Direct 0.2 mg/dL (0.0-0.5); Bilirubin Total 0.5 mg/dL (0.0-1.0); Total Protein 6.8 g/dL (6.5-8.0)
[2020-03-14 14:09] LABS: Gamma Glutamyl Transpeptidase 42 U/L (11-51)
[2020-03-14 14:23] LABS: Lipase 122 U/L (8-78)
--- NOTE | 2020-03-14 16:06 | HO.PSYCHPN ---
Subjective Subjective Date of Service: 03/14/20 Reason For Visit: depression Interim History: Pt reports nausea, abdominal pain, mostly around RUQ. Gets worse after eating, and at night. He had gallbladder stones according to XR, accidental finding. Will ordered labs, monitor for any complications. Pt continues to endorse depressed mood, he is irritable at times. He reports intermittent suicidal ideation. He denies plan or intent. Mental Status Exam Mental Status Exam Narrative: Appearance: appears much older than stated age, in wheelchair, poor hygiene, in NAD Behavior: cooperative Psychomotor: no agitation or retardation noted Speech: clear, normal rate/rhythm/volume, spontaneous Mood: depressed Affect: congruent, blunted, irritable at times AH/VH: none Delusions: none Insight/judgment: poor x 2. Memory/cog: alert, oriented x 3. grossly intact to conversational testing. Diagnostics Vital Signs (24Hr): Vital Signs - 24 hr 03/13/20 18:00 03/13/20 20:47 03/14/20 05:55 Temperature 98.0 F 98.2 F Pulse Rate 92 92 82 Respiratory Rate 18 Blood Pressure 124/65 124/65 105/59 L Pulse Oximetry 97 03/14/20 08:45 Temperature Pulse Rate 82 Respiratory Rate Blood Pressure 105/59 L Pulse Oximetry Body Mass Index 34.5 Labs Results: 03/14/20 13:29 03/14/20 13:29 Labs: Laboratory Results - last 48 hr 03/12/20 03/12/20 03/13/20 17:25 20:22 05:46 WBC RBC Hgb Hct MCV MCH MCHC RDW Plt Count MPV Immature Gran % (Auto) Neut % (Auto) Lymph % (Auto) [place] % (Auto) Eos % (Auto) Baso % (Auto) Lymph # (Auto) [place] # (Auto) Eos # (Auto) Baso # (Auto) Abs Immat Gran (auto) Absolute Neuts (auto) Absolute Nucleated RBC Nucleated RBC % (auto) Sodium Potassium Chloride Carbon Dioxide Anion Gap BUN Creatinine Estim Creat Clear Calc Estimated GFR POC Glucose 249 H 192 H 168 H Random Glucose Calcium Total Bilirubin Direct Bilirubin GGT AST ALT Alkaline Phosphatase Total Protein Albumin Amylase Lipase 03/13/20 03/13/20 03/13/20 11:34 16:52 20:12 WBC RBC Hgb Hct MCV MCH MCHC RDW Plt Count MPV Immature Gran % (Auto) Neut % (Auto) Lymph % (Auto) [place] % (Auto) Eos % (Auto) Baso % (Auto) Lymph # (Auto) [place] # (Auto) Eos # (Auto) Baso # (Auto) Abs Immat Gran (auto) Absolute Neuts (auto) Absolute Nucleated RBC Nucleated RBC % (auto) Sodium Potassium Chloride Carbon Dioxide Anion Gap BUN Creatinine Estim Creat Clear Calc Estimated GFR POC Glucose 182 H 217 H 317 H Random Glucose Calcium Total Bilirubin Direct Bilirubin GGT AST ALT Alkaline Phosphatase Total Protein Albumin Amylase Lipase 03/14/20 03/14/20 03/14/20 06:43 07:49 12:01 WBC RBC Hgb Hct MCV MCH MCHC RDW Plt Count MPV Immature Gran % (Auto) Neut % (Auto) Lymph % (Auto) [place] % (Auto) Eos % (Auto) Baso % (Auto) Lymph # (Auto) [place] # (Auto) Eos # (Auto) Baso # (Auto) Abs Immat Gran (auto) Absolute Neuts (auto) Absolute Nucleated RBC Nucleated RBC % (auto) Sodium Potassium Chloride Carbon Dioxide Anion Gap BUN Creatinine 0.94 Estim Creat Clear Calc 104.7 Estimated GFR > 60 POC Glucose 176 H 166 H Random Glucose Calcium Total Bilirubin Direct Bilirubin GGT AST ALT Alkaline Phosphatase Total Protein Albumin Amylase Lipase 03/14/20 03/14/20 03/14/20 13:29 13:29 13:29 WBC 9.3 RBC 4.35 L Hgb 12.3 L Hct 38.7 L MCV 89.0 MCH 28.3 MCHC 31.8 RDW 13.2 Plt Count 369 D MPV 9.9 Immature Gran % (Auto) 0.2 Neut % (Auto) 67.1 Lymph % (Auto) 24.2 [place] % (Auto) 6.2 Eos % (Auto) 1.8 Baso % (Auto) 0.5 Lymph # (Auto) 2.3 [place] # (Auto) 0.6 Eos # (Auto) 0.2 Baso # (Auto) 0.1 Abs Immat Gran (auto) 0.02 Absolute Neuts (auto) 6.2 Absolute Nucleated RBC 0.000 Nucleated RBC % (auto) 0.0 Sodium 139 Potassium 4.8 Chloride 104 Carbon Dioxide 25 Anion Gap 15 BUN 32 H Creatinine 0.97 Estim Creat Clear Calc 101.5 Estimated GFR > 60 POC Glucose Random Glucose 161 H D Calcium 9.4 D Total Bilirubin 0.5 Direct Bilirubin GGT AST 18 D ALT 28 Alkaline Phosphatase 103 D Total Protein 6.7 Albumin 3.7 Amylase 70 Lipase 03/14/20 03/14/20 13:29 13:29 WBC RBC Hgb Hct MCV MCH MCHC RDW Plt Count MPV Immature Gran % (Auto) Neut % (Auto) Lymph % (Auto) [place] % (Auto) Eos % (Auto) Baso % (Auto) Lymph # (Auto) [place] # (Auto) Eos # (Auto) Baso # (Auto) Abs Immat Gran (auto) Absolute Neuts (auto) Absolute Nucleated RBC Nucleated RBC % (auto) Sodium Potassium Chloride Carbon Dioxide Anion Gap BUN Creatinine Estim Creat Clear Calc Estimated GFR POC Glucose Random Glucose Calcium Total Bilirubin 0.5 Direct Bilirubin 0.2 GGT 42 AST 17 ALT 29 Alkaline Phosphatase 103 Total Protein 6.8 Albumin 3.7 Amylase Lipase 122 H Medications Medications Current Medications Generic Name Dose Route Start Last Admin Trade Name Freq PRN Reason Stop Dose Admin Acetaminophen 650 mg 03/07/20 19:22 03/14/20 14:03 Acetaminophen 325 Mg Tablet PO 650 mg Q6H PRN Administration Headache/Pain Mild Scale (1-3) Al Hydroxide/Mg Hydroxide 30 ml 03/07/20 19:22 03/11/20 00:50 Magnesium Hydrox/Alum Hydrox 30 Ml Oral.Susp PO 30 ml Q6H PRN Administration Heartburn/Nausea Albuterol Sulfate 2 puff 03/07/20 19:22 03/12/20 00:38 Albuterol Sulfate 90 Mcg 8 Gm Inhaler INHALE 2 puff Q4H PRN Administration Shortness Of Breath Atorvastatin Calcium 80 mg 03/07/20 21:00 03/13/20 20:49 Atorvastatin Calcium 80 Mg Tablet PO 80 mg BEDTIME VISHNU Administration Benzocaine 1 lozenge 03/08/20 19:12 03/10/20 21:27 Throat Lozenge, Medicated Lozenge MUCOUS MEM 1 lozenge Q2H PRN Administration Sore Throat Calcium Carbonate 750 mg 03/14/20 11:42 03/14/20 11:59 Calcium Carbonate 750 Mg Tab.Chew PO 750 mg Q4H PRN Administration Dyspepsia Carvedilol 3.125 mg 03/07/20 21:00 03/14/20 08:45 Carvedilol 3.125 Mg Tablet PO 3.125 mg BID VISHNU Administration Protocol Clopidogrel Bisulfate 75 mg 03/08/20 09:00 03/14/20 08:45 Clopidogrel Bisulfate 75 Mg Tablet PO 75 mg DAILY VISHNU Administration Docusate Sodium 100 mg 03/07/20 19:22 Docusate Sodium 100 Mg Capsule PO DAILY PRN Constipation Guaifenesin 5 ml 03/08/20 19:12 03/11/20 09:13 Guaifenesin 100 Mg/5 Ml Liquid PO 5 ml Q4H PRN Administration Cough Guaifenesin 600 mg 03/08/20 21:00 03/14/20 08:45 Guaifenesin [place] 600 Mg Tab.Er.12h PO 600 mg BID VISHNU Administration Hydroxyzine HCl 25 mg 03/08/20 15:21 03/14/20 09:40 Hydroxyzine Hcl 25 Mg Tablet PO 25 mg Q6H PRN Administration anxiety/sleep Insulin Glargine 40 unit 03/07/20 21:00 03/13/20 20:48 Insulin Glargine,Hum.Rec.Anlog 100 Unit/Ml 10 Ml Vial SUBCUT 40 unit BEDTIME VISHNU Administration Insulin Human Lispro 0 unit 03/07/20 21:00 03/14/20 14:09 Insulin Lispro 100 Unit/Ml 3 Ml Vial SUBCUT 2 unit QIDACHS [facility] Administration Protocol Lorazepam 0.5 mg 03/14/20 15:24 Lorazepam 0.5 Mg Tablet PO Q4H PRN Anxiety Magnesium Hydroxide 30 ml 03/07/20 19:22 Milk Of Magnesia 30 Ml Oral.Susp PO DAILY PRN Constipation Metformin HCl 1,000 mg 03/07/20 21:00 03/14/20 08:45 Metformin Hcl 1,000 Mg Tablet PO 1,000 mg BID VISHNU Administration Mirtazapine 7.5 mg 03/08/20 21:00 03/13/20 20:47 Mirtazapine 7.5 Mg Tablet PO 7.5 mg BEDTIME VISHNU Administration Pharmacy Consult 1 each 03/07/20 19:22 Consult Rx Perform Med Rec MISCELLANE ONCE PRN Consult order Polyethylene Glycol 17 gm 03/08/20 09:00 03/14/20 09:24 Polyethylene Glycol 3350 17 Gm Powd.Pack PO Not Given DAILY VISHNU Sertraline HCl 75 mg 03/09/20 09:00 03/14/20 08:45 Sertraline Hcl 25 Mg Tablet PO 75 mg DAILY VISHNU Administration Valsartan 80 mg 03/08/20 09:00 03/14/20 08:45 Valsartan 80 Mg Tablet PO 80 mg DAILY VISHNU Administration Protocol Allergies Allergies Allergy/AdvReac Type Severity Reaction Status Date / Time levofloxacin [From Levaquin] AdvReac Rash Verified 03/05/20 11:45 morphine AdvReac Vomiting Verified 03/05/20 11:45 Penicillins AdvReac Rash Verified 03/05/20 11:45 Assessment & Plan Assessment & Plan (1) MDD (major depressive disorder), recurrent episode, severe: Status: Acute Code(s): F33.2 - Major depressive disorder, recurrent severe without psychotic features Assessment and Plan: 1. continue sertraline to 75 mg po daily 2. remeron 7,5mg po qhs for sleep. (2) Cocaine abuse: Status: Acute Code(s): F14.10 - Cocaine abuse, uncomplicated Assessment and Plan: 1. consider referral for substance use treatment program. Greater than 50% of the session was spent on counseling and/or coordination of care Reason for contiued inpatient stay Substantial Risk for: harm to self
[2020-03-14 16:55] LABS: Glucose, Whole Blood 168 mg/dL (60-115)
[2020-03-14 20:43] LABS: Glucose, Whole Blood 300 mg/dL (60-115)
[2020-03-14] MEDS: Insulin Glargine,Hum.rec.anlog 100 UNIT/ML 10 ML VIAL 40 UNIT SUBCUT (20:55)
[2020-03-14 20:56] VITALS: BP 105/57; PULSE 77
[2020-03-14] MEDS: Atorvastatin Calcium 80 MG TABLET PO (20:56)
[2020-03-14] MEDS: LORazepam 0.5 MG TABLET PO (20:56)
[2020-03-14] MEDS: Mirtazapine 7.5 MG TABLET PO (20:56)
--- NOTE | 2020-03-15 | US_ITS ---
EXAMINATION: US ABDOMEN COMPLETE CLINICAL INFORMATION: Gallstone/right upper quadrant pain.. COMPARISON: CT scan of the abdomen and pelvis dated 03/05/2020. TECHNIQUE: Real-time imaging of the abdominal viscera. FINDINGS: Evaluation is significantly limited due to patient's body habitus and bowel gas. PANCREAS: Not visualized due to shadowing by overlying bowel gas. ABDOMINAL AORTA: The proximal, mid, and distal segments are normal in caliber. INFERIOR VENA CAVA: Visualized portions are normal. LIVER: Normal. The liver is normal in size. The liver contour is normal. Parenchymal echogenicity is normal. No focal hepatic lesion. There is no intrahepatic biliary duct dilatation seen. GALLBLADDER: The subtle layering hyperdensity seen on CT scan in the gallbladder neck is not appreciated on this limited exam. The gallbladder is physiologically distended without definite evidence of stones, sludge, polyps, wall thickening or pericholecystic fluid. COMMON BILE DUCT: Normal in caliber measuring 0.5 cm in diameter. RIGHT KIDNEY: Normal. No hydronephrosis. No renal calculi or focal parenchymal lesions. The kidney measures 11.1 cm in maximum dimension. LEFT KIDNEY: Normal. No hydronephrosis. No renal calculi or focal parenchymal lesions. The kidney measures 12.1 cm in maximum dimension. SPLEEN: Normal. The spleen measures 10.2 cm in maximum dimension. FREE FLUID: None. US/US abdomen complete IMPRESSION: Limited study. CT demonstrated tiny gravel/stones in the gallbladder neck are not appreciated on this exam. No obvious gallbladder wall thickening or pericholecystic fluid appreciated to suspect acute inflammation. Close clinical correlation requested.
[2020-03-15] MEDS: hydrOXYzine HCL 25 MG TABLET PO ×2 (04:23→19:12)
[2020-03-15] MEDS: LORazepam 0.5 MG TABLET PO ×5 (04:23→23:19)
[2020-03-15 04:30] VITALS: BP 144/77; PULSE 76; RESP 18; TEMP 36.3; O2SAT 100
[2020-03-15 04:31] LABS: Glucose, Whole Blood 168 mg/dL (60-115)
[2020-03-15] MEDS: Insulin Lispro 100 UNIT/ML 3 ML VIAL SUBCUT ×4 (08:52→20:57)
[2020-03-15] MEDS: polyethylene glycoL 3350 17 GM POWD.PACK PO (08:53)
[2020-03-15 08:54] VITALS: BP 144/77; PULSE 76
[2020-03-15] MEDS: metFORMIN HCl 1,000 MG TABLET 1000 MG PO ×2 (08:54→20:59)
[2020-03-15] MEDS: guaiFENesin LA 600 MG TAB.ER.12H PO ×2 (08:54→21:00)
[2020-03-15] MEDS: carvediloL 3.125 MG TABLET PO ×2 (08:54→21:01)
[2020-03-15] MEDS: Valsartan 80 MG TABLET PO (08:54)
[2020-03-15] MEDS: Clopidogrel Bisulfate 75 MG TABLET PO (08:54)
[2020-03-15] MEDS: Sertraline HCL 25 MG TABLET 75 MG PO (08:54)
--- NOTE | 2020-03-15 09:11 | HO.PSYCHPN ---
Subjective Subjective Date of Service: 03/15/20 Reason For Visit: depression Interim History: Pt continues to endorse depressed mood, he is irritable at times. He reports intermittent suicidal ideation. He denies plan or intent. Pt report RUQ pain, epigastric pain and CP. c/o constipation Im straining a lot . US negative. Lipase mildly elevated. Will trend. Add Mg Cit and scheduled Colace. Pt encouraged to eat salad/prune juice /etc. Mental Status Exam Mental Status Exam Narrative: Appearance: appears much older than stated age, in wheelchair, poor hygiene, in NAD Behavior: cooperative Psychomotor: no agitation or retardation noted Speech: clear, normal rate/rhythm/volume, spontaneous Mood: depressed Affect: congruent, blunted, irritable at times AH/VH: none Delusions: none Insight/judgment: poor x 2. Memory/cog: alert, oriented x 3. grossly intact to conversational testing. Diagnostics Vital Signs (24Hr): Vital Signs - 24 hr 03/14/20 20:56 03/15/20 04:30 03/15/20 08:54 Temperature 97.3 F Pulse Rate 77 76 76 Respiratory Rate 18 Blood Pressure 105/57 L 144/77 H 144/77 H Pulse Oximetry 100 Body Mass Index 34.5 Labs Results: 03/14/20 13:29 03/14/20 13:29 Labs: Laboratory Results - last 48 hr 03/13/20 03/13/20 03/13/20 11:34 16:52 20:12 WBC RBC Hgb Hct MCV MCH MCHC RDW Plt Count MPV Immature Gran % (Auto) Neut % (Auto) Lymph % (Auto) [place] % (Auto) Eos % (Auto) Baso % (Auto) Lymph # (Auto) [place] # (Auto) Eos # (Auto) Baso # (Auto) Abs Immat Gran (auto) Absolute Neuts (auto) Absolute Nucleated RBC Nucleated RBC % (auto) Sodium Potassium Chloride Carbon Dioxide Anion Gap BUN Creatinine Estim Creat Clear Calc Estimated GFR POC Glucose 182 H 217 H 317 H Random Glucose Calcium Total Bilirubin Direct Bilirubin GGT AST ALT Alkaline Phosphatase Total Protein Albumin Amylase Lipase 03/14/20 03/14/20 03/14/20 06:43 07:49 12:01 WBC RBC Hgb Hct MCV MCH MCHC RDW Plt Count MPV Immature Gran % (Auto) Neut % (Auto) Lymph % (Auto) [place] % (Auto) Eos % (Auto) Baso % (Auto) Lymph # (Auto) [place] # (Auto) Eos # (Auto) Baso # (Auto) Abs Immat Gran (auto) Absolute Neuts (auto) Absolute Nucleated RBC Nucleated RBC % (auto) Sodium Potassium Chloride Carbon Dioxide Anion Gap BUN Creatinine 0.94 Estim Creat Clear Calc 104.7 Estimated GFR > 60 POC Glucose 176 H 166 H Random Glucose Calcium Total Bilirubin Direct Bilirubin GGT AST ALT Alkaline Phosphatase Total Protein Albumin Amylase Lipase 03/14/20 03/14/20 03/14/20 13:29 13:29 13:29 WBC 9.3 RBC 4.35 L Hgb 12.3 L Hct 38.7 L MCV 89.0 MCH 28.3 MCHC 31.8 RDW 13.2 Plt Count 369 D MPV 9.9 Immature Gran % (Auto) 0.2 Neut % (Auto) 67.1 Lymph % (Auto) 24.2 [place] % (Auto) 6.2 Eos % (Auto) 1.8 Baso % (Auto) 0.5 Lymph # (Auto) 2.3 [place] # (Auto) 0.6 Eos # (Auto) 0.2 Baso # (Auto) 0.1 Abs Immat Gran (auto) 0.02 Absolute Neuts (auto) 6.2 Absolute Nucleated RBC 0.000 Nucleated RBC % (auto) 0.0 Sodium 139 Potassium 4.8 Chloride 104 Carbon Dioxide 25 Anion Gap 15 BUN 32 H Creatinine 0.97 Estim Creat Clear Calc 101.5 Estimated GFR > 60 POC Glucose Random Glucose 161 H D Calcium 9.4 D Total Bilirubin 0.5 Direct Bilirubin GGT AST 18 D ALT 28 Alkaline Phosphatase 103 D Total Protein 6.7 Albumin 3.7 Amylase 70 Lipase 03/14/20 03/14/20 03/14/20 13:29 13:29 16:50 WBC RBC Hgb Hct MCV MCH MCHC RDW Plt Count MPV Immature Gran % (Auto) Neut % (Auto) Lymph % (Auto) [place] % (Auto) Eos % (Auto) Baso % (Auto) Lymph # (Auto) [place] # (Auto) Eos # (Auto) Baso # (Auto) Abs Immat Gran (auto) Absolute Neuts (auto) Absolute Nucleated RBC Nucleated RBC % (auto) Sodium Potassium Chloride Carbon Dioxide Anion Gap BUN Creatinine Estim Creat Clear Calc Estimated GFR POC Glucose 168 H Random Glucose Calcium Total Bilirubin 0.5 Direct Bilirubin 0.2 GGT 42 AST 17 ALT 29 Alkaline Phosphatase 103 Total Protein 6.8 Albumin 3.7 Amylase Lipase 122 H 03/14/20 03/15/20 20:39 04:27 WBC RBC Hgb Hct MCV MCH MCHC RDW Plt Count MPV Immature Gran % (Auto) Neut % (Auto) Lymph % (Auto) [place] % (Auto) Eos % (Auto) Baso % (Auto) Lymph # (Auto) [place] # (Auto) Eos # (Auto) Baso # (Auto) Abs Immat Gran (auto) Absolute Neuts (auto) Absolute Nucleated RBC Nucleated RBC % (auto) Sodium Potassium Chloride Carbon Dioxide Anion Gap BUN Creatinine Estim Creat Clear Calc Estimated GFR POC Glucose 300 H 168 H Random Glucose Calcium Total Bilirubin Direct Bilirubin GGT AST ALT Alkaline Phosphatase Total Protein Albumin Amylase Lipase Medications Medications Current Medications Generic Name Dose Route Start Last Admin Trade Name Freq PRN Reason Stop Dose Admin Acetaminophen 650 mg 03/07/20 19:22 03/14/20 14:03 Acetaminophen 325 Mg Tablet PO 650 mg Q6H PRN Administration Headache/Pain Mild Scale (1-3) Al Hydroxide/Mg Hydroxide 30 ml 03/07/20 19:22 03/11/20 00:50 Magnesium Hydrox/Alum Hydrox 30 Ml Oral.Susp PO 30 ml Q6H PRN Administration Heartburn/Nausea Albuterol Sulfate 2 puff 03/07/20 19:22 03/12/20 00:38 Albuterol Sulfate 90 Mcg 8 Gm Inhaler INHALE 2 puff Q4H PRN Administration Shortness Of Breath Atorvastatin Calcium 80 mg 03/07/20 21:00 03/14/20 20:56 Atorvastatin Calcium 80 Mg Tablet PO 80 mg BEDTIME VISHNU Administration Benzocaine 1 lozenge 03/08/20 19:12 03/10/20 21:27 Throat Lozenge, Medicated Lozenge MUCOUS MEM 1 lozenge Q2H PRN Administration Sore Throat Calcium Carbonate 750 mg 03/14/20 11:42 03/14/20 11:59 Calcium Carbonate 750 Mg Tab.Chew PO 750 mg Q4H PRN Administration Dyspepsia Carvedilol 3.125 mg 03/07/20 21:00 03/15/20 08:54 Carvedilol 3.125 Mg Tablet PO 3.125 mg BID VISHNU Administration Protocol Clopidogrel Bisulfate 75 mg 03/08/20 09:00 03/15/20 08:54 Clopidogrel Bisulfate 75 Mg Tablet PO 75 mg DAILY VISHNU Administration Docusate Sodium 100 mg 03/07/20 19:22 Docusate Sodium 100 Mg Capsule PO DAILY PRN Constipation Guaifenesin 5 ml 03/08/20 19:12 03/11/20 09:13 Guaifenesin 100 Mg/5 Ml Liquid PO 5 ml Q4H PRN Administration Cough Guaifenesin 600 mg 03/08/20 21:00 03/15/20 08:54 Guaifenesin [place] 600 Mg Tab.Er.12h PO 600 mg BID VISHNU Administration Hydroxyzine HCl 25 mg 03/08/20 15:21 03/15/20 04:23 Hydroxyzine Hcl 25 Mg Tablet PO 25 mg Q6H PRN Administration anxiety/sleep Insulin Glargine 40 unit 03/07/20 21:00 03/14/20 20:55 Insulin Glargine,Hum.Rec.Anlog 100 Unit/Ml 10 Ml Vial SUBCUT 40 unit BEDTIME VISHNU Administration Insulin Human Lispro 0 unit 03/07/20 21:00 03/15/20 08:52 Insulin Lispro 100 Unit/Ml 3 Ml Vial SUBCUT 2 unit QIDACHS VISHNU Administration Protocol Lorazepam 0.5 mg 03/14/20 15:24 03/15/20 04:23 Lorazepam 0.5 Mg Tablet PO 0.5 mg Q4H PRN Administration Anxiety Magnesium Hydroxide 30 ml 03/07/20 19:22 Milk Of Magnesia 30 Ml Oral.Susp PO DAILY PRN Constipation Metformin HCl 1,000 mg 03/07/20 21:00 03/15/20 08:54 Metformin Hcl 1,000 Mg Tablet PO 1,000 mg BID VISHNU Administration Mirtazapine 7.5 mg 03/08/20 21:00 03/14/20 20:56 Mirtazapine 7.5 Mg Tablet PO 7.5 mg BEDTIME VISHNU Administration Pharmacy Consult 1 each 03/07/20 19:22 Consult Rx Perform Med Rec MISCELLANE ONCE PRN Consult order Polyethylene Glycol 17 gm 03/08/20 09:00 03/15/20 08:53 Polyethylene Glycol 3350 17 Gm Powd.Pack PO 17 gm DAILY VISHNU Administration Sertraline HCl 75 mg 03/09/20 09:00 03/15/20 08:54 Sertraline Hcl 25 Mg Tablet PO 75 mg DAILY VISHNU Administration Valsartan 80 mg 03/08/20 09:00 03/15/20 08:54 Valsartan 80 Mg Tablet PO 80 mg DAILY VISHNU Administration Protocol Allergies Allergies Allergy/AdvReac Type Severity Reaction Status Date / Time levofloxacin [From Levaquin] AdvReac Rash Verified 03/05/20 11:45 morphine AdvReac Vomiting Verified 03/05/20 11:45 Penicillins AdvReac Rash Verified 03/05/20 11:45 Assessment & Plan Assessment & Plan (1) MDD (major depressive disorder), recurrent episode, severe: Status: Acute Code(s): F33.2 - Major depressive disorder, recurrent severe without psychotic features (2) Cocaine abuse: Status: Resolved Code(s): F14.10 - Cocaine abuse, uncomplicated Assessment and Plan: 1. continue sertraline to 75 mg po daily 2. remeron 7,5mg po qhs for sleep. 1. consider referral for substance use treatment program. Add Mg Cit and bowel regimen Check Lipase Greater than 50% of the session was spent on counseling and/or coordination of care Reason for contiued inpatient stay Substantial Risk for: harm to self
[2020-03-15 11:51] LABS: Glucose, Whole Blood 214 mg/dL (60-115)
[2020-03-15] MEDS: Magnesium Citrate 300 ML SOLUTION 150 ML PO (11:59)
[2020-03-15] MEDS: Docusate Sodium 100 MG CAPSULE PO (19:12)
[2020-03-15] MEDS: Albuterol Sulfate 90 MCG 8 GM INHALER 2 PUFF INHALE (19:14)
[2020-03-15] MEDS: Calcium Carbonate 750 MG TAB.CHEW PO (19:18)
[2020-03-15 19:40] VITALS: BP 119/60; PULSE 92; TEMP 36.2
[2020-03-15] MEDS: Insulin Glargine,Hum.rec.anlog 100 UNIT/ML 10 ML VIAL 40 UNIT SUBCUT (20:59)
[2020-03-15] MEDS: Atorvastatin Calcium 80 MG TABLET PO (21:00)
[2020-03-15] MEDS: Mirtazapine 7.5 MG TABLET PO (21:00)
[2020-03-15 21:01] VITALS: BP 119/60; PULSE 92
[2020-03-15 22:14] LABS: Glucose, Whole Blood 247 mg/dL (60-115)
[2020-03-15 22:14] LABS: Glucose, Whole Blood 207 mg/dL (60-115)
[2020-03-16] MEDS: LORazepam 0.5 MG TABLET PO ×4 (04:29→21:57)
[2020-03-16] MEDS: hydrOXYzine HCL 25 MG TABLET PO ×2 (04:29→21:57)
[2020-03-16 04:39] LABS: Glucose, Whole Blood 160 mg/dL (60-115)
[2020-03-16 06:00] VITALS: BP 127/73; PULSE 75; RESP 16; TEMP 36.8
--- NOTE | 2020-03-16 08:06 | P.PNPSI_ITS ---
Subjective Subjective Date of Service: 03/16/20 Reason For Visit: depression Interim History: Pt continues to endorse depressed mood, he is irritable at times. He reports intermittent suicidal ideation. He denies plan or intent. c/o ongoing constipation. Try Mg Citrate and Dulcolax. Much somatic focus. Reports if I act out I will get what I want (referring to dose of lorazepam) Lipase improved Mental Status Exam Mental Status Exam Narrative: Appearance: appears much older than stated age, in wheelchair, poor hygiene, in NAD Behavior: cooperative Psychomotor: no agitation or retardation noted Speech: clear, normal rate/rhythm/volume, spontaneous Mood: depressed Affect: congruent, blunted, irritable at times AH/VH: none Delusions: none Insight/judgment: poor x 2. Memory/cog: alert, oriented x 3. grossly intact to conversational testing. Diagnostics Vital Signs (24Hr): Vital Signs - 24 hr 03/15/20 08:54 03/15/20 19:40 03/15/20 21:01 Temperature 97.2 F Pulse Rate 76 92 92 Blood Pressure 144/77 H 119/60 119/60 Body Mass Index 34.5 Labs Results: 03/14/20 13:29 03/16/20 08:18 Labs: Laboratory Results - last 48 hr 03/14/20 03/14/20 03/14/20 07:49 12:01 13:29 WBC 9.3 RBC 4.35 L Hgb 12.3 L Hct 38.7 L MCV 89.0 MCH 28.3 MCHC 31.8 RDW 13.2 Plt Count 369 D MPV 9.9 Immature Gran % (Auto) 0.2 Neut % (Auto) 67.1 Lymph % (Auto) 24.2 [place] % (Auto) 6.2 Eos % (Auto) 1.8 Baso % (Auto) 0.5 Lymph # (Auto) 2.3 [place] # (Auto) 0.6 Eos # (Auto) 0.2 Baso # (Auto) 0.1 Abs Immat Gran (auto) 0.02 Absolute Neuts (auto) 6.2 Absolute Nucleated RBC 0.000 Nucleated RBC % (auto) 0.0 Sodium Potassium Chloride Carbon Dioxide Anion Gap BUN Creatinine 0.94 Estim Creat Clear Calc 104.7 Estimated GFR > 60 POC Glucose 166 H Random Glucose Calcium Total Bilirubin Direct Bilirubin GGT AST ALT Alkaline Phosphatase Total Protein Albumin Amylase Lipase 03/14/20 03/14/20 03/14/20 13:29 13:29 13:29 WBC RBC Hgb Hct MCV MCH MCHC RDW Plt Count MPV Immature Gran % (Auto) Neut % (Auto) Lymph % (Auto) [place] % (Auto) Eos % (Auto) Baso % (Auto) Lymph # (Auto) [place] # (Auto) Eos # (Auto) Baso # (Auto) Abs Immat Gran (auto) Absolute Neuts (auto) Absolute Nucleated RBC Nucleated RBC % (auto) Sodium 139 Potassium 4.8 Chloride 104 Carbon Dioxide 25 Anion Gap 15 BUN 32 H Creatinine 0.97 Estim Creat Clear Calc 101.5 Estimated GFR > 60 POC Glucose Random Glucose 161 H D Calcium 9.4 D Total Bilirubin 0.5 0.5 Direct Bilirubin 0.2 GGT AST 18 D 17 ALT 28 29 Alkaline Phosphatase 103 D 103 Total Protein 6.7 6.8 Albumin 3.7 3.7 Amylase 70 Lipase 122 H 03/14/20 03/14/20 03/14/20 13:29 16:50 20:39 WBC RBC Hgb Hct MCV MCH MCHC RDW Plt Count MPV Immature Gran % (Auto) Neut % (Auto) Lymph % (Auto) [place] % (Auto) Eos % (Auto) Baso % (Auto) Lymph # (Auto) [place] # (Auto) Eos # (Auto) Baso # (Auto) Abs Immat Gran (auto) Absolute Neuts (auto) Absolute Nucleated RBC Nucleated RBC % (auto) Sodium Potassium Chloride Carbon Dioxide Anion Gap BUN Creatinine Estim Creat Clear Calc Estimated GFR POC Glucose 168 H 300 H Random Glucose Calcium Total Bilirubin Direct Bilirubin GGT 42 AST ALT Alkaline Phosphatase Total Protein Albumin Amylase Lipase 03/15/20 03/15/20 03/15/20 04:27 11:47 16:32 WBC RBC Hgb Hct MCV MCH MCHC RDW Plt Count MPV Immature Gran % (Auto) Neut % (Auto) Lymph % (Auto) [place] % (Auto) Eos % (Auto) Baso % (Auto) Lymph # (Auto) [place] # (Auto) Eos # (Auto) Baso # (Auto) Abs Immat Gran (auto) Absolute Neuts (auto) Absolute Nucleated RBC Nucleated RBC % (auto) Sodium Potassium Chloride Carbon Dioxide Anion Gap BUN Creatinine Estim Creat Clear Calc Estimated GFR POC Glucose 168 H 214 H 207 H Random Glucose Calcium Total Bilirubin Direct Bilirubin GGT AST ALT Alkaline Phosphatase Total Protein Albumin Amylase Lipase 03/15/20 03/16/20 20:38 04:36 WBC RBC Hgb Hct MCV MCH MCHC RDW Plt Count MPV Immature Gran % (Auto) Neut % (Auto) Lymph % (Auto) [place] % (Auto) Eos % (Auto) Baso % (Auto) Lymph # (Auto) [place] # (Auto) Eos # (Auto) Baso # (Auto) Abs Immat Gran (auto) Absolute Neuts (auto) Absolute Nucleated RBC Nucleated RBC % (auto) Sodium Potassium Chloride Carbon Dioxide Anion Gap BUN Creatinine Estim Creat Clear Calc Estimated GFR POC Glucose 247 H 160 H Random Glucose Calcium Total Bilirubin Direct Bilirubin GGT AST ALT Alkaline Phosphatase Total Protein Albumin Amylase Lipase Imaging Radiology Impressions: ITS Impressions Abdomen Ultrasound 03/15/20 00:00 IMPRESSION: Limited study. CT demonstrated tiny gravel/stones in the gallbladder neck are not appreciated on this exam. No obvious gallbladder wall thickening or pericholecystic fluid appreciated to suspect acute inflammation. Close clinical correlation requested. Medications Medications Current Medications Generic Name Dose Route Start Last Admin Trade Name Freq PRN Reason Stop Dose Admin Acetaminophen 650 mg 03/07/20 19:22 03/14/20 14:03 Acetaminophen 325 Mg Tablet PO 650 mg Q6H PRN Administration Headache/Pain Mild Scale (1-3) Al Hydroxide/Mg Hydroxide 30 ml 03/07/20 19:22 03/11/20 00:50 Magnesium Hydrox/Alum Hydrox 30 Ml Oral.Susp PO 30 ml Q6H PRN Administration Heartburn/Nausea Albuterol Sulfate 2 puff 03/07/20 19:22 03/15/20 19:14 Albuterol Sulfate 90 Mcg 8 Gm Inhaler INHALE 2 puff Q4H PRN Administration Shortness Of Breath Atorvastatin Calcium 80 mg 03/07/20 21:00 03/15/20 21:00 Atorvastatin Calcium 80 Mg Tablet PO 80 mg BEDTIME VISHNU Administration Benzocaine 1 lozenge 03/08/20 19:12 03/10/20 21:27 Throat Lozenge, Medicated Lozenge MUCOUS MEM 1 lozenge Q2H PRN Administration Sore Throat Calcium Carbonate 750 mg 03/14/20 11:42 03/15/20 19:18 Calcium Carbonate 750 Mg Tab.Chew PO 750 mg Q4H PRN Administration Dyspepsia Carvedilol 3.125 mg 03/07/20 21:00 03/15/20 21:01 Carvedilol 3.125 Mg Tablet PO 3.125 mg BID VISHNU Administration Protocol Clopidogrel Bisulfate 75 mg 03/08/20 09:00 03/15/20 08:54 Clopidogrel Bisulfate 75 Mg Tablet PO 75 mg DAILY VISHNU Administration Docusate Sodium 100 mg 03/15/20 21:00 03/15/20 19:12 Docusate Sodium 100 Mg Capsule PO 100 mg BID VISHNU Administration Guaifenesin 5 ml 03/08/20 19:12 03/11/20 09:13 Guaifenesin 100 Mg/5 Ml Liquid PO 5 ml Q4H PRN Administration Cough Guaifenesin 600 mg 03/08/20 21:00 03/15/20 21:00 Guaifenesin La 600 Mg Tab.Er.12h PO 600 mg BID VISHNU Administration Hydroxyzine HCl 25 mg 03/08/20 15:21 03/16/20 04:29 Hydroxyzine Hcl 25 Mg Tablet PO 25 mg Q6H PRN Administration anxiety/sleep Insulin Glargine 40 unit 03/07/20 21:00 03/15/20 20:59 Insulin Glargine,Hum.Rec.Anlog 100 Unit/Ml 10 Ml Vial SUBCUT 40 unit BEDTIME VISHNU Administration Insulin Human Lispro 0 unit 03/07/20 21:00 03/15/20 20:57 Insulin Lispro 100 Unit/Ml 3 Ml Vial SUBCUT 4 unit QIDACHS VISHNU Administration Protocol Lorazepam 0.5 mg 03/14/20 15:24 03/16/20 04:29 Lorazepam 0.5 Mg Tablet PO 0.5 mg Q4H PRN Administration Anxiety Magnesium Hydroxide 30 ml 03/07/20 19:22 Milk Of Magnesia 30 Ml Oral.Susp PO DAILY PRN Constipation Metformin HCl 1,000 mg 03/07/20 21:00 03/15/20 20:59 Metformin Hcl 1,000 Mg Tablet PO 1,000 mg BID VISHNU Administration Mirtazapine 7.5 mg 03/08/20 21:00 03/15/20 21:00 Mirtazapine 7.5 Mg Tablet PO 7.5 mg BEDTIME VISHNU Administration Pharmacy Consult 1 each 03/07/20 19:22 Consult Rx Perform Med Rec MISCELLANE ONCE PRN Consult order Polyethylene Glycol 17 gm 03/08/20 09:00 03/15/20 08:53 Polyethylene Glycol 3350 17 Gm Powd.Pack PO 17 gm DAILY VISHNU Administration Sertraline HCl 75 mg 03/09/20 09:00 03/15/20 08:54 Sertraline Hcl 25 Mg Tablet PO 75 mg DAILY VISHNU Administration Valsartan 80 mg 03/08/20 09:00 03/15/20 08:54 Valsartan 80 Mg Tablet PO 80 mg DAILY VISHNU Administration Protocol Allergies Allergies Allergy/AdvReac Type Severity Reaction Status Date / Time levofloxacin [From Levaquin] AdvReac Rash Verified 03/05/20 11:45 morphine AdvReac Vomiting Verified 03/05/20 11:45 Penicillins AdvReac Rash Verified 03/05/20 11:45 Assessment & Plan Assessment & Plan (1) MDD (major depressive disorder), recurrent episode, severe: Status: Acute Code(s): F33.2 - Major depressive disorder, recurrent severe without psychotic features (2) Cocaine abuse: Status: Resolved Code(s): F14.10 - Cocaine abuse, uncomplicated Assessment and Plan: 1. continue sertraline to 75 mg po daily 2. remeron 7,5mg po qhs for sleep. 1. consider referral for substance use treatment program. Add Mg Cit and bowel regimen Greater than 50% of the session was spent on counseling and/or coordination of care Reason for contiued inpatient stay Substantial Risk for: harm to self
[2020-03-16 08:20] VITALS: BP 127/73; PULSE 75
[2020-03-16] MEDS: Sertraline HCL 25 MG TABLET 75 MG PO (08:20)
[2020-03-16] MEDS: Valsartan 80 MG TABLET PO (08:20)
[2020-03-16 08:21] VITALS: BP 127/73; PULSE 75
[2020-03-16] MEDS: Docusate Sodium 100 MG CAPSULE PO ×2 (08:21→21:57)
[2020-03-16] MEDS: guaiFENesin LA 600 MG TAB.ER.12H PO ×2 (08:21→21:57)
[2020-03-16] MEDS: Clopidogrel Bisulfate 75 MG TABLET PO (08:21)
[2020-03-16] MEDS: carvediloL 3.125 MG TABLET PO ×2 (08:21→21:54)
[2020-03-16] MEDS: metFORMIN HCl 1,000 MG TABLET 1000 MG PO ×2 (08:21→21:54)
[2020-03-16] MEDS: polyethylene glycoL 3350 17 GM POWD.PACK PO (08:22)
[2020-03-16] MEDS: Insulin Lispro 100 UNIT/ML 3 ML VIAL SUBCUT ×4 (08:37→22:09)
[2020-03-16 09:08] LABS: Creatinine Clr Calc Pharmacy 100.4; Estimated Glomerular Filt Rate > 60
[2020-03-16 09:11] LABS: Lipase 30 U/L (8-78)
[2020-03-16] MEDS: Magnesium Citrate 300 ML SOLUTION PO (10:33)
[2020-03-16 12:00] LABS: Glucose, Whole Blood 174 mg/dL (60-115)
[2020-03-16] MEDS: Calcium Carbonate 750 MG TAB.CHEW PO (15:09)
--- NOTE | 2020-03-16 15:13 | PC.NURSE ---
New order for 300ml Magnesium Citrate for constipation. Pt had 3 loose bowel movements. Pt states he feels less abdominal discomfort and feels much better .
[2020-03-16 16:47] VITALS: BP 111/59; PULSE 94; TEMP 36.5
[2020-03-16 17:57] LABS: Glucose, Whole Blood 305 mg/dL (60-115)
[2020-03-16] MEDS: Insulin Glargine,Hum.rec.anlog 100 UNIT/ML 10 ML VIAL 40 UNIT SUBCUT (21:46)
[2020-03-16 21:54] VITALS: BP 104/58; PULSE 94
[2020-03-16] MEDS: Mirtazapine 7.5 MG TABLET PO (21:57)
[2020-03-16] MEDS: Atorvastatin Calcium 80 MG TABLET PO (21:57)
[2020-03-16 22:21] LABS: Glucose, Whole Blood 332 mg/dL (60-115)
[2020-03-17] VITALS (7 sets, daily range): BP systolic 94–140; BP diastolic 55–78; PULSE 76–98; RESP 16–20; TEMP 36.4–36.9; O2SAT 96–99
[2020-03-17] MEDS: hydrOXYzine HCL 25 MG TABLET PO (04:36)
[2020-03-17] MEDS: LORazepam 0.5 MG TABLET PO ×3 (04:36→14:05)
[2020-03-17] MEDS: Valsartan 80 MG TABLET PO ×2 (08:54→09:02)
[2020-03-17] MEDS: metFORMIN HCl 1,000 MG TABLET 1000 MG PO ×2 (08:54→22:41)
[2020-03-17] MEDS: Sertraline HCL 25 MG TABLET 75 MG PO ×2 (08:54→09:01)
[2020-03-17] MEDS: Docusate Sodium 100 MG CAPSULE PO ×2 (08:55→22:41)
[2020-03-17] MEDS: guaiFENesin LA 600 MG TAB.ER.12H PO ×2 (08:55→22:41)
[2020-03-17] MEDS: Clopidogrel Bisulfate 75 MG TABLET PO (08:56)
[2020-03-17] MEDS: Insulin Lispro 100 UNIT/ML 3 ML VIAL SUBCUT ×4 (09:03→22:39)
[2020-03-17] MEDS: carvediloL 3.125 MG TABLET PO ×2 (09:04→22:42)
[2020-03-17] MEDS: Acetaminophen 325 MG TABLET 650 MG PO (09:12)
[2020-03-17 13:03] LABS: Glucose, Whole Blood 187 mg/dL (60-115)
[2020-03-17 13:03] LABS: Glucose, Whole Blood 215 mg/dL (60-115)
[2020-03-17] MEDS: Lactulose 20 GM/30 ML SOLUTION 10 GM PO ×2 (13:14→22:41)
[2020-03-17] MEDS: LORazepam 2 MG/ML VIAL IM (14:57)
[2020-03-17] MEDS: Benztropine Mesylate 2 MG/2 ML VIAL 1 MG IM (14:57)
[2020-03-17] MEDS: Haloperidol Lactate 5 MG/ML VIAL IM (14:57)
--- NOTE | 2020-03-17 15:46 | PC.NURSE ---
On the phone threatening his mother, Come on Ma,what you have done to me . During contact time pt verbalized his frustration with his Mother and Sister and felt if he were to go home soon he would Punch her in the face or maybe I would kill her .Impatient and upset his PRN med for anxiety was only 0.5 of Ativan after taking the med he walked down the jarrett and punched the glass window in the kitchen. Requested and received Haldol 5mg,Ativan 2mg and cogentin 1mg IM. Pt cooperative and contracted for safety,sat in the kitchen with staff. Right hand assessed,no swelling or ecchymosis noted at this time,declined ice to hand.
--- NOTE | 2020-03-17 16:40 | HO.PSYCHPN ---
Subjective Subjective Date of Service: 03/17/20 Reason For Visit: depression Interim History: Pt very upset because he does not have a place to go. Some of the referrals that he had talked with clinician are not options anymore as they can accommodate need of wheelchair. Pt increasingly more agitated when staff asking him to redirect as he was intrusive with staff when they were assisting another pt. Pt punched the window of cafeteria. Pt later calmed down and made reference about getting attention now. Pt was explained that these behavior could have legal repercussions. we did discuss starting trileptal for his irritability and mood, which he agreed. Mental Status Exam Mental Status Exam Narrative: Appearance: appears much older than stated age, in wheelchair, poor hygiene, in NAD Behavior: cooperative Psychomotor: no agitation or retardation noted Speech: clear, normal rate/rhythm/volume, spontaneous Mood: depressed Affect: congruent, blunted, irritable at times AH/VH: none Delusions: none Insight/judgment: poor x 2. Memory/cog: alert, oriented x 3. grossly intact to conversational testing. Diagnostics Vital Signs (24Hr): Vital Signs - 24 hr 03/16/20 16:47 03/16/20 21:54 03/17/20 04:35 Temperature 97.7 F 97.5 F Pulse Rate 94 94 76 Respiratory Rate 16 Blood Pressure 111/59 L 104/58 L 140/78 H Pulse Oximetry 99 03/17/20 08:54 03/17/20 09:02 03/17/20 09:04 Temperature Pulse Rate 76 76 76 Respiratory Rate Blood Pressure 140/78 H 140/78 H 140/78 H Pulse Oximetry 03/17/20 14:55 Temperature 98.4 F Pulse Rate 98 Respiratory Rate 20 Blood Pressure 136/72 Pulse Oximetry 96 Body Mass Index 34.5 Labs Results: 03/14/20 13:29 03/16/20 08:18 Labs: Laboratory Results - last 48 hr 03/15/20 03/15/20 03/16/20 16:32 20:38 04:36 Creatinine Estim Creat Clear Calc Estimated GFR POC Glucose 207 H 247 H 160 H Lipase 03/16/20 03/16/20 03/16/20 08:18 08:18 11:56 Creatinine 0.98 Estim Creat Clear Calc 100.4 Estimated GFR > 60 POC Glucose 174 H Lipase 30 03/16/20 03/16/20 03/17/20 16:56 21:40 04:41 Creatinine Estim Creat Clear Calc Estimated GFR POC Glucose 305 H 332 H 187 H Lipase 03/17/20 12:58 Creatinine Estim Creat Clear Calc Estimated GFR POC Glucose 215 H Lipase Imaging Radiology Impressions: ITS Impressions Abdomen Ultrasound 03/15/20 00:00 IMPRESSION: Limited study. CT demonstrated tiny gravel/stones in the gallbladder neck are not appreciated on this exam. No obvious gallbladder wall thickening or pericholecystic fluid appreciated to suspect acute inflammation. Close clinical correlation requested. Medications Medications Current Medications Generic Name Dose Route Start Last Admin Trade Name Freq PRN Reason Stop Dose Admin Acetaminophen 650 mg 03/07/20 19:22 03/17/20 09:12 Acetaminophen 325 Mg Tablet PO 650 mg Q6H PRN Administration Headache/Pain Mild Scale (1-3) Al Hydroxide/Mg Hydroxide 30 ml 03/07/20 19:22 03/11/20 00:50 Magnesium Hydrox/Alum Hydrox 30 Ml Oral.Susp PO 30 ml Q6H PRN Administration Heartburn/Nausea Albuterol Sulfate 2 puff 03/07/20 19:22 03/15/20 19:14 Albuterol Sulfate 90 Mcg 8 Gm Inhaler INHALE 2 puff Q4H PRN Administration Shortness Of Breath Atorvastatin Calcium 80 mg 03/07/20 21:00 03/16/20 21:57 Atorvastatin Calcium 80 Mg Tablet PO 80 mg BEDTIME VISHNU Administration Benzocaine 1 lozenge 03/08/20 19:12 03/10/20 21:27 Throat Lozenge, Medicated Lozenge MUCOUS MEM 1 lozenge Q2H PRN Administration Sore Throat Bisacodyl 10 mg 03/16/20 09:37 Bisacodyl 5 Mg Tablet.Dr PO DAILY PRN Constipation Calcium Carbonate 750 mg 03/14/20 11:42 03/16/20 15:09 Calcium Carbonate 750 Mg Tab.Chew PO 750 mg Q4H PRN Administration Dyspepsia Carvedilol 3.125 mg 03/07/20 21:00 03/17/20 09:04 Carvedilol 3.125 Mg Tablet PO 3.125 mg BID VISHNU Administration Protocol Clopidogrel Bisulfate 75 mg 03/08/20 09:00 03/17/20 08:56 Clopidogrel Bisulfate 75 Mg Tablet PO 75 mg DAILY VISHNU Administration Docusate Sodium 100 mg 03/15/20 21:00 03/17/20 08:55 Docusate Sodium 100 Mg Capsule PO 100 mg BID VISHNU Administration Guaifenesin 5 ml 03/08/20 19:12 03/11/20 09:13 Guaifenesin 100 Mg/5 Ml Liquid PO 5 ml Q4H PRN Administration Cough Guaifenesin 600 mg 03/08/20 21:00 03/17/20 08:55 Guaifenesin La 600 Mg Tab.Er.12h PO 600 mg BID VISHNU Administration Hydroxyzine HCl 25 mg 03/08/20 15:21 03/17/20 04:36 Hydroxyzine Hcl 25 Mg Tablet PO 25 mg Q6H PRN Administration anxiety/sleep Insulin Glargine 40 unit 03/07/20 21:00 03/16/20 21:46 Insulin Glargine,Hum.Rec.Anlog 100 Unit/Ml 10 Ml Vial SUBCUT 40 unit BEDTIME VISHNU Administration Insulin Human Lispro 0 unit 03/07/20 21:00 03/17/20 13:16 Insulin Lispro 100 Unit/Ml 3 Ml Vial SUBCUT 4 unit QIDACHS VISHNU Administration Protocol Lactulose 10 gm 03/17/20 11:45 03/17/20 13:14 Lactulose 20 Gm/30 Ml Solution PO 10 gm BID VISHNU Administration Lorazepam 0.5 mg 03/14/20 15:24 03/17/20 14:05 Lorazepam 0.5 Mg Tablet PO 0.5 mg Q4H PRN Administration Anxiety Magnesium Hydroxide 30 ml 03/07/20 19:22 Milk Of Magnesia 30 Ml Oral.Susp PO DAILY PRN Constipation Metformin HCl 1,000 mg 03/07/20 21:00 03/17/20 08:54 Metformin Hcl 1,000 Mg Tablet PO 1,000 mg BID VISHNU Administration Mirtazapine 7.5 mg 03/08/20 21:00 03/16/20 21:57 Mirtazapine 7.5 Mg Tablet PO 7.5 mg BEDTIME VISHNU Administration Pharmacy Consult 1 each 03/07/20 19:22 Consult Rx Perform Med Rec MISCELLANE ONCE PRN Consult order Polyethylene Glycol 17 gm 03/08/20 09:00 03/17/20 09:04 Polyethylene Glycol 3350 17 Gm Powd.Pack PO Not Given DAILY VISHNU Sertraline HCl 75 mg 03/09/20 09:00 03/17/20 09:01 Sertraline Hcl 25 Mg Tablet PO 75 mg DAILY VISHNU Administration Valsartan 80 mg 03/08/20 09:00 03/17/20 09:02 Valsartan 80 Mg Tablet PO 80 mg DAILY VISHNU Administration Protocol Allergies Allergies Allergy/AdvReac Type Severity Reaction Status Date / Time levofloxacin [From Levaquin] AdvReac Rash Verified 03/05/20 11:45 morphine AdvReac Vomiting Verified 03/05/20 11:45 Penicillins AdvReac Rash Verified 03/05/20 11:45 Assessment & Plan Assessment & Plan (1) MDD (major depressive disorder), recurrent episode, severe: Status: Acute Code(s): F33.2 - Major depressive disorder, recurrent severe without psychotic features (2) Cocaine abuse: Status: Resolved Code(s): F14.10 - Cocaine abuse, uncomplicated Assessment and Plan: 1. continue sertraline to 75 mg po daily 2. remeron 7,5mg po qhs for sleep. 3. Start trileptal 300mg po BID for mood on 03/17/2020 Greater than 50% of the session was spent on counseling and/or coordination of care Reason for contiued inpatient stay Substantial Risk for: harm to self
[2020-03-17] MEDS: Insulin Glargine,Hum.rec.anlog 100 UNIT/ML 10 ML VIAL 40 UNIT SUBCUT (22:40)
[2020-03-17] MEDS: Mirtazapine 7.5 MG TABLET PO (22:41)
[2020-03-17] MEDS: OXcarbazepine 300 MG TABLET PO (22:41)
[2020-03-17] MEDS: Atorvastatin Calcium 80 MG TABLET PO (22:41)
[2020-03-17 22:57] LABS: Glucose, Whole Blood 295 mg/dL (60-115)
[2020-03-17 22:57] LABS: Glucose, Whole Blood 222 mg/dL (60-115)
[2020-03-18 05:45] VITALS: BP 120/64; PULSE 78; RESP 18; TEMP 36.2; O2SAT 99
[2020-03-18 05:50] LABS: Glucose, Whole Blood 172 mg/dL (60-115)
[2020-03-18] MEDS: hydrOXYzine HCL 25 MG TABLET PO ×3 (06:22→21:48)
[2020-03-18] MEDS: LORazepam 0.5 MG TABLET PO ×3 (06:22→21:48)
[2020-03-18] MEDS: Insulin Lispro 100 UNIT/ML 3 ML VIAL SUBCUT ×4 (08:13→21:35)
[2020-03-18] MEDS: Lactulose 20 GM/30 ML SOLUTION 10 GM PO ×2 (08:15→21:39)
[2020-03-18 08:16] VITALS: BP 120/64; PULSE 78
[2020-03-18] MEDS: Clopidogrel Bisulfate 75 MG TABLET PO (08:16)
[2020-03-18] MEDS: carvediloL 3.125 MG TABLET PO ×2 (08:16→21:39)
[2020-03-18 08:17] VITALS: BP 120/64; PULSE 78
[2020-03-18] MEDS: metFORMIN HCl 1,000 MG TABLET 1000 MG PO ×2 (08:17→21:38)
[2020-03-18] MEDS: Valsartan 80 MG TABLET PO (08:17)
[2020-03-18] MEDS: guaiFENesin LA 600 MG TAB.ER.12H PO ×2 (08:18→21:38)
[2020-03-18] MEDS: Docusate Sodium 100 MG CAPSULE PO ×2 (08:18→21:39)
[2020-03-18] MEDS: OXcarbazepine 300 MG TABLET PO ×2 (08:18→21:39)
[2020-03-18] MEDS: Acetaminophen 325 MG TABLET 650 MG PO (11:45)
[2020-03-18] MEDS: Calcium Carbonate 750 MG TAB.CHEW PO (11:53)
[2020-03-18 15:49] LABS: Glucose, Whole Blood 226 mg/dL (60-115)
--- NOTE | 2020-03-18 17:14 | HO.PSYCHPN ---
Subjective Subjective Date of Service: 03/18/20 Reason For Visit: depression Interim History: Pt calmer today. He reports feeling less irritable. However, no insight into effects of his behaviors/explosive behaviors on others. He reports sleeping better. He denies SI/HI. He discussed with SW other options for housing. He has been visible in the unit. Social with select peers. Mental Status Exam Mental Status Exam Narrative: Appearance: appears much older than stated age, in wheelchair, poor hygiene, in NAD Behavior: cooperative Psychomotor: no agitation or retardation noted Speech: clear, normal rate/rhythm/volume, spontaneous Mood: depressed Affect: congruent, blunted, irritable at times AH/VH: none Delusions: none Insight/judgment: poor x 2. Memory/cog: alert, oriented x 3. grossly intact to conversational testing. Diagnostics Vital Signs (24Hr): Vital Signs - 24 hr 03/17/20 18:00 03/17/20 22:42 03/18/20 05:45 Temperature 98.2 F 97.2 F Pulse Rate 82 82 78 Respiratory Rate 18 Blood Pressure 94/55 L 94/60 120/64 Pulse Oximetry 99 03/18/20 08:16 03/18/20 08:17 Temperature Pulse Rate 78 78 Respiratory Rate Blood Pressure 120/64 120/64 Pulse Oximetry Body Mass Index 34.5 Labs Results: 03/14/20 13:29 03/16/20 08:18 Labs: Laboratory Results - last 48 hr 03/16/20 03/16/20 03/17/20 16:56 21:40 04:41 POC Glucose 305 H 332 H 187 H 03/17/20 03/17/20 03/17/20 12:58 17:05 22:15 POC Glucose 215 H 222 H 295 H 03/18/20 03/18/20 05:46 11:49 POC Glucose 172 H 226 H Imaging Radiology Impressions: ITS Impressions Abdomen Ultrasound 03/15/20 00:00 IMPRESSION: Limited study. CT demonstrated tiny gravel/stones in the gallbladder neck are not appreciated on this exam. No obvious gallbladder wall thickening or pericholecystic fluid appreciated to suspect acute inflammation. Close clinical correlation requested. Medications Medications Current Medications Generic Name Dose Route Start Last Admin Trade Name Freq PRN Reason Stop Dose Admin Acetaminophen 650 mg 03/07/20 19:22 03/18/20 11:45 Acetaminophen 325 Mg Tablet PO 650 mg Q6H PRN Administration Headache/Pain Mild Scale (1-3) Al Hydroxide/Mg Hydroxide 30 ml 03/07/20 19:22 03/11/20 00:50 Magnesium Hydrox/Alum Hydrox 30 Ml Oral.Susp PO 30 ml Q6H PRN Administration Heartburn/Nausea Albuterol Sulfate 2 puff 03/07/20 19:22 03/15/20 19:14 Albuterol Sulfate 90 Mcg 8 Gm Inhaler INHALE 2 puff Q4H PRN Administration Shortness Of Breath Atorvastatin Calcium 80 mg 03/07/20 21:00 03/17/20 22:41 Atorvastatin Calcium 80 Mg Tablet PO 80 mg BEDTIME VISHNU Administration Benzocaine 1 lozenge 03/08/20 19:12 03/10/20 21:27 Throat Lozenge, Medicated Lozenge MUCOUS MEM 1 lozenge Q2H PRN Administration Sore Throat Bisacodyl 10 mg 03/16/20 09:37 Bisacodyl 5 Mg Tablet.Dr PO DAILY PRN Constipation Calcium Carbonate 750 mg 03/14/20 11:42 03/18/20 11:53 Calcium Carbonate 750 Mg Tab.Chew PO 750 mg Q4H PRN Administration Dyspepsia Carvedilol 3.125 mg 03/07/20 21:00 03/18/20 08:16 Carvedilol 3.125 Mg Tablet PO 3.125 mg BID VISHNU Administration Protocol Clopidogrel Bisulfate 75 mg 03/08/20 09:00 03/18/20 08:16 Clopidogrel Bisulfate 75 Mg Tablet PO 75 mg DAILY VISHNU Administration Docusate Sodium 100 mg 03/15/20 21:00 03/18/20 08:18 Docusate Sodium 100 Mg Capsule PO 100 mg BID VISHNU Administration Guaifenesin 5 ml 03/08/20 19:12 03/11/20 09:13 Guaifenesin 100 Mg/5 Ml Liquid PO 5 ml Q4H PRN Administration Cough Guaifenesin 600 mg 03/08/20 21:00 03/18/20 08:18 Guaifenesin La 600 Mg Tab.Er.12h PO 600 mg BID VISHNU Administration Hydroxyzine HCl 25 mg 03/08/20 15:21 03/18/20 13:35 Hydroxyzine Hcl 25 Mg Tablet PO 25 mg Q6H PRN Administration anxiety/sleep Insulin Glargine 40 unit 03/07/20 21:00 03/17/20 22:40 Insulin Glargine,Hum.Rec.Anlog 100 Unit/Ml 10 Ml Vial SUBCUT 40 unit BEDTIME VISHNU Administration Insulin Human Lispro 0 unit 03/07/20 21:00 03/18/20 17:01 Insulin Lispro 100 Unit/Ml 3 Ml Vial SUBCUT 2 unit QIDACHS VISHNU Administration Protocol Lactulose 10 gm 03/17/20 11:45 03/18/20 08:15 Lactulose 20 Gm/30 Ml Solution PO 10 gm BID VISHNU Administration Lorazepam 0.5 mg 03/14/20 15:24 03/18/20 11:45 Lorazepam 0.5 Mg Tablet PO 0.5 mg Q4H PRN Administration Anxiety Magnesium Hydroxide 30 ml 03/07/20 19:22 Milk Of Magnesia 30 Ml Oral.Susp PO DAILY PRN Constipation Metformin HCl 1,000 mg 03/07/20 21:00 03/18/20 08:17 Metformin Hcl 1,000 Mg Tablet PO 1,000 mg BID VISHNU Administration Mirtazapine 7.5 mg 03/08/20 21:00 03/17/20 22:41 Mirtazapine 7.5 Mg Tablet PO 7.5 mg BEDTIME VISHNU Administration Oxcarbazepine 300 mg 03/17/20 21:00 03/18/20 08:18 Oxcarbazepine 300 Mg Tablet PO 300 mg BID VISHNU Administration Pharmacy Consult 1 each 03/07/20 19:22 Consult Rx Perform Med Rec MISCELLANE ONCE PRN Consult order Polyethylene Glycol 17 gm 03/08/20 09:00 03/18/20 08:21 Polyethylene Glycol 3350 17 Gm Powd.Pack PO Not Given DAILY VISHNU Sertraline HCl 75 mg 03/09/20 09:00 03/17/20 09:01 Sertraline Hcl 25 Mg Tablet PO 75 mg DAILY VISHNU Administration Valsartan 80 mg 03/08/20 09:00 03/18/20 08:17 Valsartan 80 Mg Tablet PO 80 mg DAILY VISHNU Administration Protocol Allergies Allergies Allergy/AdvReac Type Severity Reaction Status Date / Time levofloxacin [From Levaquin] AdvReac Rash Verified 03/05/20 11:45 morphine AdvReac Vomiting Verified 03/05/20 11:45 Penicillins AdvReac Rash Verified 01/20/21 11:45 Assessment & Plan Assessment & Plan (1) MDD (major depressive disorder), recurrent episode, severe: Status: Acute Code(s): F33.2 - Major depressive disorder, recurrent severe without psychotic features (2) Cocaine abuse: Status: Resolved Code(s): F14.10 - Cocaine abuse, uncomplicated Assessment and Plan: 1. continue sertraline to 75 mg po daily 2. remeron 7,5mg po qhs for sleep. 3. Start trileptal 300mg po BID for mood on 03/17/2020 Greater than 50% of the session was spent on counseling and/or coordination of care Reason for contiued inpatient stay Substantial Risk for: harm to self
[2020-03-18 18:26] LABS: Glucose, Whole Blood 195 mg/dL (60-115)
[2020-03-18 21:19] LABS: Glucose, Whole Blood 303 mg/dL (60-115)
[2020-03-18] MEDS: Atorvastatin Calcium 80 MG TABLET PO (21:38)
[2020-03-18] MEDS: Insulin Glargine,Hum.rec.anlog 100 UNIT/ML 10 ML VIAL 40 UNIT SUBCUT (21:38)
[2020-03-18 21:39] VITALS: BP 146/73; PULSE 82
[2020-03-18] MEDS: Mirtazapine 7.5 MG TABLET PO (21:39)
[2020-03-18 22:00] VITALS: PULSE 82; TEMP 36.5
[2020-03-19 03:50] VITALS: BP 143/74; PULSE 84; RESP 18; TEMP 36.4; O2SAT 100
[2020-03-19] MEDS: hydrOXYzine HCL 25 MG TABLET PO ×2 (03:56→21:48)
[2020-03-19] MEDS: LORazepam 0.5 MG TABLET PO ×3 (03:56→21:48)
[2020-03-19] MEDS: Calcium Carbonate 750 MG TAB.CHEW PO (03:56)
[2020-03-19] MEDS: Albuterol Sulfate 90 MCG 8 GM INHALER 2 PUFF INHALE (03:57)
[2020-03-19 06:59] LABS: Glucose, Whole Blood 203 mg/dL (60-115)
[2020-03-19] MEDS: Insulin Lispro 100 UNIT/ML 3 ML VIAL SUBCUT ×4 (08:13→21:34)
[2020-03-19] MEDS: metFORMIN HCl 1,000 MG TABLET 1000 MG PO ×2 (08:14→21:35)
[2020-03-19] MEDS: Docusate Sodium 100 MG CAPSULE PO ×2 (08:14→21:36)
[2020-03-19] MEDS: Lactulose 20 GM/30 ML SOLUTION 10 GM PO (08:14)
[2020-03-19 08:15] VITALS: BP 143/74; PULSE 84
[2020-03-19] MEDS: OXcarbazepine 300 MG TABLET PO ×2 (08:15→21:36)
[2020-03-19] MEDS: carvediloL 3.125 MG TABLET PO ×2 (08:15→21:36)
[2020-03-19] MEDS: Clopidogrel Bisulfate 75 MG TABLET PO (08:15)
[2020-03-19] MEDS: Sertraline HCL 25 MG TABLET 75 MG PO (08:15)
[2020-03-19] MEDS: guaiFENesin LA 600 MG TAB.ER.12H PO ×2 (08:16→21:35)
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
[2020-03-19 12:16] LABS: Glucose, Whole Blood 238 mg/dL (60-115)
[2020-03-19 12:21] VITALS: PULSE 84
[2020-03-19] MEDS: Valsartan 80 MG TABLET PO (12:21)
[2020-03-19 18:00] VITALS: BP 124/67; PULSE 87; TEMP 36.6
[2020-03-19] MEDS: Atorvastatin Calcium 80 MG TABLET PO (21:35)
[2020-03-19] MEDS: Insulin Glargine,Hum.rec.anlog 100 UNIT/ML 10 ML VIAL 40 UNIT SUBCUT (21:35)
[2020-03-19] MEDS: Lactulose 20 GM/30 ML SOLUTION PO (21:35)
[2020-03-19 21:36] VITALS: BP 124/63; PULSE 87
[2020-03-19] MEDS: Mirtazapine 7.5 MG TABLET PO (21:36)
[2020-03-19 22:22] LABS: Glucose, Whole Blood 326 mg/dL (60-115)
[2020-03-19 22:22] LABS: Glucose, Whole Blood 244 mg/dL (60-115)
[2020-03-20 06:05] VITALS: BP 129/8; PULSE 78; RESP 18; TEMP 36.6; O2SAT 99
[2020-03-20 06:12] LABS: Glucose, Whole Blood 152 mg/dL (60-115)
[2020-03-20] MEDS: metFORMIN HCl 1,000 MG TABLET 1000 MG PO (08:44)
[2020-03-20] MEDS: OXcarbazepine 300 MG TABLET PO (08:44)
[2020-03-20 08:45] VITALS: BP 138/78; PULSE 88
[2020-03-20] MEDS: Docusate Sodium 100 MG CAPSULE PO (08:45)
[2020-03-20] MEDS: Valsartan 80 MG TABLET PO (08:45)
[2020-03-20] MEDS: guaiFENesin LA 600 MG TAB.ER.12H PO (08:45)
[2020-03-20 08:46] VITALS: BP 138/78; PULSE 88
[2020-03-20] MEDS: Clopidogrel Bisulfate 75 MG TABLET PO (08:46)
[2020-03-20] MEDS: carvediloL 3.125 MG TABLET PO (08:46)
[2020-03-20] MEDS: Sertraline HCL 25 MG TABLET 75 MG PO (08:47)
[2020-03-20] MEDS: polyethylene glycoL 3350 17 GM POWD.PACK PO (08:48)
[2020-03-20] MEDS: Lactulose 20 GM/30 ML SOLUTION PO (08:48)
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
== END 2020-03-20 09:59 | disposition home or self-care (01) | DRG 885 ==
PROVIDERS: Psychiatry & Neurology Psychiatry; Admitting Provider Social Worker; Visit Provider Social Worker
DX: F33.2 Major depressive disorder, recurrent severe without psychotic features (principal); R45.851 Suicidal ideations; F14.10 Cocaine abuse, uncomplicated; Z88.0 Allergy status to penicillin; Z88.5 Allergy status to narcotic agent; Z79.02 Long term (current) use of antithrombotics/antiplatelets; Z79.899 Other long term (current) drug therapy
CPT/HCPCS: 36415; 76700; 80053; 80076; 82150; 82565; 82947; 82977; 83690; 85025; 99222; 99232; J0515; J2060